=== PATIENT | female | born 1975 | race Caucasian/White ===

== ENCOUNTER → 2016-12-24 | Outpatient (CLI) | payer OTHER ==
--- NOTE | 2016-12-24 08:18 | MM ---
Reason for exam: clinical finding. History: Family history of breast cancer in mother at age 30. Indicated problem(s): pain in both breasts. Physical Findings: Nurse Summary: 0.5cm nodule in the right breast at 8:30 (nurse dallin). MG Diagnostic Mammo w CAD LIBERTAD Bilateral CC and MLO view(s) were taken. There are scattered fibroglandular densities. There is chronic nodularity in the right breast. These results were verbally communicated with the patient and result sheet given to the patient on 12/24/16. ASSESSMENT: Incomplete: need additional imaging evaluation, BI-RAD 0 RECOMMENDATION: Ultrasound of the right breast.
--- NOTE | 2016-12-24 08:20 | USB ---
Reason for exam: additional evaluation requested from abnormal screening. History: Family history of breast cancer in mother at age 30. US Breast Limited RT Right breast ultrasound demonstrates no cystic or solid lesion seen. These results were verbally communicated with the patient and result sheet given to the patient on 12/24/16. ASSESSMENT: Probably benign, BI-RAD 3 RECOMMENDATION: Follow-up diagnostic mammogram of the right breast in 6 months. Manage patient on a clinical basis. Negative mammogram/sonogram should not deter biopsy of clinically palpable lesion.
== END | disposition home or self-care (01) ==
LOC: RADMAMWWP 06:57
PROVIDERS: ATTEND Family Medicine
DX: R92.2 Inconclusive mammogram (principal); R92.8 Other abnormal and inconclusive findings on diagnostic imaging of breast; Z80.3 Family history of malignant neoplasm of breast
CPT/HCPCS: 76642; G0204

== ENCOUNTER → 2017-02-07 | Outpatient (CLI) | payer OTHER ==
--- NOTE | 2017-02-07 09:31 | MR ---
EXAMINATION TYPE: MR brain wo con DATE OF EXAM: 02/07/2017 9:25 AM. COMPARISON: CT scan of the brain dated 02/18/2011. HISTORY: Slurred speech. Technique: Multiplanar, multiecho imaging of the brain was obtained without intravenous contrast. FINDINGS: Structures are unremarkable. There is a normal craniocervical junction. Echoplanar diffusion imaging shows no evidence of restricted diffusion. There are normal vascular flow voids. The orbits are normal. There is no evidence of a CP angle mass lesion. No focal lesion, mass effect or midline shift is seen. I do not see evidence of intracranial blood. IMPRESSION: NORMAL MRI OF THE BRAIN.
== END | disposition home or self-care (01) ==
LOC: RADMRIMAIN 08:28
PROVIDERS: ATTEND Psychiatry & Neurology Neurology
DX: R47.81 Slurred speech (principal)
CPT/HCPCS: 70551

== ENCOUNTER → 2017-07-30 | Outpatient (CLI) | payer OTHER ==
--- NOTE | 2017-07-30 08:23 | MM ---
Reason for exam: follow-up at short interval from prior study. Last mammogram was performed 7 months ago. History: Family history of breast cancer in mother at age 30. Physical Findings: Nurse did not find any significant physical abnormalities on exam. MG Diagnostic Mammo RT w CAD CC and MLO view(s) were taken of the right breast. Prior study comparison: December 24, 2016, bilateral MG diagnostic mammo w CAD LIBERTAD. There are scattered fibroglandular densities. There is no discrete abnormality. No significant new findings when compared with previous films. These results were verbally communicated with the patient and result sheet given to the patient on 07/30/17. ASSESSMENT: Negative, BI-RAD 1 RECOMMENDATION: Routine screening mammogram of both breasts in 6 months. Back on schedule for December 2017.
== END | disposition home or self-care (01) ==
LOC: RADMAMWWP 07:37
PROVIDERS: ATTEND Family Medicine
DX: R92.8 Other abnormal and inconclusive findings on diagnostic imaging of breast (principal)
CPT/HCPCS: 77065

== ENCOUNTER → 2018-04-18 | Outpatient (CLI) | payer OTHER ==
--- NOTE | 2018-04-21 11:00 | MM ---
Reason for exam: screening (asymptomatic). Last mammogram was performed 9 months ago. History: Family history of breast cancer in mother at age 30. Physical Findings: A clinical breast exam by your physician is recommended on an annual basis and results should be correlated with mammographic findings. MG 3D Screening Mammo W/Cad Bilateral CC and MLO view(s) were taken. Prior study comparison: July 30, 2017, right breast MG diagnostic mammo RT w CAD. December 24, 2016, bilateral MG diagnostic mammo w CAD LIBERTAD. There are scattered fibroglandular densities. Right intramammary node noted. No suspicious abnormality. No significant changes when compared with prior studies. ASSESSMENT: Negative, BI-RAD 1 RECOMMENDATION: Routine screening mammogram of both breasts in 1 year.
== END | disposition home or self-care (01) ==
LOC: RADMAMWWP 08:37
PROVIDERS: ATTEND Family Medicine
DX: Z12.31 Encounter for screening mammogram for malignant neoplasm of breast (principal); Z80.3 Family history of malignant neoplasm of breast
CPT/HCPCS: 77063; 77067

== ENCOUNTER 2019-03-27 15:48 | Inpatient (IN) | payer MEDICAID, OTHER ==
--- NOTE | 2019-03-27 16:34 | ED ---
General Adult HPI - General Source: patient Mode of arrival: EMS Limitations: no limitations <Zacarias Mullen - Last Filed: 03/27/19 16:58> <Vance Guo - Last Filed: 03/27/19 20:36> - General Chief complaint: Psychiatric Symptoms Stated complaint: EPS eval Time Seen by Provider: 03/27/19 16:26 - History of Present Illness Initial comments: Dictation was produced using [employer] dictation software. please excuse any grammatical, word or spelling errors. Chief Complaint: 43 year old female brought in by EMS for suicidal ideation. History of Present Illness: It is a 43-year-old female who was brought in by EMS for suicidal ideation. Patient was in an argument with her boyfriend and said something along the lines of I don't want to live anymore. Reports that she said he states that she was upset. Her significant other called enforcement.. Enforcement became involved" patient. Patient reports that she said these things out of this appointment. She was upset with her significant other due to family issues. He has no medical complaints at this time. The ROS documented in this emergency department record has been reviewed and confirmed by me. Those systems with pertinent positive or negative responses have been documented in the HPI. All other systems are other negative and/or noncontributory. PHYSICAL EXAM: General Impression: Alert and oriented x3, not in acute distress HEENT: Normocephalic atraumatic, extra-ocular movements intact, pupils equal and reactive to light bilaterally, mucous membranes moist. Cardiovascular: Heart regular rate and rhythm, S1&S2 audible, no murmurs, rubs or gallops Chest: Lungs clear to auscultation bilaterally, no rhonchi, no wheeze, no rales Abdomen: Bowel sounds present, abdomen soft, non-tender, non-distended, no organomegaly Musculoskeletal: Pulses present and equal in all extremities, no peripheral edema Motor: no focal deficits noted Neurological: CN II-XII grossly intact, no focal motor or sensory deficits noted Skin: Intact with no visualized rashes Psych: Normal affect and mood ED course: 33-year-old female presents with suicidal ideation. She was petition by [facility]. She is cooperative. She denies any medical complaints at this time. Signs upon arrival are within acceptable limits. Physical examination is benign. Patient is medically cleared for EPS evaluation. Patient care sent out to oncoming physician for follow-up of EPS recommendations. (Zacarias Mullen) - Related Data Home Medications Medication Instructions Recorded Confirmed buPROPion XL [Wellbutrin Xl] 300 mg PO HS 03/28/15 03/27/19 oxyCODONE-APAP 10-325MG [Percocet 1 tab PO QID PRN 03/28/15 03/27/19 10-325] Cholecalciferol [Vitamin D3] 5,000 unit PO DAILY 06/04/18 03/27/19 Escitalopram [Lexapro] 20 mg PO DAILY 06/04/18 03/27/19 Levothyroxine Sodium [Synthroid] 75 mcg PO DAILY 06/04/18 03/27/19 OXcarbazepine [Trileptal] 600 mg PO BID 06/04/18 03/27/19 busPIRone HCL [Buspar] 30 mg PO BID 06/04/18 03/27/19 risperiDONE 6 mg PO BID 06/04/18 03/27/19 Allergies Allergy/AdvReac Type Severity Reaction Status Date / Time cortisone [Cortisone] Allergy "FELT LIKE Verified 03/27/19 16:32 THROAT WAS CLOSING UP" latex Allergy Rash/Hives, Verified 03/27/19 16:32 ITCHING STEROIDS Allergy "FELT LIKE Uncoded 03/27/19 16:32 THROAT WAS CLOSING UP" Review of Systems ROS Other: All systems not noted in ROS Statement are negative. <Zacarias Mullen - Last Filed: 03/27/19 16:58> ROS Other: All systems not noted in ROS Statement are negative. <Vance Guo - Last Filed: 03/27/19 20:36> ROS Statement: Those systems with pertinent positive or pertinent negative responses have been documented in the HPI. Past Medical History Past Medical History: Asthma, Thyroid Disorder Additional Past Medical History / Comment(s): BACK PAIN, History of Any Multi-Drug Resistant Organisms: None Reported Past Surgical History: Hernia Repair, Tubal Ligation, Uterine Ablation Additional Past Surgical History / Comment(s): CYST ON FACE REMOVED, OVARY REMOVED, HIATAL HERNIA REPAIR Past Anesthesia/Blood Transfusion Reactions: Motion Sickness Past Psychological History: Anxiety, Bipolar, Panic Disorder Smoking Status: Current every day smoker Past Alcohol Use History: None Reported Past Drug Use History: Cocaine - Past Family History Mother Family Medical History: Cancer Additional Family Medical History / Comment(s): BREAST <Zacarias Mullen - Last Filed: 03/27/19 16:58> General Exam Limitations: no limitations <Zacarias Mullen - Last Filed: 03/27/19 16:58> Course Vital Signs 03/27/19 16:14 Temperature 97.0 F L Pulse Rate 74 Respiratory 18 Rate Blood Pressure 114/77 O2 Sat by Pulse 94 L Oximetry Medical Decision Making <Vance Guo - Last Filed: 03/27/19 20:36> - Medical Decision Making Patient seen by mental health services with plan for admission (Vance Guo) Disposition <Zacarias Mullen - Last Filed: 03/27/19 16:58> Is patient prescribed a controlled substance at d/c from ED?: No Decision Time: 20:36 <Vance Guo - Last Filed: 03/27/19 20:36> Clinical Impression: Depression Disposition: TRANSFER TO PSYCH HOSP/UNIT Referrals: Lawrence David MD [Primary Care Provider] - 1-2 days
[2019-03-27 20:59] LABS: Phencyclidine Screen,Urine Not Detected (NotDetected); Urn Cannabinoid Scrn Not Detected (NotDetected)
[2019-03-27 21:00] LABS: Amphetamine Screen,Urine Detected (NotDetected); Barbiturate Screen,Urine Not Detected (NotDetected); Benzodiazepines Screen,Urine Not Detected (NotDetected); Cocaine Screen,Urine Detected (NotDetected); Methadone Screen, Urine Not Detected (NotDetected); Opiate Screen,Urine Not Detected (NotDetected); Oxycodone Screen, Urine Detected (NotDetected); Tricyclic Antidepressant,Urine Not Detected (NotDetected)
[2019-03-27] MEDS ORDERED: LORazepam 1 MG TAB PO PRN (21:18)
[2019-03-27] MEDS ORDERED: ZIPRASIDONE 20 MG VIAL IM PRN (21:18)
[2019-03-27] MEDS ORDERED: MAGNESIUM HYDROXIDE 2,400 MG/10 ML CUP PO PRN (21:18)
[2019-03-27] MEDS ORDERED: MAG HYDROX/AL HYDROX/SIMETH 30 ML CUP PO PRN (21:18)
[2019-03-27] MEDS: HYDROcodone/APAP 5-325MG 1 EACH TAB PO SCH (21:57)
[2019-03-28] MEDS: LEVOTHYROXINE 75 MCG TAB PO SCH (06:06)
[2019-03-28 07:00] LABS: Anisocytosis Slight; HCT 41.2 % (34.0-46.0); HGB 13.5 gm/dL (11.4-16.0); MCH 27.7 pg (25.0-35.0); MCHC 32.8 g/dL (31.0-37.0); MCV 84.4 fL (80.0-100.0); Mean Platelet Volume 8.3; Platelet Count 391 k/uL (150-450); RBC 4.88 m/uL (3.80-5.40); RDW 17.3 % (11.5-15.5); WBC 9.8 k/uL (3.8-10.6)
[2019-03-28 07:08] LABS: ALT 22 U/L (9-52); AST 22 U/L (14-36); African American GFR (CKD) >90 (>60 ml/min/1.73 sqM); Albumin 3.2 g/dL (3.5-5.0); Alkaline Phosphatase 68 U/L (38-126); Anion Gap 6 mmol/L; Blood Urea Nitrogen 9 mg/dL (7-17); Calcium 8.6 mg/dL (8.4-10.2); Carbon Dioxide 28 mmol/L (22-30); Chloride 105 mmol/L (98-107); Cholesterol 137 mg/dL (<200); Glucose 97 mg/dL (74-99); HDL Cholesterol 40 mg/dL (40-60); LDL Cholesterol,Calculated 79 mg/dL (0-99); Potassium 3.5 mmol/L (3.5-5.1); Sodium 139 mmol/L (137-145); Total Bilirubin 0.2 mg/dL (0.2-1.3); Total Protein 5.4 g/dL (6.3-8.2); Triglycerides 90 mg/dL (<150)
[2019-03-28 07:24] LABS: Lymphocytes # (M) 3.53 k/uL (1.0-4.8); Neutrophils % (M) 60 %; Nucleated Red Blood Cells 0 /100 WBC (0-0); Total Cells Counted 100
[2019-03-28] MEDS ORDERED: risperiDONE 1 MG TAB PO SCH (09:00)
[2019-03-28] MEDS: NICOTINE 21MG/24HR PATCH TRANSDERM SCH (09:47)
[2019-03-28] MEDS: HYDROcodone/APAP 5-325MG 1 EACH TAB PO SCH ×3 (09:48→20:21)
[2019-03-28] MEDS: buPROPion XL 300 MG TAB.ER.24H PO SCH (09:48)
[2019-03-28] MEDS: busPIRone HCl 10 MG TAB PO SCH ×2 (09:48→20:21)
[2019-03-28] MEDS: ESCITALOPRAM 20 MG TAB PO SCH (09:48)
[2019-03-28] MEDS: CHOLECALCIFEROL 1,000 UNIT TAB PO SCH (09:49)
[2019-03-28] MEDS: OXcarbazepine 300 MG TAB PO SCH ×2 (09:49→20:21)
--- NOTE | 2019-03-28 12:38 | P.HP ---
Psychiatric H&P - . History & Physical: Allergies Allergy/AdvReac Type Severity Reaction Status Date / Time cortisone [Cortisone] Allergy "FELT LIKE Verified 03/27/19 16:32 THROAT WAS CLOSING UP" latex Allergy Rash/Hives, Verified 03/27/19 16:32 ITCHING STEROIDS Allergy "FELT LIKE Uncoded 03/27/19 16:32 THROAT WAS CLOSING UP" Vital Signs Temp 98.4 F 03/28/19 06:35 Pulse 58 L 03/28/19 06:35 Resp 16 03/28/19 06:35 BP 114/74 03/28/19 06:35 Pulse Ox 94 L 03/27/19 16:14 Intake & Output 03/27/19 03/28/19 03/28/19 18:59 06:59 18:59 Weight 69.4 kg Laboratory Last Values WBC 9.8 k/uL (3.8-10.6) 03/27/19 22:01 RBC 4.88 m/uL (3.80-5.40) 03/27/19 22:01 Hgb 13.5 gm/dL (11.4-16.0) 03/27/19 22:01 Hct 41.2 % (34.0-46.0) 03/27/19 22:01 MCV 84.4 fL (80.0-100.0) 03/27/19 22:01 MCH 27.7 pg (25.0-35.0) 03/27/19 22:01 MCHC 32.8 g/dL (31.0-37.0) 03/27/19 22:01 RDW 17.3 % (11.5-15.5) H 03/27/19 22:01 Plt Count 391 k/uL (150-450) 03/27/19 22:01 Neutrophils % (Manual) 60 % 03/27/19 22:01 Lymphocytes % (Manual) 36 % 03/27/19 22:01 Monocytes % (Manual) 2 % 03/27/19 22:01 Eosinophils % (Manual) 2 % 03/27/19 22:01 Neutrophils # (Manual) 5.88 k/uL (1.3-7.7) 03/27/19 22:01 Lymphocytes # (Manual) 3.53 k/uL (1.0-4.8) 03/27/19 22:01 Monocytes # (Manual) 0.20 k/uL (0-1.0) 03/27/19 22:01 Eosinophils # (Manual) 0.20 k/uL (0-0.7) 03/27/19 22:01 Nucleated RBCs 0 /100 WBC (0-0) 03/27/19 22:01 Manual Slide Review Performed 03/27/19 22:01 Anisocytosis Slight 03/27/19 22: Sodium 139 mmol/L (137-145) 03/27/19 22: Potassium 3.5 mmol/L (3.5-5.1) 03/27/19 22: Chloride 105 mmol/L (98-107) 03/27/19 22:01 Carbon Dioxide 28 mmol/L (22-30) 03/27/19 22: Anion Gap 6 mmol/L 03/27/19 22: BUN 9 mg/dL (7-17) 03/27/19 22: Creatinine 0.61 mg/dL (0.52-1.04) 03/27/19 22: Est GFR (CKD-EPI)AfAm >90 (>60 ml/min/1.73 sqM) 03/27/19 22:01 Est GFR (CKD-EPI)NonAf >90 (>60 ml/min/1.73 sqM) 03/27/19 22: Glucose 97 mg/dL (74-99) 03/27/19 22: Calcium 8.6 mg/dL (8.4-10.2) 03/27/19 22: Total Bilirubin 0.2 mg/dL (0.2-1.3) 03/27/19 22: AST 22 U/L (14-36) 03/27/19 22:01 ALT 22 U/L (9-52) 03/27/19 22: Alkaline Phosphatase 68 U/L (38-126) 03/27/19 22: Total Protein 5.4 g/dL (6.3-8.2) L 03/27/19 22: Albumin 3.2 g/dL (3.5-5.0) L 03/27/19 22:01 Triglycerides 90 mg/dL (<150) 03/27/19 22: Cholesterol 137 mg/dL (<200) 03/27/19 22:01 LDL Cholesterol, Calc 79 mg/dL (0-99) 03/27/19 22:01 HDL Cholesterol 40 mg/dL (40-60) 03/27/19 22:01 TSH 1.810 mIU/L (0.465-4.680) 03/27/19 22:01 Urine Opiates Screen Not Detected (NotDetected) 03/27/19 18:46 Ur Oxycodone Screen Detected (NotDetected) H 03/27/19 18:46 Urine Methadone Screen Not Detected (NotDetected) 03/27/19 18:46 Ur Propoxyphene Screen Not Detected (NotDetected) 03/27/19 18:46 Ur Barbiturates Screen Not Detected (NotDetected) 03/27/19 18:46 U Tricyclic Antidepress Not Detected (NotDetected) 03/27/19 18:46 Ur Phencyclidine Scrn Not Detected (NotDetected) 03/27/19 18:46 Ur Amphetamines Screen Detected (NotDetected) H 03/27/19 18:46 U Methamphetamines Scrn Not Detected (NotDetected) 03/27/19 18:46 U Benzodiazepines Scrn Not Detected (NotDetected) 03/27/19 18:46 Urine Cocaine Screen Detected (NotDetected) H 03/27/19 18:46 U Marijuana (THC) Screen Not Detected (NotDetected) 03/27/19 18:46 03/28/19 12:27 IDENTIFYING DATA: This patient is a 43-year-old single female was admitted to the mental health unit with suicidal ideation. HPI: Patient presented with a police petition indicating she had threatened suicide via overdose. The patient was at home with family and had gotten into a verbal altercation with her boyfriend. She states she was overwhelmed and threatened to overdose in an effort to kill herself. She states she's been fighting with her boyfriend over the last several weeks and it seems to be escalating. She has been more tearful energies been low appetites decreased and she is feeling depressed. She describes hopeless feelings. She reports no homicidal ideation intent or plan. She endorses no auditory or visual hallucinations or any specific delusions. She endorses no hypomanic or manic episodes. She describes intermittent feelings of anxiety she describes a history of panic attacks. PAST PSYCHIATRIC HISTORY: This is the patient's second inpatient psychiatric hospitalization, she endorses a history of suicide attempt in 2003 when she overdosed with 20 pills. She is currently prescribed Wellbutrin XL 300 mg in the morning Lexapro 20 mg daily Risperdal 3 mg twice daily Trileptal 600 mg twice daily BuSpar 30 mg twice daily. She states she's been on these medicines for several years with the exception of BuSpar which was more recently added. Her previous psychiatrist Dr. Farr had initiated most of the psychotropic medications. She struggles in identifying her own diagnosis states that she has depression and anxiety. She later states she has bipolar 2 disorder but insists she has no history of hypomanic or manic episodes. PMH: Chronic back pain she sees Dr. Arce with pain management and is given Percocet 10 mg every 4 hours. She is treated for hypothyroidism with levothyroxin. ALLERGIES: Steroids MEDICATIONS: Refer to [facility] CHEMICAL DEPENDENCY HISTORY: She reports no use of alcohol or marijuana, urine drug screen was positive for cocaine and amphetamine and oxycodone. She states that she infrequently uses cocaine and refuses to provide a frequency of use, she states she does not want this information shared with her pain physician as he will discontinue her oxycodone. She insists that she has used no amphetamine. No history of inpatient chemical dependency treatment that she reports. FAMILY PSYCHIATRIC HISTORY: Her mother was known to have bipolar disorder, no suicides in the family FAMILY CHEMICAL DEPENDENCY HISTORY: None reported SOCIAL HISTORY: Patient is 43 years old she is single she has 2 children ages 14 and 24 she resides with her daughter and boyfriend. She has been with her boyfriend off and on for 18 years. She went as far as 10th grade in school no history of service. She is on disability for her back pain and depression. Legal history includes a drunken disorderly charge at age 17 and uttering and publishing charge at age 28. No abuse history reported. MENTAL STATUS EXAM: The patient is alert but tired appearing she is not lethargic. She has a disheveled appearance she is dressed in hospital gowns. Eye contact is intermittent. She maintains a bland affect. She is noted to demonstrate a repetitive movement of her lower jaw and she indicates that she chews her tongue. She demonstrates a pill-rolling tremor of her right hand at rest. She reports a depressed mood with hopelessness thinking and suicidal thoughts. She indicates that she is having a panic attack while we were talking but there was no objective evidence of that report area She reports no homicidal ideation intent or plan. She reports no auditory or visual hallucinations or any specific delusions. She was not particularly motivated for this interview she provided no spontaneous information she provided only brief answers and was interested in concluding the interview to go back down to her room. She demonstrated no verbal or physical aggressiveness. She is oriented to person place and date. She is able to name the days of the week backwards. STRENGTHS/WEAKNESSES: Strengths: Income: Housing support from [facility], weaknesses: Use of cocaine, impaired coping skills in the context of altercations with her boyfriend INTELLECTUAL FUNCTIONING: Below average to average IMPRESSIONS: [] 1. Depression and specified rule out major depressive disorder recurrent severe without psychosis, anxiety unspecified, rule out bipolar disorder, cocaine use disorder, rule out opioid use disorder 2. Rule out personality disorder traits PLAN: The patient has been admitted to the mental health unit voluntarily. We reviewed her presenting symptoms and treatment options. At this time she feels that no change needs to occur to her psychotropic medications. We discussed that her Risperdal dose is higher and they could be contributing to the movement disorders noted above i.e. the pill-rolling tremor and the tongue chewing behavior. We also discussed that 6 mg of Risperdal they could contribute to f eelings of fatigue throughout the day. Her current prescription of Percocet could also contribute to fatigue throughout the day. We will continue the Risperdal the lower the dose to 2 mg twice daily, continue Lexapro BuSpar Wellbutrin XL Trileptal as written. Trileptal level has been ordered. She will be seen by internal medicine for routine history and physical exam. It would be helpful to obtain more information from [facility] in terms of her diagnosis. Social work will complete a psychosocial assessment and begin discharge planning. We'll involve family/friends in treatment and discharge planning as she will allow. Vital signs will be reviewed. Although she has not attended so far we will encourage participation in groups.
[2019-03-28 18:20] LABS: Hemoglobin A1C 6.1 % (4.0-6.0)
[2019-03-28] MEDS: risperiDONE 2 MG TAB PO SCH (20:21)
[2019-03-29] MEDS: LEVOTHYROXINE 75 MCG TAB PO SCH (05:51)
[2019-03-29] MEDS: CHOLECALCIFEROL 1,000 UNIT TAB PO SCH (08:27)
[2019-03-29] MEDS: busPIRone HCl 10 MG TAB PO SCH ×2 (08:27→20:35)
[2019-03-29] MEDS: HYDROcodone/APAP 5-325MG 1 EACH TAB PO SCH ×3 (08:28→20:36)
[2019-03-29] MEDS: buPROPion XL 300 MG TAB.ER.24H PO SCH (08:28)
[2019-03-29] MEDS: ESCITALOPRAM 20 MG TAB PO SCH (08:28)
[2019-03-29] MEDS: OXcarbazepine 300 MG TAB PO SCH ×2 (08:28→20:35)
[2019-03-29] MEDS: NICOTINE 21MG/24HR PATCH TRANSDERM SCH (08:28)
[2019-03-29] MEDS: risperiDONE 2 MG TAB PO SCH ×2 (08:28→20:35)
--- NOTE | 2019-03-29 12:08 | P.PN ---
Progress Note - Text Interval history: The patient is found in her room she follows me to an interview room. She indicates her mood is better. She states she feels more awake. She indicates that she had not slept well 2 days prior to this admission and slept most of the day yesterday. Appetite intact she ate breakfast. She asks for Prilosec to be restarted and asked for something for her cough. She did not attend groups this morning but states she will attend this afternoon. She states her's been a complete resolution of suicidal thoughts. She indicates she had a visit from her boyfriend last evening that went well. Mental status exam: The patient is alert more so than yesterday. She seated in the chair calmly. Affect is constricted. Eye contacts appropriate. She initiates a little conversation spontaneously but mainly responds to questions. She reports her mood is fine she is reporting no suicidal ideation intent or plan. She is reporting no auditory or visual hallucinations or any specific delusions. She demonstrates no tangential thinking loose associations or flight of ideas. She does not appear hypomanic or manic active evidence of psychosis. She seated calmly in the chair without any verbal or physical aggressiveness. She continues to demonstrate a tongue shooing motion and pill-rolling tremor of her hand as noted yesterday. She is oriented to person place and date. Plan: The patient indicates that she was overwhelmed by the altercations with her boyfriend and made suicidal statements but she didn't really intend to act on those thoughts. She reports that they had a good visit and she has no suicidal ideation intent or plan. We will continue her medications as written. Consideration could be given to reducing the Risperdal further and possibly investigating whether or not an antipsychotic is needed. Further contact with community mental health would be needed. We will monitor her for safety and encourage participation in the milieu. Vital signs reviewed.
[2019-03-29] MEDS: ACETAMINOPHEN TAB 325 MG TAB PO PRN (12:10)
[2019-03-29] MEDS: guaiFENesin SYRUP 100MG/5ML 200 MG/10 ML CUP PO PRN ×2 (12:37→17:50)
[2019-03-29 16:55] VITALS: BMI 27.2
[2019-03-29] MEDS: PANTOPRAZOLE 40 MG TABLET PO SCH (17:51)
--- NOTE | 2019-03-29 23:55 | CONS ---
CONSULTATION SUBJECTIVE: A 43-year-old white female came into the mental health unit for severe depression fighting with her boyfriend at home. Severely depressed. Medical consult here. She has a history of hypothyroidism, nicotine addiction, GERD, which is causing a cough, nicotine addiction for which she takes Wellbutrin XR at home, as well as history of anxiety and mood disorder. HOME MEDICATIONS: 1. Risperdal 6 mg b.i.d. 2. She goes to [facility] for some Percocet. 3. BuSpar 30 mg b.i.d. 4. Wellbutrin XR 300 mg daily. 5. Trileptal 600 mg b.i.d. 6. Synthroid 75 mcg daily. 7. Lexapro 20 mg daily. 8. Vitamin D 5000 units daily. REVIEW OF SYSTEMS: Fourteen point review of systems negative except for mentioned in HPI. LABORATORY DATA: Labs reviewed. PHYSICAL EXAMINATION: Cardiovascular S1-S2. LUNGS: Clear. GI soft. Hematology negative Homans. Psych fair mood and affect. NEUROLOGIC: Alert and oriented x3. ASSESSMENT: 1. Hypothyroidism. 2. Depression. 3. Gastroesophageal reflux disease. 4. Nicotine addiction. 5. Dyslipidemia. PLAN: 1. Continue home medications. 2. Wait for psych consultation. 3. Nicotine patch. 4. Please see further orders for consult. MMODL / IJN: [id number] /
[2019-03-30] MEDS: LEVOTHYROXINE 75 MCG TAB PO SCH (06:42)
[2019-03-30] MEDS: PANTOPRAZOLE 40 MG TABLET PO SCH ×2 (08:24→17:36)
[2019-03-30] MEDS: ESCITALOPRAM 20 MG TAB PO SCH (08:24)
[2019-03-30] MEDS: OXcarbazepine 300 MG TAB PO SCH ×2 (08:24→20:35)
[2019-03-30] MEDS: NICOTINE 21MG/24HR PATCH TRANSDERM SCH (08:24)
[2019-03-30] MEDS: CHOLECALCIFEROL 1,000 UNIT TAB PO SCH (08:24)
[2019-03-30] MEDS: busPIRone HCl 10 MG TAB PO SCH ×2 (08:24→20:34)
[2019-03-30] MEDS: HYDROcodone/APAP 5-325MG 1 EACH TAB PO SCH ×3 (08:26→20:36)
[2019-03-30] MEDS: risperiDONE 2 MG TAB PO SCH ×2 (08:26→20:36)
[2019-03-30] MEDS: buPROPion XL 300 MG TAB.ER.24H PO SCH (08:34)
--- NOTE | 2019-03-30 11:21 | P.PN ---
Progress Note - Text Interval history: The patient is found in her room she follows me to an interview room. She indicates her mood is improving. She was able to sleep last night she has been eating she selectively attended group. We reviewed her current psychotropic medications her questions were answered. She indicates her boyfriend visited over the weekend. She states that he has been more supportive. We spent some time discussing the need for them to communicate more effectively and use strategies to compromise. Per [facility] the patient has been previously diagnosed with bipolar 2 disorder. Mental status exam: The patient is alert and fact more alert than the previous 2 days. She is dressed in her own clothing hygiene grooming adequate. Eye contact appropriate. She continues to have an ongoing movement of her lower jaw and tongue shooing motion. She demonstrates some pill-rolling tremor of her right hand. She reports her mood is improving she reports hopelessness thinking is improving. She feels safe she is reporting no homicidal ideation intent or plan. She is endorsing no auditory or visual hallucinations or any specific delusions. There is no observed evidence of psychosis. She does not appear hypomanic or manic at this time. Insight and judgment improving. Impression/plan: Depression, cocaine use disorder, the patient will continue on her current psychotropic medications. We discussed lowering the Risperdal further but she prefers to continue her medications as written and she will follow with her outpatient psychiatrist. She is encouraged to more fully participate in the milieu. Social work will attempt to arrange a support meeting. We will monitor her for safety and further and if she demonstrates continued improvement/stability we will consider discharging her tomorrow.
[2019-03-30] MEDS: guaiFENesin SYRUP 100MG/5ML 200 MG/10 ML CUP PO PRN ×2 (11:35→18:58)
[2019-03-30] MEDS: ACETAMINOPHEN TAB 325 MG TAB PO PRN (11:51)
[2019-03-30] MEDS ORDERED: BENZOCAINE/MENTHOL LOZENG 1 EACH LOZENGE MUCOUS MEM PRN (20:07)
[2019-03-31] MEDS: LEVOTHYROXINE 75 MCG TAB PO SCH (06:23)
[2019-03-31 06:52] VITALS: BP 102/56; PULSE 63; RESP 18; TEMP 98.3
[2019-03-31] MEDS: CHOLECALCIFEROL 1,000 UNIT TAB PO SCH (08:25)
[2019-03-31] MEDS: NICOTINE 21MG/24HR PATCH TRANSDERM SCH (08:25)
[2019-03-31] MEDS: HYDROcodone/APAP 5-325MG 1 EACH TAB PO SCH ×2 (08:26→14:58)
[2019-03-31] MEDS: PANTOPRAZOLE 40 MG TABLET PO SCH (08:27)
[2019-03-31] MEDS: busPIRone HCl 10 MG TAB PO SCH (08:27)
[2019-03-31] MEDS: risperiDONE 2 MG TAB PO SCH (08:27)
[2019-03-31] MEDS: OXcarbazepine 300 MG TAB PO SCH (08:27)
[2019-03-31] MEDS: buPROPion XL 300 MG TAB.ER.24H PO SCH (08:27)
[2019-03-31] MEDS: ESCITALOPRAM 20 MG TAB PO SCH (08:27)
--- NOTE | 2019-03-31 09:35 | P.DS ---
Providers Date of admission: 03/27/19 21:10 Expected date of discharge: 03/31/19 Attending physician: Anant Darling Consults: 03/27/19 21:18 Consult Physician Routine Consulting Provider: Lawrence David Consult Reason/Comments: medical management Do you want consulting provider notified?: Yes, Notify in am Primary care physician: Lawrence David - Discharge Diagnosis(es) (1) Bipolar II disorder, most recent episode major depressive Current Visit: Yes Status: Acute Priority: High (2) Cocaine use disorder Current Visit: Yes Status: Acute Priority: High Hospital Course: Brief summary of admission note: This patient is a 43-year-old single female was admitted to the mental health unit with suicidal ideation. The patient presented with a petition completed by police communications operator stating she had threatened suicide via overdose. The patient was at home with family had gotten into a verbal altercation with her boyfriend and felt overwhelmed. He states that they've been fighting over the last several weeks. She describes being more tearful, energy has been low, she's been feeling more depressed and hopeless. She has a history of bipolar 2 disorder she is treated with [facility]. She was also diagnosed with cocaine use disorder. Her drug screen was positive for oxycodone, amphetamines, and cocaine. Summary of hospital course: The patient was admitted to the mental health unit voluntarily. We reviewed her presenting symptoms and treatment options. She was continued on her Risperdal Trileptal Lexapro BuSpar. She was seen by internal medicine for routine history and physical exam. She met with social work to complete a psychosocial assessment and begin discharge planning. In evaluating her it was observed that she was fairly sedated and she was also demonstrating an abnormal mouth movement as well as a pill-rolling tremor. We decided to reduce her Risperdal to 2 mg twice daily. She was encouraged to consider having us reduce it further but she wanted to continue the medicine at its current dose and talk to her outpatient psychiatrist. She had been on the Risperdal for an extended period of time originally started by Dr. Farr. The patient selectively attended groups she did shower she participated in meals. Ultimately she states that she was not truly suicidal but was overwhelmed by the altercations with her boyfriend. He has visited her over the weekend and those interactions seemed to go better. She does have a support meeting scheduled for this afternoon. Mental status exam: The patient is alert she is dressed in her own clothing hygiene grooming adequate. Speech is fluent spontaneous nonpressured. She reports her mood is much improved. She denies having any hopelessness thinking she denies having any suicidal ideation intent or plan no homicidal ideation intent or plan. She is endorsing no auditory or visual hallucinations or any specific delusions. There is no observed evidence of psychosis. She demonstrates no tangential thinking loose associations or flight of ideas. She does not appear hypomanic or manic. Insight and judgment grossly intact. She is oriented to person place and date. She continues to demonstrate the repetitive involuntary mouth movement where she seems to 2 on her tongue. She has a pill-rolling tremor of her upper extremity. She demonstrates no verbal or physical aggressiveness. She demonstrates future oriented thinking. Impressions 1. Bipolar 2 disorder most recent depressed, cocaine use disorder Plan: The patient will be discharged mental health unit today to return home residing with her boyfriend. She will continue on Wellbutrin XL 300 mg daily BuSpar 30 mg twice daily Lexapro 20 mg daily Trileptal 600 mg twice daily Risperdal 2 mg twice daily. Consideration can be given to reducing the Risperdal further and possibly eliminating it if it is not necessary as a mood stabilizer. She wishes to confer with her outpatient psychiatrist further regarding that medication. She does not wish to participate in inpatient chemical dependency treatment. She does not wish to have any medication prescribed regarding her substance use disorder. She does wish to continue on the nicotine patch. At this time there is no imminent safety risk she is appropriate for transition outpatient care. She is instructed to return to the hospital with any safety concerns. She is instructed to abstain from any use of alcohol marijuana or illicit drugs as these can elevate her safety risk. Patient Condition at Discharge: Stable Plan - Discharge Summary Discharge Rx Participant: No New Discharge Prescriptions: New Nicotine 21Mg/24Hr Patch [Habitrol] 1 patch TRANSDERM DAILY #14 patch risperiDONE [RisperDAL] 2 mg PO BID #60 tab Continue oxyCODONE-APAP 10-325MG [Percocet 10-325 mg] 1 tab PO QID PRN PRN Reason: Pain Levothyroxine Sodium [Synthroid] 75 mcg PO DAILY Cholecalciferol [Vitamin D3 (25 Mcg = 1000 Iu)] 5,000 unit PO DAILY busPIRone HCL [Buspar] 30 mg PO BID #60 tab Escitalopram [Lexapro] 20 mg PO DAILY #30 tab OXcarbazepine [Trileptal] 600 mg PO BID #60 tab buPROPion XL [Wellbutrin XL] 300 mg PO HS #30 tab Discontinued risperiDONE 6 mg PO BID Discharge Medication List oxyCODONE-APAP 10-325MG [Percocet 10-325 mg] 1 tab PO QID PRN 03/28/15 [History] Cholecalciferol [Vitamin D3 (25 Mcg = 1000 Iu)] 5,000 unit PO DAILY 06/04/18 [History] Levothyroxine Sodium [Synthroid] 75 mcg PO DAILY 06/04/18 [History] Escitalopram [Lexapro] 20 mg PO DAILY #30 tab 03/31/19 [Rx] Nicotine 21Mg/24Hr Patch [Habitrol] 1 patch TRANSDERM DAILY #14 patch 03/31/19 [Rx] OXcarbazepine [Trileptal] 600 mg PO BID #60 tab 03/31/19 [Rx] buPROPion XL [Wellbutrin XL] 300 mg PO HS #30 tab 03/31/19 [Rx] busPIRone HCL [Buspar] 30 mg PO BID #60 tab 03/31/19 [Rx] risperiDONE [RisperDAL] 2 mg PO BID #60 tab 03/31/19 [Rx] Follow up Appointment(s)/Referral(s): Lawrence David MD [Primary Care Provider] - 1-2 days
== END 2019-03-31 15:34 | disposition home or self-care (01) | DRG 885 ==
LOC: EC 15:48 → 3MHU 21:10
PROVIDERS: ADMIT Psychiatry & Neurology Psychiatry; ATTEND Psychiatry & Neurology Psychiatry
DX: F31.30 Bipolar disorder, current episode depressed, mild or moderate severity, unspecified (principal); R45.851 Suicidal ideations; E03.9 Hypothyroidism, unspecified; E78.5 Hyperlipidemia, unspecified; F14.90 Cocaine use, unspecified, uncomplicated; F17.200 Nicotine dependence, unspecified, uncomplicated; F41.0 Panic disorder [episodic paroxysmal anxiety]; J45.909 Unspecified asthma, uncomplicated; K21.9 Gastro-esophageal reflux disease without esophagitis; G89.29 Other chronic pain; M54.9 Dorsalgia, unspecified; Z79.890 Hormone replacement therapy; Z79.899 Other long term (current) drug therapy; Z91.5 Personal history of self-harm; Z88.8 Allergy status to other drugs, medicaments and biological substances; Z91.040 Latex allergy status; Z90.721 Acquired absence of ovaries, unilateral; Z98.51 Tubal ligation status
CPT/HCPCS: 80053; 80061; 80183; 80306; 82075; 83036; 84443; 85025; 99285

== ENCOUNTER → 2020-03-11 | Outpatient (CLI) | payer OTHER ==
--- NOTE | 2020-03-11 14:03 | US ---
EXAMINATION TYPE: US extremity nonvasc mass LT DATE OF EXAM: 03/11/2020 COMPARISON: NONE CLINICAL HISTORY: L FOOT, R22.9 Mass and lumpL FOOT, R22.9 Mass and lump. At patient's palpable is a fluid collection measuring 0.4 x 1.0 x 0.4cm IMPRESSION: Nonspecific fluid collection at the site of clinical concern which may reflect ganglion c yst. Correlate clinically.
== END | disposition home or self-care (01) ==
LOC: RADUSWWP 13:34
PROVIDERS: ATTEND Family Medicine
DX: R22.9 Localized swelling, mass and lump, unspecified (principal)

== ENCOUNTER → 2020-03-26 | Outpatient (CLI) | payer OTHER ==
--- NOTE | 2020-03-26 14:20 | MR ---
EXAMINATION TYPE: MR knee LT wo con DATE OF EXAM: 03/26/2020 COMPARISON: None HISTORY: Lt knee pain Multiplanar multiecho imaging of the left knee was performed with no contrast. There is moderate size knee joint effusion. There is increased signal on the T2 images in the medial femoral condyle. The collateral ligaments are intact. The anterior and posterior cruciate ligaments a re intact. The medial and lateral menisci appear intact. Joint spaces are fairly normal. There is sub cutaneous edema anterior to the patellar tendon. IMPRESSION: Moderate knee joint effusion. Increased density in the medial femoral condyle consistent with large b one bruise. No fracture line seen. Small bone bruise seen in the medial aspect medial tibial condyle. No evidence of ligament or meniscal tear.
== END | disposition home or self-care (01) ==
LOC: RADMRIMAIN 13:25
PROVIDERS: ATTEND Family Medicine
DX: S80.12XA Contusion of left lower leg, initial encounter (principal); M25.462 Effusion, left knee

== ENCOUNTER → 2021-06-09 | Outpatient (CLI) | payer OTHER ==
--- NOTE | 2021-06-09 10:34 | MR ---
EXAMINATION TYPE: MR shoulder LT wo con DATE OF EXAM: 06/09/2021 COMPARISON: None HISTORY: Acute pain L shoulder, Fall on shoulder TECHNIQUE: Multiplanar, multisequence imaging of the left shoulder is performed without contrast. FINDINGS: Rotator Cuff: Some mild increased signal noted along the rotator cuff, some local edema signal [place], no krystle rotator cuff tear. Acromioclavicular Joint: Acromioclavicular joint arthropathy is present, distal acromion is downturne d. Suspect a distal acromial spur Glenohumeral Joint: Intact Labrum: The labrum appears grossly intact given limitation of non-arthrogram study. Biceps Tendon: The long head of biceps is in normal location within bicipital groove, some fluid pres ent along the long head of biceps tendon. Bone marrow signal: No focal abnormal marrow signal is appreciated. Other: Minimal fluid present in the subacromial subdeltoid bursa IMPRESSION: Correlate for tendinosis, impingement
== END | disposition home or self-care (01) ==
LOC: RADMRIMAIN 06:39
PROVIDERS: ATTEND Family Medicine
DX: M25.512 Pain in left shoulder (principal)

== ENCOUNTER → 2021-08-02 | Outpatient (CLI) | payer OTHER ==
--- NOTE | 2021-08-03 05:01 | MR ---
EXAMINATION TYPE: MR lumbar spine wo con DATE OF EXAM: 08/02/2021 COMPARISON: 05/26/2012 HISTORY: Chronic LBP, BLE radiculopathy. Multiplanar multiecho imaging of the lumbar spine without contrast. Lumbar vertebrae have normal alignment. There is mild narrowing and decreased signal in the disks fro m L2 to S1. There is no spinal stenosis. Lumbar nerve roots appear fairly normal. There is a mild pos terior disc bulge at L4-5 without impingement on the neural elements. This extends slightly to the le ft side. Lumbar neural foramina are fairly well-maintained. There is no evidence of compression fract ure. There is no lumbar paraspinal mass. IMPRESSION: Small posterior disc bulging at L4-5 on the left side appears new compared to old exam. No spinal lenora nosis. No fracture.
== END | disposition home or self-care (01) ==
LOC: RADMRIMAIN 17:31
PROVIDERS: ATTEND Dietitian, Registered
DX: M51.16 Intervertebral disc disorders with radiculopathy, lumbar region (principal)
CPT/HCPCS: 72148

== ENCOUNTER → 2021-08-03 | Outpatient (CLI) | payer OTHER ==
--- NOTE | 2021-08-04 06:24 | MR ---
MRI CERVICAL SPINE: CLINICAL HISTORY: Cervical radiculopathy per order. Pain and weakness into both arms. TECHNIQUE: Multiplanar, multisequence imaging of the cervical spine is performed without IV contrast. COMPARISON: None. FINDINGS: Sagittal images of the cervical spine show the craniocervical junction to appear within nor mal limits. The cervical and upper thoracic spinal cord is normal in caliber and signal. Alignment i s straightened with slight grade 1 anterolisthesis C4 and C5 and C5 on C6. Mild disc space narrowing C5-C6 level otherwise the vertebral body and intravertebral disk heights are normal. The bone marrow signal intensity is within normal limits. Axial images at C2-C3 level shows some left-sided uncovertebral facet degenerative changes causing mi ld left-sided neural foraminal narrowing. Axial images at C3-C4 level show left foraminal disc protrusion minimally effacing anterolateral thec al sac and causing moderate left-sided neural foraminal narrowing. Axial images at C4-C5 level shows similar left foraminal disc protrusion causing asymmetric moderate left-sided neural foraminal narrowing. Axial images at C5-C6 level show lobulated broad-based posterior disc protrusion effacing the anterio r thecal sac and causing moderate left-sided neural foraminal narrowing. Axial images at C6-C7 level show focal broad-based left paracentral/foraminal disc protrusion on imag e 13 effacing lateral thecal sac and causing moderate to severe left-sided neural foraminal narrowing . Axial images at C7-T1 level appear within normal limits. IMPRESSION: Multilevel degenerative changes with largest disc herniations noted at C5-C6 and to a gre ater degree at C6-C7 levels as detailed above.
== END | disposition home or self-care (01) ==
LOC: RADMRIMAIN 16:39
PROVIDERS: ATTEND Dietitian, Registered
DX: M47.22 Other spondylosis with radiculopathy, cervical region (principal); M50.123 Cervical disc disorder at C6-C7 level with radiculopathy
CPT/HCPCS: 72141

== ENCOUNTER → 2021-09-25 | Outpatient (CLI) | payer OTHER ==
--- NOTE | 2021-09-25 08:25 | CT ---
EXAMINATION TYPE: CT cervical spine wo con DATE OF EXAM: 09/25/2021 COMPARISON: 08/03/2021 HISTORY: 46-year-old female M47.12, Pain in neck going down arm TECHNIQUE: Contiguous axial scanning of the cervical spine without IV contrast. Coronal and sagittal reconstructions performed. CT DLP: 676 mGycm Automated exposure control for dose reduction was used. FINDINGS: No craniocervical junction abnormality, predental space widening, or prevertebral soft tissue swellin g. Some degenerative change at the C1 dens articulation. Mild to moderate degenerative disc disease C5-C6 with disc space narrowing and disc osteophyte comple x which contiguous. Mild narrowing of the spinal canal at this level. Mild uncovertebral joint arthropathy mid to lower cervical spine. No acute fracture of the cervical spine. Alignment is maintained. Changes result in variable mild neuroforaminal stenoses throughout, more mild to moderate on the left at C5-C6 and C6/C7. IMPRESSION: 1. MILD TO MODERATE DEGENERATIVE DISC DISEASE C5-C6 WITH DISC OSTEOPHYTE COMPLEX CONTRIBUTING TO A LA LD SPINAL CANAL STENOSIS. 2. UNCOVERTEBRAL JOINT ARTHROPATHY MID TO LOWER CERVICAL SPINE WITH VARIABLE MILD NEUROFORAMINAL NARR OWING, MORE MILD TO MODERATE ON THE LEFT AT C5-C6 AND C6 BASES.
== END | disposition home or self-care (01) ==
LOC: RADCTMAIN 06:47
PROVIDERS: ATTEND Neurological Surgery
DX: M50.322 Other cervical disc degeneration at C5-C6 level (principal); M47.812 Spondylosis without myelopathy or radiculopathy, cervical region; M99.71 Connective tissue and disc stenosis of intervertebral foramina of cervical region; M48.02 Spinal stenosis, cervical region
CPT/HCPCS: 72125

== ENCOUNTER → 2021-10-09 | Outpatient (CLI) | payer OTHER ==
--- NOTE | 2021-10-09 09:24 | US ---
EXAMINATION TYPE: US abdomen comp/pelvis limited DATE OF EXAM: 10/09/2021 COMPARISON: NONE CLINICAL HISTORY: 46-year-old female N28.1 RENAL CYST, R39.198 DIFFICULTY URINATING. Pain TECHNIQUE: Multiple sonographic images of the abdomen and bladder are obtained. FINDINGS: EXAM MEASUREMENTS: Liver Length: 16.1 cm Gallbladder Wall: .2 cm CBD: .4 cm Spleen: 10.1 cm Right Kidney: 9.5 x 4.1 x 3.4 cm Left Kidney: 10.6 x 5.0 x 4.2 cm Pancreas: Obscured by bowel gas. Only a small portion of the pancreatic neck is visualized. Liver: Mild increased echogenicity. No focal lesion seen. Gallbladder: No stones seen. No abnormal distention or wall thickening. A junctional fold is demonst rated. CBD: wnl Spleen: wnl Right Kidney: No hydronephrosis or masses seen Left Kidney: Limited visualization of the lower pole due to bowel gas shadowing. No hydronephrosis o r masses within the visualized portions. Upper IVC: wnl Abd Aorta: wnl Bladder: No gross abnormality. Bilateral Jets Seen no IMPRESSION: 1. Suboptimal visualization of the pancreas and lower pole left kidney. There is mild hepatic steatos is. Otherwise, unremarkable sonographic examination of the abdomen. 2. No gross abnormality of the urine distended bladder. However, neither ureteral jet was seen during the course of the exam. Correlate with patient's BUN/creatinine.
== END | disposition home or self-care (01) ==
LOC: RADUSWWP 07:32
PROVIDERS: ATTEND Family Medicine
DX: K76.0 Fatty (change of) liver, not elsewhere classified (principal)
CPT/HCPCS: 76700; 76857

== ENCOUNTER → 2021-11-07 | Outpatient (CLI) | payer OTHER ==
--- NOTE | 2021-11-08 12:33 | MM ---
Reason for exam: screening (asymptomatic). Last mammogram was performed 1 year and 8 months ago. History: Family history of breast cancer in mother at age 30. Physical Findings: A clinical breast exam by your physician is recommended on an annual basis and results should be correlated with mammographic findings. MG 3D Screening Mammo W/Cad Bilateral CC and MLO view(s) were taken. Prior study comparison: March 10, 2020, bilateral MG 3d screening mammo w/cad. April 18, 2018, bilateral MG 3d screening mammo w/cad. There are scattered fibroglandular densities. No significant changes when compared with prior studies. ASSESSMENT: Benign, BI-RAD 2 RECOMMENDATION: Routine screening mammogram of both breasts in 1 year.
== END | disposition home or self-care (01) ==
LOC: RADMAMWWP 09:28
PROVIDERS: ATTEND Family Medicine
DX: Z12.31 Encounter for screening mammogram for malignant neoplasm of breast (principal); Z80.3 Family history of malignant neoplasm of breast
CPT/HCPCS: 77063; 77067

== ENCOUNTER 2021-12-13 18:32 | Inpatient (IN) | payer MEDICAID, OTHER ==
[2021-12-13 20:36] LABS: Appearance,Urine Clear (Clear); Bilirubin,Urine Negative (Negative); Blood,Urine Negative (Negative); Color,Urine Light Yellow; Glucose,Urine (UA) Negative (Negative); Ketones,Urine Negative (Negative); Leukocyte Esterase,Urine Negative (Negative); Nitrite,Urine Negative (Negative); Protein,Urine Negative (Negative); Specific Gravity,Urine 1.006 (1.001-1.035); Urobilinogen,Urine <2.0 mg/dL (<2.0)
[2021-12-13] MEDS ORDERED: NICOTINE 14MG/24HR PATCH TRANSDERM STA (20:46)
[2021-12-13 20:48] LABS: Amphetamine Screen,Urine Not Detected (NotDetected); Barbiturate Screen,Urine Not Detected (NotDetected); Benzodiazepines Screen,Urine Not Detected (NotDetected); Cocaine Screen,Urine Not Detected (NotDetected); Methadone Screen, Urine Not Detected (NotDetected); Opiate Screen,Urine Detected (NotDetected); Oxycodone Screen, Urine Not Detected (NotDetected); Phencyclidine Screen,Urine Not Detected (NotDetected); Tricyclic Antidepressant,Urine Detected (NotDetected); Urn Cannabinoid Scrn Not Detected (NotDetected)
[2021-12-13 21:06] LABS: Basophils # (A) 0.1 k/uL (0-0.2); Basophils % (A) 1 %; Eosinophils # (A) 0.2 k/uL (0-0.7); Eosinophils % (A) 2 %; HCT 46.5 % (34.0-46.0); HGB 15.7 gm/dL (11.4-16.0); Lymphocytes # (A) 2.1 k/uL (1.0-4.8); Lymphocytes % (A) 21 %; MCH 30.5 pg (25.0-35.0); MCHC 33.7 g/dL (31.0-37.0); MCV 90.3 fL (80.0-100.0); Mean Platelet Volume 8.2; Monocytes # (A) 0.5 k/uL (0-1.0); Monocytes % (A) 5 %; Neutrophils % (A) 71 %; Platelet Count 302 k/uL (150-450); RBC 5.15 m/uL (3.80-5.40); RDW 12.7 % (11.5-15.5); WBC 9.9 k/uL (3.8-10.6)
[2021-12-13 21:16] LABS: ALT 40 U/L (4-34); AST 39 U/L (14-36); Acetaminophen <10.0 ug/mL; African American GFR (CKD) >90 (>60 ml/min/1.73 sqM); Albumin 5.4 g/dL (3.5-5.0); Alcohol <10 mg/dL; Alkaline Phosphatase 109 U/L (38-126); Anion Gap 9 mmol/L; Blood Urea Nitrogen 11 mg/dL (7-17); Calcium 9.9 mg/dL (8.4-10.2); Carbon Dioxide 25 mmol/L (22-30); Chloride 99 mmol/L (98-107); Glucose 135 mg/dL (74-99); Non-African American GFR(CKD) >90 (>60 ml/min/1.73 sqM); Potassium 4.6 mmol/L (3.5-5.1); Salicylate <1.0 mg/dL; Sodium 133 mmol/L (137-145); Total Bilirubin 0.4 mg/dL (0.2-1.3); Total Protein 8.1 g/dL (6.3-8.2)
--- NOTE | 2021-12-13 21:22 | ED ---
Psych HPI - General Chief Complaint: Psychiatric Symptoms Stated Complaint: Mental Health Time Seen by Provider: 12/13/21 19:54 Source: patient, family Mode of arrival: ambulatory - History of Present Illness Initial Comments: Patient is a 46-year-old female who presents for psychiatric evaluation. Patient was brought in by her boyfriend who states patient has been confused for the past 2-3 days. He states patient is having trouble answering questions. Patient is a poor historian. She denies chest pain, shortness of breath, abdominal pain, burning with urination, or other concerns. Patient states she has been suicidal for a long time. No plan. No homicidal ideation. Denies visual and auditory hallucinations. Patient states that she started amitriptyline for nerve pain to 3 days ago. She thinks she is prescribed 50 mg twice a day and states she has been taking 6 a day. Patient possibly taking more Arkoma than prescribed as well as Percocet which she purchases illicitly. Denies alcohol and other drug use. Patient does of history of depression and bipolar disorder. - Related Data Home Medications Medication Instructions Recorded Confirmed Levothyroxine Sodium [Synthroid] 75 mcg PO DAILY 06/04/18 12/13/21 Albuterol Inhaler [Ventolin Hfa 2 puff INHALATION RT-QID PRN 12/13/21 12/13/21 Inhaler] Albuterol Nebulized [Ventolin 2.5 mg INHALATION RT-QID PRN 12/13/21 12/13/21 Nebulized] Amitriptyline HCl [Elavil] 50 mg PO BID 12/13/21 12/13/21 Atorvastatin Calcium [Lipitor] 20 mg PO HS 12/13/21 12/13/21 Benztropine Mesylate [Cogentin] 0.5 mg PO BID 12/13/21 12/13/21 Cholecalciferol [Vitamin D3 (125 125 mcg PO DAILY 12/13/21 12/13/21 Mcg = 5000 Iu)] Clotrimazole [Lotrimin AF] 1 applic TOPICAL BID 12/13/21 12/13/21 Gabapentin 600 mg PO TID 12/13/21 12/13/21 HYDROcodone/APAP 7.5-325MG [[place]oma 1 tab PO TID PRN 12/13/21 12/13/21 7.5-325] Ibuprofen [Motrin] 600 mg PO Q8HR PRN 12/13/21 12/13/21 Mirtazapine 7.5 mg PO HS 12/13/21 12/13/21 Omeprazole 40 mg PO AC-BID 12/13/21 12/13/21 Vortioxetine Hydrobromide 20 mg PO DAILY 12/13/21 12/13/21 [Trintellix] Previous Rx's Medication Instructions Recorded OXcarbazepine [Trileptal] 600 mg PO BID #60 tab 03/31/19 risperiDONE [RisperDAL] 2 mg PO BID #60 tab 03/31/19 Allergies Allergy/AdvReac Type Severity Reaction Status Date / Time cortisone [Cortisone] Allergy "FELT LIKE Verified 12/14/21 04:43 THROAT WAS CLOSING UP" latex Allergy Rash/Hives, Verified 12/14/21 04:43 ITCHING acetaminophen [From [facility]] AdvReac Mild hives Verified 12/14/21 06:57 hydrocodone [From [facility]] AdvReac Mild hives Verified 12/14/21 06:57 STEROIDS Allergy "FELT LIKE Uncoded 12/14/21 04:43 THROAT WAS CLOSING UP" Review of Systems ROS Statement: Those systems with pertinent positive or pertinent negative responses have been documented in the HPI. ROS Other: All systems not noted in ROS Statement are negative. Past Medical History Past Medical History: Asthma, Thyroid Disorder Additional Past Medical History / Comment(s): BACK PAIN, History of Any Multi-Drug Resistant Organisms: None Reported Past Surgical History: Hernia Repair, Tubal Ligation, Uterine Ablation Additional Past Surgical History / Comment(s): CYST ON FACE REMOVED, OVARY REMOVED, HIATAL HERNIA REPAIR Past Anesthesia/Blood Transfusion Reactions: Motion Sickness Past Psychological History: Anxiety, Bipolar, Panic Disorder Past Alcohol Use History: None Reported Past Drug Use History: Cocaine - Past Family History Mother Family Medical History: Cancer Additional Family Medical History / Comment(s): BREAST General Exam Limitations: altered mental status General appearance: alert, in no apparent distress Head exam: Present: atraumatic, normocephalic, normal inspection Neck exam: Present: normal inspection, full ROM Respiratory exam: Present: normal lung sounds bilaterally. Absent: respiratory distress, wheezes, rales, rhonchi, stridor Cardiovascular Exam: Present: regular rate, normal rhythm, normal heart sounds. Absent: systolic murmur, diastolic murmur, rubs, gallop, clicks GI/Abdominal exam: Present: soft, normal bowel sounds. Absent: distended, tenderness, guarding, rebound, rigid Neurological exam: Present: alert, oriented X3, CN II-XII intact Psychiatric exam: Present: suicidal ideation (confused ), other Skin exam: Present: warm, dry, intact, normal color. Absent: rash, diaphoretic Course Vital Signs 12/13/21 12/13/21 12/14/21 19:39 21:00 01:00 Temperature 98 F Pulse Rate 85 81 83 Respiratory 18 16 16 Rate Blood Pressure 129/95 126/76 136/81 O2 Sat by Pulse 99 97 97 Oximetry 12/14/21 04:11 Temperature 97.9 F Pulse Rate 73 Respiratory 18 Rate Blood Pressure 138/86 O2 Sat by Pulse 93 L Oximetry Medical Decision Making - Medical Decision Making This is a 46-year-old female who presents for psychiatric evaluation. Thorough history and examination were performed. Patient is well-appearing and in no apparent distress. She answers some of my questions appropriately. Patient appears confused. She attempts to leave the emergency room several times during my evaluation. Altered mental status workup initiated I also called poison control who are agreeable with my plan. Laboratory studies are relatively unremarkable. Toxicology screen positive for opiates and tricyclic antidepressants. Patient is cleared medically and can be evaluated by emergency psychiatric services. Patient was admitted for inpatient psychiatric services on 12/13/21. Dr. Espinoza is my attending. - Lab Data Result diagrams: 12/13/21 20:56 12/13/21 20:56 Lab Results 12/13/21 12/13/21 12/13/21 Range/Units 20:08 20:08 20:56 WBC 9.9 (3.8-10.6) k/uL RBC 5.15 (3.80-5.40) m/uL Hgb 15.7 (11.4-16.0) gm/dL Hct 46.5 H (34.0-46.0) % MCV 90.3 (80.0-100.0) fL MCH 30.5 (25.0-35.0) pg MCHC 33.7 (31.0-37.0) g/dL RDW 12.7 (11.5-15.5) % Plt Count 302 (150-450) k/uL MPV 8.2 Neutrophils % 71 % Lymphocytes % 21 % Monocytes % 5 % Eosinophils % 2 % Basophils % 1 % Neutrophils # 7.0 (1.3-7.7) k/uL Lymphocytes # 2.1 (1.0-4.8) k/uL Monocytes # 0.5 (0-1.0) k/uL Eosinophils # 0.2 (0-0.7) k/uL Basophils # 0.1 (0-0.2) k/uL Sodium (137-145) mmol/L Potassium (3.5-5.1) mmol/L Chloride (98-107) mmol/L Carbon Dioxide (22-30) mmol/L Anion Gap mmol/L BUN (7-17) mg/dL Creatinine (0.52-1.04) mg/dL Est GFR (CKD-EPI)AfAm (>60 ml/min/1.73 sqM) Est GFR (CKD-EPI)NonAf (>60 ml/min/1.73 sqM) Glucose (74-99) mg/dL Calcium (8.4-10.2) mg/dL Magnesium (1.6-2.3) mg/dL Total Bilirubin (0.2-1.3) mg/dL AST (14-36) U/L ALT (4-34) U/L Alkaline Phosphatase (38-126) U/L Ammonia (<30) umol/L Troponin I (0.000-0.034) ng/mL Total Protein (6.3-8.2) g/dL Albumin (3.5-5.0) g/dL TSH (0.465-4.680) mIU/L Urine Color Light Yellow Urine Appearance Clear (Clear) Urine pH 7.0 (5.0-8.0) Ur Specific [place] 1.006 (1.001-1.035) Urine Protein Negative (Negative) Urine Glucose (UA) Negative (Negative) Urine Ketones Negative (Negative) Urine Blood Negative (Negative) Urine Nitrite Negative (Negative) Urine Bilirubin Negative (Negative) Urine Urobilinogen <2.0 (<2.0) mg/dL Ur Leukocyte Esterase Negative (Negative) Salicylates mg/dL Urine Opiates Screen Detected H (NotDetected) Ur Oxycodone Screen Not Detected (NotDetected) Urine Methadone Screen Not Detected (NotDetected) Ur Propoxyphene Screen Not Detected (NotDetected) Acetaminophen ug/mL Ur Barbiturates Screen Not Detected (NotDetected) U Tricyclic Antidepress Detected H (NotDetected) Ur Phencyclidine Scrn Not Detected (NotDetected) Ur Amphetamines Screen Not Detected (NotDetected) U Methamphetamines Scrn Not Detected (NotDetected) U Benzodiazepines Scrn Not Detected (NotDetected) Urine Cocaine Screen Not Detected (NotDetected) U Marijuana (THC) Screen Not Detected (NotDetected) Serum Alcohol mg/dL Coronavirus (PCR) (Not Detectd) 12/13/21 12/13/21 12/13/21 Range/Units 20:56 20:56 20:56 WBC (3.8-10.6) k/uL RBC (3.80-5.40) m/uL Hgb (11.4-16.0) gm/dL Hct (34.0-46.0) % MCV (80.0-100.0) fL MCH (25.0-35.0) pg MCHC (31.0-37.0) g/dL RDW (11.5-15.5) % Plt Count (150-450) k/uL MPV Neutrophils % % Lymphocytes % % Monocytes % % Eosinophils % % Basophils % % Neutrophils # (1.3-7.7) k/uL Lymphocytes # (1.0-4.8) k/uL Monocytes # (0-1.0) k/uL Eosinophils # (0-0.7) k/uL Basophils # (0-0.2) k/uL Sodium 133 L (137-145) mmol/L Potassium 4.6 (3.5-5.1) mmol/L Chloride 99 (98-107) mmol/L Carbon Dioxide 25 (22-30) mmol/L Anion Gap 9 mmol/L BUN 11 (7-17) mg/dL Creatinine 0.61 (0.52-1.04) mg/dL Est GFR (CKD-EPI)AfAm >90 (>60 ml/min/1.73 sqM) Est GFR (CKD-EPI)NonAf >90 (>60 ml/min/1.73 sqM) Glucose 135 H (74-99) mg/dL Calcium 9.9 (8.4-10.2) mg/dL Magnesium 2.0 (1.6-2.3) mg/dL Total Bilirubin 0.4 (0.2-1.3) mg/dL AST 39 H (14-36) U/L ALT 40 H (4-34) U/L Alkaline Phosphatase 109 (38-126) U/L Ammonia 14 (<30) umol/L Troponin I <0.012 (0.000-0.034) ng/mL Total Protein 8.1 (6.3-8.2) g/dL Albumin 5.4 H (3.5-5.0) g/dL TSH 0.762 (0.465-4.680) mIU/L Urine Color Urine Appearance (Clear) Urine pH (5.0-8.0) Ur Specific [place] (1.001-1.035) Urine Protein (Negative) Urine Glucose (UA) (Negative) Urine Ketones (Negative) Urine Blood (Negative) Urine Nitrite (Negative) Urine Bilirubin (Negative) Urine Urobilinogen (<2.0) mg/dL Ur Leukocyte Esterase (Negative) Salicylates <1.0 mg/dL Urine Opiates Screen (NotDetected) Ur Oxycodone Screen (NotDetected) Urine Methadone Screen (NotDetected) Ur Propoxyphene Screen (NotDetected) Acetaminophen <10.0 ug/mL Ur Barbiturates Screen (NotDetected) U Tricyclic Antidepress (NotDetected) Ur Phencyclidine Scrn (NotDetected) Ur Amphetamines Screen (NotDetected) U Methamphetamines Scrn (NotDetected) U Benzodiazepines Scrn (NotDetected) Urine Cocaine Screen (NotDetected) U Marijuana (THC) Screen (NotDetected) Serum Alcohol <10 mg/dL Coronavirus (PCR) (Not Detectd) 12/14/21 Range/Units 01:08 WBC (3.8-10.6) k/uL RBC (3.80-5.40) m/uL Hgb (11.4-16.0) gm/dL Hct (34.0-46.0) % MCV (80.0-100.0) fL MCH (25.0-35.0) pg MCHC (31.0-37.0) g/dL RDW (11.5-15.5) % Plt Count (150-450) k/uL MPV Neutrophils % % Lymphocytes % % Monocytes % % Eosinophils % % Basophils % % Neutrophils # (1.3-7.7) k/uL Lymphocytes # (1.0-4.8) k/uL Monocytes # (0-1.0) k/uL Eosinophils # (0-0.7) k/uL Basophils # (0-0.2) k/uL Sodium (137-145) mmol/L Potassium (3.5-5.1) mmol/L Chloride (98-107) mmol/L Carbon Dioxide (22-30) mmol/L Anion Gap mmol/L BUN (7-17) mg/dL Creatinine (0.52-1.04) mg/dL Est GFR (CKD-EPI)AfAm (>60 ml/min/1.73 sqM) Est GFR (CKD-EPI)NonAf (>60 ml/min/1.73 sqM) Glucose (74-99) mg/dL Calcium (8.4-10.2) mg/dL Magnesium (1.6-2.3) mg/dL Total Bilirubin (0.2-1.3) mg/dL AST (14-36) U/L ALT (4-34) U/L Alkaline Phosphatase (38-126) U/L Ammonia (<30) umol/L Troponin I (0.000-0.034) ng/mL Total Protein (6.3-8.2) g/dL Albumin (3.5-5.0) g/dL TSH (0.465-4.680) mIU/L Urine Color Urine Appearance (Clear) Urine pH (5.0-8.0) Ur Specific [place] (1.001-1.035) Urine Protein (Negative) Urine Glucose (UA) (Negative) Urine Ketones (Negative) Urine Blood (Negative) Urine Nitrite (Negative) Urine Bilirubin (Negative) Urine Urobilinogen (<2.0) mg/dL Ur Leukocyte Esterase (Negative) Salicylates mg/dL Urine Opiates Screen (NotDetected) Ur Oxycodone Screen (NotDetected) Urine Methadone Screen (NotDetected) Ur Propoxyphene Screen (NotDetected) Acetaminophen ug/mL Ur Barbiturates Screen (NotDetected) U Tricyclic Antidepress (NotDetected) Ur Phencyclidine Scrn (NotDetected) Ur Amphetamines Screen (NotDetected) U Methamphetamines Scrn (NotDetected) U Benzodiazepines Scrn (NotDetected) Urine Cocaine Screen (NotDetected) U Marijuana (THC) Screen (NotDetected) Serum Alcohol mg/dL Coronavirus (PCR) Not Detected (Not Detectd) - EKG Data EKG Comments: EKG taken at 20:33. Sinus rhythm Ventricular 87 MT interval 149 QRS duration 81 QTC 440 Disposition Clinical Impression: Suicidal ideation, Bipolar disorder, Depression, Narcotic abuse, Confusion, At risk for elopement from emergency department Disposition: ADMITTED IP TO THIS HOSP Condition: Good
[2021-12-14] MEDS ORDERED: ALBUTEROL INHALER 60 PUFF/8 GM INHALER (MHU) INHALATION PRN (03:42)
[2021-12-14] MEDS ORDERED: MAGNESIUM HYDROXIDE 2,400 MG/10 ML CUP PO PRN (03:45)
[2021-12-14] MEDS ORDERED: MAG HYDROX/AL HYDROX/SIMETH 30 ML CUP PO PRN (03:45)
[2021-12-14] MEDS ORDERED: HALOPERIDOL LACTATE 5 MG/ML 1 ML VIAL IM PRN (03:45)
[2021-12-14] MEDS ORDERED: haloperidoL 5 MG TAB PO PRN (03:48)
[2021-12-14] MEDS ORDERED: HYDROcodone/APAP 5-325MG 1 EACH TAB PO PRN (03:50)
[2021-12-14] MEDS: LEVOTHYROXINE 75 MCG TAB PO SCH (07:33)
[2021-12-14] MEDS: PANTOPRAZOLE 40 MG TABLET PO SCH ×2 (07:58→17:31)
[2021-12-14] MEDS: CHOLECALCIFEROL 125 MCG (5000 IU) TABLET PO SCH (07:58)
[2021-12-14] MEDS: CLOTRIMAZOLE 1% CREAM 30 GM TUBE TOPICAL SCH ×3 (07:58→21:00)
[2021-12-14] MEDS: risperiDONE 2 MG TAB PO SCH ×2 (07:59→20:57)
[2021-12-14] MEDS: NICOTINE 14MG/24HR PATCH TRANSDERM SCH ×2 (08:01→13:44)
[2021-12-14] MEDS ORDERED: OXcarbazepine 300 MG TAB PO SCH (09:00)
[2021-12-14] MEDS ORDERED: GABAPENTIN 300 MG CAP PO SCH (09:00)
[2021-12-14] MEDS ORDERED: NICOTINE GUM (POLACRILEX) 2 MG GUM BUCCAL PRN (10:06)
--- NOTE | 2021-12-14 12:03 | P.HP ---
Psychiatric H&P - . H&P Date: 12/14/21 History & Physical: Allergies Allergy/AdvReac Type Severity Reaction Status Date / Time cortisone [Cortisone] Allergy "FELT LIKE Verified 12/14/21 04:43 THROAT WAS CLOSING UP" latex Allergy Rash/Hives, Verified 12/14/21 04:43 ITCHING acetaminophen [From [facility]] AdvReac Mild hives Verified 12/14/21 06:57 hydrocodone [From [facility]] AdvReac Mild hives Verified 12/14/21 06:57 STEROIDS Allergy "FELT LIKE Uncoded 12/14/21 04:43 THROAT WAS CLOSING UP" Vital Signs Temp 97.3 F L 12/14/21 04:32 Pulse 89 12/14/21 04:32 Resp 22 12/14/21 04:32 BP 108/69 12/14/21 04:32 Pulse Ox 97 12/14/21 04:32 FiO2 Intake & Output 12/13/21 12/14/21 12/14/21 18:59 06:59 18:59 Weight 83.461 kg Laboratory Last Values WBC 9.9 k/uL (3.8-10.6) 12/13/21 20:56 RBC 5.15 m/uL (3.80-5.40) 12/13/21 20:56 Hgb 15.7 gm/dL (11.4-16.0) 12/13/21 20:56 Hct 46.5 % (34.0-46.0) H 12/13/21 20:56 MCV 90.3 fL (80.0-100.0) 12/13/21 20:56 MCH 30.5 pg (25.0-35.0) 12/13/21 20:56 MCHC 33.7 g/dL (31.0-37.0) 12/13/21 20:56 RDW 12.7 % (11.5-15.5) 12/13/21 20:56 Plt Count 302 k/uL (150-450) 12/13/21 20:56 MPV 8.2 12/13/21 20:56 Neutrophils % 71 % 12/13/21 20:56 Lymphocytes % 21 % 12/13/21 20:56 Monocytes % 5 % 12/13/21 20:56 Eosinophils % 2 % 12/13/21 20:56 Basophils % 1 % 12/13/21 20:56 Neutrophils # 7.0 k/uL (1.3-7.7) 12/13/21 20:56 Lymphocytes # 2.1 k/uL (1.0-4.8) 12/13/21 20:56 Monocytes # 0.5 k/uL (0-1.0) 12/13/21 20:56 Eosinophils # 0.2 k/uL (0-0.7) 12/13/21 20:56 Basophils # 0.1 k/uL (0-0.2) 12/13/21 20:56 Sodium 133 mmol/L (137-145) L 12/13/21 20:56 Potassium 4.6 mmol/L (3.5-5.1) 12/13/21 20:56 Chloride 99 mmol/L (98-107) 12/13/21 20:56 Carbon Dioxide 25 mmol/L (22-30) 12/13/21 20:56 Anion Gap 9 mmol/L 12/13/21 20:56 BUN 11 mg/dL (7-17) 12/13/21 20:56 Creatinine 0.61 mg/dL (0.52-1.04) 12/13/21 20:56 Est GFR (CKD-EPI)AfAm >90 (>60 ml/min/1.73 sqM) 12/13/21 20:56 Est GFR (CKD-EPI)NonAf >90 (>60 ml/min/1.73 sqM) 12/13/21 20:56 Glucose 135 mg/dL (74-99) H 12/13/21 20:56 Calcium 9.9 mg/dL (8.4-10.2) 12/13/21 20:56 Magnesium 2.0 mg/dL (1.6-2.3) 12/13/21 20:56 Total Bilirubin 0.4 mg/dL (0.2-1.3) 12/13/21 20:56 AST 39 U/L (14-36) H 12/13/21 20:56 ALT 40 U/L (4-34) H 12/13/21 20:56 Alkaline Phosphatase 109 U/L (38-126) 12/13/21 20:56 Ammonia 14 umol/L (<30) 12/13/21 20:56 Troponin I <0.012 ng/mL (0.000-0.034) 12/13/21 20:56 Total Protein 8.1 g/dL (6.3-8.2) 12/13/21 20:56 Albumin 5.4 g/dL (3.5-5.0) H 12/13/21 20:56 TSH 0.762 mIU/L (0.465-4.680) 12/13/21 20:56 Urine Color Light Yellow 12/13/21 20:08 Urine Appearance Clear (Clear) 12/13/21 20:08 Urine pH 7.0 (5.0-8.0) 12/13/21 20:08 Ur Specific [place] 1.006 (1.001-1.035) 12/13/21 20:08 Urine Protein Negative (Negative) 12/13/21 20:08 Urine Glucose (UA) Negative (Negative) 12/13/21 20:08 Urine Ketones Negative (Negative) 12/13/21 20:08 Urine Blood Negative (Negative) 12/13/21 20:08 Urine Nitrite Negative (Negative) 12/13/21 20:08 Urine Bilirubin Negative (Negative) 12/13/21 20:08 Urine Urobilinogen <2.0 mg/dL (<2.0) 12/13/21 20:08 Ur Leukocyte Esterase Negative (Negative) 12/13/21 20:08 Salicylates <1.0 mg/dL 12/13/21 20:56 Urine Opiates Screen Detected (NotDetected) H 12/13/21 20:08 Ur Oxycodone Screen Not Detected (NotDetected) 12/13/21 20:08 Urine Methadone Screen Not Detected (NotDetected) 12/13/21 20:08 Ur Propoxyphene Screen Not Detected (NotDetected) 12/13/21 20:08 Acetaminophen <10.0 ug/mL 12/13/21 20:56 Ur Barbiturates Screen Not Detected (NotDetected) 12/13/21 20:08 U Tricyclic Antidepress Detected (NotDetected) H 12/13/21 20:08 Ur Phencyclidine Scrn Not Detected (NotDetected) 12/13/21 20:08 Ur Amphetamines Screen Not Detected (NotDetected) 12/13/21 20:08 U Methamphetamines Scrn Not Detected (NotDetected) 12/13/21 20:08 U Benzodiazepines Scrn Not Detected (NotDetected) 12/13/21 20:08 Urine Cocaine Screen Not Detected (NotDetected) 12/13/21 20:08 U Marijuana (THC) Screen Not Detected (NotDetected) 12/13/21 20:08 Serum Alcohol <10 mg/dL 12/13/21 20:56 Coronavirus (PCR) Not Detected (Not Detectd) 12/14/21 01:08 12/14/21 12:02 IDENTIFYING DATA: Patient is a single, unemployed, on disability, 46-year-old female with significant history of bipolar disorder presented to the hospital for increased confusion. HPI: Patient presented to the hospital on 12/14/2021, brought into the hospital by her for increased confusion over the past few days. Reportedly, the patient has been inconsistent in taking her medications and has had significant episodes of confusion including attempting to purchase sound which is from [employer] without any money and attempting to elope from the ED on multiple occasions. She was subsequently petitioned and certified and psychiatric unit. Upon evaluation on the psychiatric unit, the patient is currently alert and oriented in all spheres. She does report that she was overtaking her amitrip tyline which she was recently restarted on because she felt significant pain in her arm. She vehemently denies that there was any intentions to take her life. She reports that she was taking the medication or to address her pain. Furthermore, there is concern that the patient may have also overtook her narcotic medications as well. The patient is currently vehemently denying any significant symptoms of depression at this time. She reports no anhedonia, hopelessness, helplessness, change in appetite, change in sleep, or suicidal or homicidal ideation, intention, and/or plan. She does report prior suicide attempts but states last episode was >5 years ago. She does report ongoing stressors including her daughter being in rehab and financial stressors. Prior to this admission, recently started on amitriptyline by her outpatient psychiatrist. PAST PSYCHIATRIC HISTORY: Patient states that she has been previously diagnosed with bipolar disorder. Patient reports previous trials with various medications but is unable to recall. She is currently on a regimen of amitriptyline, risperdal, and trileptal. Patient was last hospitalized in 2019. She is open with [facility]. Patient reports multiple attempts at suicide in the past. PMH: Past Medical History: Asthma, Thyroid Disorder Additional Past Medical History / Comment(s): BACK PAIN, History of Any Multi-Drug Resistant Organisms: None Reported Past Surgical History: Hernia Repair, Tubal Ligation, Uterine Ablation Additional Past Surgical History / Comment(s): CYST ON FACE REMOVED, OVARY REMOVED, HIATAL HERNIA REPAIR Past Anesthesia/Blood Transfusion Reactions: Motion Sickness Past Psychological History: Anxiety, Bipolar, Panic Disorder Past Alcohol Use History: None Reported Past Drug Use History: Cocaine ALLERGIES: cortisone, latex, acetaminophen, hydrocodone, Steroids CHEMICAL DEPENDENCY HISTORY: 1.5 PPD tobacco. Patient denies any ETOH, Marijuana, or illicit drugs. The patient has previously abused crack cocaine however states that she has been sober since 2019. FAMILY PSYCHIATRIC/SUBSTANCE USE HISTORY: Mom and daughter - bipolar disorder SOCIAL HISTORY: Patient was born and raised in [place], [place]. She has 2 daughters. The patient receives disability. She reports no anglican affiliation. She currently denies any legal issues. MENTAL STATUS EXAM: General Appearance: Patient appears to be stated age is alert, directable, and attempts to cooperate. Patient appears to have slightly disheveled hygiene and grooming. Behavior: Patient is seated without any agitated behavior. Normal psychomotor activity. Appropriate eye contact. Speech: Patient's speech is fluent and nonpressured. Mood/Affect: Patient reports their mood is "a little stressed," affect is euthymic with appropriate range. Suicidality/Homicidality: Patient denies any suicidal or homicidal ideation, intention, and/or plan. Perceptions: Patient denies any visual hallucinations and denies any auditory hallucinations Though content/process: There is no evidence of any delusional thought content and thought process is linear and goal-directed. Memory and concentration: AOX3, grossly intact for the purposes of this session. Can spell "WORLD" backwards Judgment and insight: Improved STRENGTHS/WEAKNESSES: Strength is that the patient has a supportive partner. Weakness is that the patient has numerous medical issues as well as life stressors. She also has multiple prior attempts at suicide. INTELLECT: average IMPRESSIONS: Bipolar 1 disorder Cocaine use disorder, in remission Tobacco use disorder Hyponatremia PLAN: -Patient is admitted under involuntary however converted to voluntary status to MHU for stabilization of psychiatric symptoms and safety. Patient signed adult voluntary form and medication consent and is placed in patient's chart. -Medications : We will decrease the patient's Trileptal to 300 mg by mouth twice a day due to hyponatremia Continue Risperdal 2 mg by mouth twice a day for Increase gabapentin to 800 mg by mouth 3 times a day for off label use for anxiety as well as to address neuropathic pain -Ativan and Haldol PRN for agitation/aggression -Patient was counselled on substance abuse and desired to cut back on use -Patient was informed of the risks, benefits and side effects of the medication and patient verbally consented to taking the medications. Patient signed med consent form and was placed in chart. -Internal Medicine consult to perform medical evaluation and physical. -NRT - nicotine patch and Nicorette gum -SW on board for discharge planning. Encourage patient to participate in groups to work on coping skills. 12/14/21 12:03
[2021-12-14] MEDS: HYDROcodone/APAP 5-325MG 1 EACH TAB PO PRN ×2 (13:11→20:59)
[2021-12-14] MEDS: GABAPENTIN 400 MG CAP PO SCH ×2 (16:13→20:57)
[2021-12-14] MEDS: ACETAMINOPHEN TAB 325 MG TAB PO PRN (17:31)
--- NOTE | 2021-12-14 17:49 | P.CONS ---
History of Present Illness - History of Present Illness This is a pleasant 46 years old female with past medical history of chronic neck pain on gabapentin, Vicodin function under the breast on clotrimazole, hypothyroidism, depression and bipolar disorder and other psychiatric illnesses, she is on Trileptal patient denies history of seizure. She status post uterine ablation and removal of the ovary Patient seen and examined by bedside nurse in the room. Patient denies chest pain or dyspnea. No headache weakness or dizziness. No numbness. She compared from constipation, no vomiting, no urinary complaints. No fever. Labs including CBC, BMP and liver enzymes are unremarkable except for mild hyponatremia at 133, mildly elevated AST 39 and ALT 40. TSH is normal 0.7. Urinalysis is not suspicious of infection. Urine drug screen is positive for tricyclic antidepressant and opiates. Salicylate less than 1 and acetaminophen is less than 10 and alcohol level less than 10. Coronary breast not detected. EKG showing normal sinus rhythm at [address]-T changes and QTC 440. Review of Systems CONSTITUTIONAL: No fever, no malaise, no fatigue. HEENT: No recent visual problems or hearing problems. Denied any sore throat. CARDIOVASCULAR: No orthopnea, PND, no palpitations, no syncope. PULMONARY: No shortness of breath, no cough, no hemoptysis. GASTROINTESTINAL: No diarrhea, no nausea, no vomiting, no abdominal pain. Normoactive bowel sounds. NEUROLOGICAL: No headaches, no weakness, no numbness. HEMATOLOGICAL: Denies any bleeding or petechiae. GENITOURINARY: Denies any burning micturition, frequency, or urgency. MUSCULOSKELETAL/RHEUMATOLOGICAL: Denies any joint pain, swelling, or any muscle pain. ENDOCRINE: Denies any polyuria or polydipsia. Past Medical History Past Medical History: Asthma, Thyroid Disorder Additional Past Medical History / Comment(s): BACK PAIN, History of Any Multi-Drug Resistant Organisms: None Reported Past Surgical History: Hernia Repair, Tubal Ligation, Uterine Ablation Additional Past Surgical History / Comment(s): CYST ON FACE REMOVED, OVARY REMOVED, HIATAL HERNIA REPAIR Past Anesthesia/Blood Transfusion Reactions: No Reported Reaction, Motion Sickness Past Psychological History: Anxiety, Bipolar, Panic Disorder Smoking Status: Current every day smoker Past Alcohol Use History: None Reported Additional Past Alcohol Use History / Comment(s): QUIT SMOKING 2014 Past Drug Use History: Cocaine - Past Family History Mother Family Medical History: Cancer Additional Family Medical History / Comment(s): BREAST Medications and Allergies Home Medications Medication Instructions Recorded Confirmed Type Levothyroxine Sodium [Synthroid] 75 mcg PO DAILY 06/04/18 12/13/21 History OXcarbazepine [Trileptal] 600 mg PO BID #60 tab 03/31/19 12/13/21 Rx risperiDONE [RisperDAL] 2 mg PO BID #60 tab 03/31/19 12/13/21 Rx Albuterol Inhaler [Ventolin Hfa 2 puff INHALATION RT-QID PRN 12/13/21 12/13/21 History Inhaler] Albuterol Nebulized [Ventolin 2.5 mg INHALATION RT-QID PRN 12/13/21 12/13/21 History Nebulized] Amitriptyline HCl [Elavil] 50 mg PO BID 12/13/21 12/13/21 History Atorvastatin Calcium [Lipitor] 20 mg PO HS 12/13/21 12/13/21 History Benztropine Mesylate [Cogentin] 0.5 mg PO BID 12/13/21 12/13/21 History Cholecalciferol [Vitamin D3 (125 125 mcg PO DAILY 12/13/21 12/13/21 History Mcg = 5000 Iu)] Clotrimazole [Lotrimin AF] 1 applic TOPICAL BID 12/13/21 12/13/21 History Gabapentin 600 mg PO TID 12/13/21 12/13/21 History HYDROcodone/APAP 7.5-325MG [[place] 1 tab PO TID PRN 12/13/21 12/13/21 History 7.5-325] Ibuprofen [Motrin] 600 mg PO Q8HR PRN 12/13/21 12/13/21 History Mirtazapine 7.5 mg PO HS 12/13/21 12/13/21 History Omeprazole 40 mg PO AC-BID 12/13/21 12/13/21 History Vortioxetine Hydrobromide 20 mg PO DAILY 12/13/21 12/13/21 History [Trintellix] Allergies Allergy/AdvReac Type Severity Reaction Status Date / Time cortisone [Cortisone] Allergy "FELT LIKE Verified 12/14/21 04:43 THROAT WAS CLOSING UP" latex Allergy Rash/Hives, Verified 12/14/21 04:43 ITCHING acetaminophen [From [place]] AdvReac Mild hives Verified 12/14/21 06:57 hydrocodone [From [place]] AdvReac Mild hives Verified 12/14/21 06:57 STEROIDS Allergy "FELT LIKE Uncoded 12/14/21 04:43 THROAT WAS CLOSING UP" Physical Exam Vitals: Vital Signs Temp Pulse Pulse Resp BP BP Pulse Ox 12/14/21 04:32 97.3 F L 89 22 108/69 97 12/14/21 04:11 97.9 F 73 18 138/86 93 L 12/14/21 01:00 83 16 136/81 97 12/13/21 21:00 81 16 126/76 97 12/13/21 19:39 98 F 85 18 129/95 99 GENERAL: The patient is alert and oriented x3, not in any acute distress. Well developed, well nourished. HEENT: Pupils are round and equally reacting to light. EOMI. No scleral icterus. No conjunctival pallor. Normocephalic, atraumatic. No pharyngeal erythema. No thyromegaly. CARDIOVASCULAR: S1 and S2 present. No murmurs, rubs, or gallops. PULMONARY: Chest is clear to auscultation, no wheezing or crackles. ABDOMEN: Soft, nontender, nondistended, normoactive bowel sounds. No palpable organomegaly. MUSCULOSKELETAL: No joint swelling or deformity. EXTREMITIES: No cyanosis, clubbing, or pedal edema. NEUROLOGICAL: Gross neurological examination did not reveal any focal deficits. SKIN: No rashes. No petechiae Results CBC & Chem 7: 12/13/21 20:56 12/13/21 20:56 Labs: Abnormal Lab Results - Last 24 Hours (Table) 12/13/21 12/13/21 12/13/21 Range/Units 20:08 20:56 20:56 Hct 46.5 H (34.0-46.0) % Sodium 133 L (137-145) mmol/L Glucose 135 H (74-99) mg/dL AST 39 H (14-36) U/L ALT 40 H (4-34) U/L Albumin 5.4 H (3.5-5.0) g/dL Urine Opiates Screen Detected H (NotDetected) U Tricyclic Antidepress Detected H (NotDetected) Assessment and Plan Assessment: -Depression, bipolar and other cephalic illnesses, management as per psych primary team psych -Chronic neck pain and back pain, continue with gabapentin -Recent History of fungal infection under the breast, on clotrimazole -Hypothyroidism: On levothyroxine -Constipation: Start Colace -Nicotine dependence, recommend patient to quit smoking -History of substance abuse including cocaine, patient is counseled -Obesity with BMI of 31.6 Patient is low risk for DVT she is mobile We Recommend patient to follow-up with PCP in one week after discharge, Patient was instructed with the same Thank you for consulting us
[2021-12-14] MEDS: OXcarbazepine 300 MG TAB PO SCH (20:57)
[2021-12-14] MEDS ORDERED: ATORVASTATIN 20 MG TAB PO SCH (21:00)
[2021-12-15] MEDS: ACETAMINOPHEN TAB 325 MG TAB PO PRN (03:44)
[2021-12-15] MEDS: LEVOTHYROXINE 75 MCG TAB PO SCH (06:59)
[2021-12-15 07:00] VITALS: BP 130/75; PULSE 84; RESP 16; TEMP 97.9
[2021-12-15] MEDS: CHOLECALCIFEROL 125 MCG (5000 IU) TABLET PO SCH (08:10)
[2021-12-15] MEDS: GABAPENTIN 400 MG CAP PO SCH (08:10)
[2021-12-15] MEDS: NICOTINE 14MG/24HR PATCH TRANSDERM SCH (08:10)
[2021-12-15] MEDS: PANTOPRAZOLE 40 MG TABLET PO SCH (08:10)
[2021-12-15] MEDS: OXcarbazepine 300 MG TAB PO SCH (08:11)
[2021-12-15] MEDS: risperiDONE 2 MG TAB PO SCH (08:11)
[2021-12-15] MEDS: HYDROcodone/APAP 5-325MG 1 EACH TAB PO PRN (08:12)
[2021-12-15] MEDS: CLOTRIMAZOLE 1% CREAM 30 GM TUBE TOPICAL SCH (08:14)
[2021-12-15 09:30] LABS: Chol/HDL Ratio 3.78 Ratio
--- NOTE | 2021-12-15 11:30 | P.DS ---
Providers Date of admission: 12/14/21 03:41 Expected date of discharge: 12/15/21 Attending physician: Salvador Mattson MD Consults: 12/14/21 07:55 Consult Physician Routine Consulting Provider: Helene Doran Consult Reason/Comments: H and P Do you want consulting provider notified?: Yes Primary care physician: Linda Titus - Discharge Diagnosis(es) (1) Bipolar II disorder Status: Acute Priority: High (2) Cocaine use disorder, severe, in sustained remission Status: Chronic Priority: Medium (3) Tobacco use disorder Status: Chronic Priority: Medium (4) Hyponatremia Status: Chronic Priority: Medium Hospital Course: Admission HPI: Patient is a single, unemployed, on disability, 46-year-old female with significant history of bipolar disorder presented to the hospital for increased confusion. Patient presented to the hospital on 12/14/2021, brought into the hospital by her for increased confusion over the past few days. Reportedly, the patient has been inconsistent in taking her medications and has had significant episodes of confusion including attempting to purchase sound which is from [employer] without any money and attempting to elope from the ED on multiple occasions. She was subsequently petitioned and certified and psychiatric unit. Upon evaluation on the psychiatric unit, the patient is currently alert and oriented in all spheres. She does report that she was overtaking her amitriptyline which she was recently restarted on because she felt significant pain in her arm. She vehemently denies that there was any intentions to take her life. She reports that she was taking the medication or to address her pain. Furthermore, there is concern that the patient may have also overtook her narcotic medications as well. The patient is currently vehemently denying any significant symptoms of depression at this time. She reports no anhedonia, hopelessness, helplessness, change in appetite, change in sleep, or suicidal or homicidal ideation, intention, and/or plan. She does report prior suicide attempts but states last episode was >5 years ago. She does report ongoing stressors including her daughter being in rehab and financial stressors. Prior to this admission, recently started on amitriptyline by her outpatient psychiatrist. Patient states that she has been previously diagnosed with bipolar disorder. Patient reports previous trials with various medications but is unable to recall. She is currently on a regimen of amitriptyline, risperdal, and trileptal. Patient was last hospitalized in 2019. She is open with [facility]. Patient reports multiple attempts at suicide in the past. Hospital course: Upon admission to the unit patient was initially acting as calm, cooperative, and alert and oriented in all spheres. The only psychiatric pathology that the patient was endorsing was increased anxiety in regards to her pain control. She was agreeable to having her medications adjusted. The patient's gabapentin was increased to address her neuropathic pain and for off label use for anxiety. Furthermore, the patient's Trileptal was decreased due to concerns of hyponatremia which may have contributed to her presentation of disorientation. The patient tolerated these medication changes well. She was also continued on her Risperdal. On the day of discharge, the patient is not reporting any suicidal or homicidal ideation, intention, or plan. She currently reports no auditory or visual hallucinations. She denies any paranoia or other delusions. She expresses a strong side to live for herself and for her family. He denies any side effects of her medications and has been adherent. Patient was counseled at length on importance medication hearings and appropriate outpatient follow-up. She was vehemently counseled on the importance of not overtaking her medications. She was reminded and acknowledged of the risks of not following her prescription. Aside from bodily harm, the patient also risks having the privilege of controlled substances taken away from her. As the patient along her back criteria for continued inpatient psychiatric hospitalization, she was subsequently discharge. Mental status exam: General Appearance: Patient appears to be stated age is alert, pleasant, and oncology coordinator perative. Patient is in no acute distress and has fair hygiene and grooming Behavior: Patient is calmly seated without any agitated behavior. Speech: Patient's speech is fluent and nonpressured. Mood/Affect: Patient reports their mood is "feeling good", affect is congruent and euthymic. Suicidality/Homicidality: Patient denies having any suicidal or homicidal ideation intent or plan. Perceptions: Patient denies any auditory or visual hallucinations. Though content/process: There is no evidence of any delusional thought content and thought process is linear and goal-directed. Future oriented. Memory and concentration: AOX3, grossly intact for the purposes of this session. Can spell "WORLD" backwards correctly. Judgment and insight: Improved with guarded prognosis Vital Signs Temp 97.9 F 12/15/21 06:45 Pulse 84 12/15/21 06:45 Resp 16 12/15/21 06:45 BP 130/75 12/15/21 06:45 Pulse Ox 97 12/14/21 04:32 FiO2 Laboratory Results WBC 9.9 k/uL (3.8-10.6) 12/13/21 20:56 RBC 5.15 m/uL (3.80-5.40) 12/13/21 20:56 Hgb 15.7 gm/dL (11.4-16.0) 12/13/21 20:56 Hct 46.5 % (34.0-46.0) H 12/13/21 20:56 MCV 90.3 fL (80.0-100.0) 12/13/21 20:56 MCH 30.5 pg (25.0-35.0) 12/13/21 20:56 MCHC 33.7 g/dL (31.0-37.0) 12/13/21 20:56 RDW 12.7 % (11.5-15.5) 12/13/21 20:56 Plt Count 302 k/uL (150-450) 12/13/21 20:56 MPV 8.2 12/13/21 20:56 Neutrophils % 71 % 12/13/21 20:56 Lymphocytes % 21 % 12/13/21 20:56 Monocytes % 5 % 12/13/21 20:56 Eosinophils % 2 % 12/13/21 20:56 Basophils % 1 % 12/13/21 20:56 Neutrophils # 7.0 k/uL (1.3-7.7) 12/13/21 20:56 Lymphocytes # 2.1 k/uL (1.0-4.8) 12/13/21 20:56 Monocytes # 0.5 k/uL (0-1.0) 12/13/21 20:56 Eosinophils # 0.2 k/uL (0-0.7) 12/13/21 20:56 Basophils # 0.1 k/uL (0-0.2) 12/13/21 20:56 Sodium 133 mmol/L (137-145) L 12/13/21 20:56 Potassium 4.6 mmol/L (3.5-5.1) 12/13/21 20:56 Chloride 99 mmol/L (98-107) 12/13/21 20:56 Carbon Dioxide 25 mmol/L (22-30) 12/13/21 20:56 Anion Gap 9 mmol/L 12/13/21 20:56 BUN 11 mg/dL (7-17) 12/13/21 20:56 Creatinine 0.61 mg/dL (0.52-1.04) 12/13/21 20:56 Est GFR (CKD-EPI)AfAm >90 (>60 ml/min/1.73 sqM) 12/13/21 20:56 Est GFR (CKD-EPI)NonAf >90 (>60 ml/min/1.73 sqM) 12/13/21 20:56 Glucose 135 mg/dL (74-99) H 12/13/21 20:[address] Glu mg/dL 118 12/14/21 09:05 Hemoglobin A1c 5.7 % (0.0-6.0) 12/14/21 09:05 Calcium 9.9 mg/dL (8.4-10.2) 12/13/21 20:56 Magnesium 2.0 mg/dL (1.6-2.3) 12/13/21 20:56 Total Bilirubin 0.4 mg/dL (0.2-1.3) 12/13/21 20:56 AST 39 U/L (14-36) H 12/13/21 20:56 ALT 40 U/L (4-34) H 12/13/21 20:56 Alkaline Phosphatase 109 U/L (38-126) 12/13/21 20:56 Ammonia 14 umol/L (<30) 12/13/21 20:56 Troponin I <0.012 ng/mL (0.000-0.034) 12/13/21 20:56 Total Protein 8.1 g/dL (6.3-8.2) 12/13/21 20:56 Albumin 5.4 g/dL (3.5-5.0) H 12/13/21 20:56 Triglycerides 110.00 mg/dL (0.00-149.00) 12/13/21 20:56 Cholesterol 189.00 mg/dL (0.00-200.00) 12/13/21 20:56 LDL Cholesterol, Calc 117.0 mg/dL (0.0-131.0) 12/13/21 20:56 VLDL Cholesterol, Calc 22.00 mg/dL (5.00-40.00) 12/13/21 20:56 HDL Cholesterol 50.00 mg/dL (40.00-60.00) 12/13/21 20:56 Cholesterol/HDL Ratio 3.78 Ratio 12/13/21 20:56 TSH 0.762 mIU/L (0.465-4.680) 12/13/21 20:56 Urine Color Light Yellow 12/13/21 20:08 Urine Appearance Clear (Clear) 12/13/21 20:08 Urine pH 7.0 (5.0-8.0) 12/13/21 20:08 Ur Specific [place] 1.006 (1.001-1.035) 12/13/21 20:08 Urine Protein Negative (Negative) 12/13/21 20:08 Urine Glucose (UA) Negative (Negative) 12/13/21 20:08 Urine Ketones Negative (Negative) 12/13/21 20:08 Urine Blood Negative (Negative) 12/13/21 20:08 Urine Nitrite Negative (Negative) 12/13/21 20:08 Urine Bilirubin Negative (Negative) 12/13/21 20:08 Urine Urobilinogen <2.0 mg/dL (<2.0) 12/13/21 20:08 Ur Leukocyte Esterase Negative (Negative) 12/13/21 20:08 Salicylates <1.0 mg/dL 12/13/21 20:56 Urine Opiates Screen Detected (NotDetected) H 12/13/21 20:08 Ur Oxycodone Screen Not Detected (NotDetected) 12/13/21 20:08 Urine Methadone Screen Not Detected (NotDetected) 12/13/21 20:08 Ur Propoxyphene Screen Not Detected (NotDetected) 12/13/21 20:08 Acetaminophen <10.0 ug/mL 12/13/21 20:56 Ur Barbiturates Screen Not Detected (NotDetected) 12/13/21 20:08 U Tricyclic Antidepress Detected (NotDetected) H 12/13/21 20:08 Ur Phencyclidine Scrn Not Detected (NotDetected) 12/13/21 20:08 Ur Amphetamines Screen Not Detected (NotDetected) 12/13/21 20:08 U Methamphetamines Scrn Not Detected (NotDetected) 12/13/21 20:08 U Benzodiazepines Scrn Not Detected (NotDetected) 12/13/21 20:08 Urine Cocaine Screen Not Detected (NotDetected) 12/13/21 20:08 U Marijuana (THC) Screen Not Detected (NotDetected) 12/13/21 20:08 Serum Alcohol <10 mg/dL 12/13/21 20:56 Coronavirus (PCR) Not Detected (Not Detectd) 12/14/21 01:08 Impression: Bipolar 2 disorder Cocaine use disorder, in remission Tobacco use disorder Hyponatremia Plan: -Continue with discharge today as patient has improved and stabilized psychiatrically and is not currently an imminent threat to herself and/or others. Patient will remain at chronically elevated risk for harm to self and/or others due to her impulsivity and mismanagement of medications. However, the patient states that her family will monitor her medication administration. -Continue medications: Trileptal 300 mg by mouth twice a day for mood stabilization Gabapentin 800 mg by mouth 3 times a day for neuropathic pain and off label for anxiety Risperdal 2 mg by mouth twice a day for mood stabilization -Patient was counseled on the need for medication compliance and appropriate follow-up at mental health and also primary care for medical issues. Patient verbalized understanding and agreed. -Social work to arrange for and conduct family meeting to ensure safety upon discharge and answer any questions/concerns. Social work also to arrange for patients follow up appointments with [facility] for psychiatric care along with follow up with primary care provider. -Patient counseled on abstaining from recreational drugs and marijuana and alcohol. Was informed/educated on the adverse effects on their physical and mental health. Patient verbally agreed and understood. -Patient was instructed to return to the hospital or seek immediate medical care if their psychiatric or medical symptoms do worsen or reoccur. -Psychoeducation and supportive therapy provided to patient. Risks and benefits of pharmacological treatment versus the risks and benefits of nontreatment isaura ght and discussed. Informed consent discussion held. Common side effects of psychotropics discussed such as, but not limited to headache, GI disturbance, sexual dysfunction, movement disorders, sedation, and orthostatic hypotension. Life threatening and blackbox warnings of prescribed medications also discussed. Potential risks of operating a vehicle or heavy machinery discussed with patient at length. Advised on importance of compliance and a reliable and responsible manner. Patient advised to review FDA consumer labeling of all medications prior to taking. Patient verbalized understanding of potential risks, and agrees with current treatment plan. Patient advised to medically contact physician/emergency personnel if any acute changes in condition occur. Allergies Allergy/AdvReac Type Severity Reaction Status Date / Time cortisone [Cortisone] Allergy "FELT LIKE Verified 12/14/21 04:43 THROAT WAS CLOSING UP" latex Allergy Rash/Hives, Verified 12/14/21 04:43 ITCHING acetaminophen [From [place]] AdvReac Mild hives Verified 12/14/21 06:57 hydrocodone [From [place]] AdvReac Mild hives Verified 12/14/21 06:57 STEROIDS Allergy "FELT LIKE Uncoded 12/14/21 04:43 THROAT WAS CLOSING UP" Patient Condition at Discharge: Stable Plan - Discharge Summary New Discharge Prescriptions: New HYDROcodone/APAP 5-325MG [[place] 5-325] 1 each PO TID PRN tab PRN Reason: Pain OXcarbazepine [Trileptal] 300 mg PO BID 30 Days tab Gabapentin [Neurontin] 800 mg PO TID #45 cap risperiDONE [RisperDAL] 2 mg PO BID 14 Days tab Continue Levothyroxine Sodium [Synthroid] 75 mcg PO DAILY Albuterol Inhaler [Ventolin Hfa Inhaler] 2 puff INHALATION RT-QID PRN PRN Reason: Shortness Of Breath Omeprazole 40 mg PO AC-BID Clotrimazole [Lotrimin AF] 1 applic TOPICAL BID Albuterol Nebulized [Ventolin Nebulized] 2.5 mg INHALATION RT-QID PRN PRN Reason: Shortness Of Breath Atorvastatin Calcium [Lipitor] 20 mg PO HS Cholecalciferol [Vitamin D3 (125 Mcg = 5000 Iu)] 125 mcg PO DAILY Discontinued risperiDONE [RisperDAL] 2 mg PO BID #60 tab OXcarbazepine [Trileptal] 600 mg PO BID #60 tab Amitriptyline HCl [Elavil] 50 mg PO BID Benztropine Mesylate [Cogentin] 0.5 mg PO BID Mirtazapine 7.5 mg PO HS Ibuprofen [Motrin] 600 mg PO Q8HR PRN PRN Reason: Pain HYDROcodone/APAP 7.5-325MG [[place] 7.5-325] 1 tab PO TID PRN PRN Reason: Pain Vortioxetine Hydrobromide [Trintellix] 20 mg PO DAILY Gabapentin 600 mg PO TID Discharge Medication List Levothyroxine Sodium [Synthroid] 75 mcg PO DAILY 06/04/18 [History] Albuterol Inhaler [Ventolin Hfa Inhaler] 2 puff INHALATION RT-QID PRN 12/13/21 [History] Albuterol Nebulized [Ventolin Nebulized] 2.5 mg INHALATION RT-QID PRN 12/13/21 [History] Atorvastatin Calcium [Lipitor] 20 mg PO HS 12/13/21 [History] Cholecalciferol [Vitamin D3 (125 Mcg = 5000 Iu)] 125 mcg PO DAILY 12/13/21 [History] Clotrimazole [Lotrimin AF] 1 applic TOPICAL BID 12/13/21 [History] Omeprazole 40 mg PO AC-BID 12/13/21 [History] Gabapentin [Neurontin] 800 mg PO TID #45 cap 12/15/21 [Rx] HYDROcodone/APAP 5-325MG [[place] 5-325] 1 each PO TID PRN tab 12/15/21 [Rx] OXcarbazepine [Trileptal] 300 mg PO BID 30 Days tab 12/15/21 [Rx] risperiDONE [RisperDAL] 2 mg PO BID 14 Days tab 12/15/21 [Rx] Follow up Appointment(s)/Referral(s): [facility] [Outside] - 12/18/21 10:00 am (12-18-21 @ 10:00 with Hattie Lloyd 12-21-21 @ 12:00 with ARA Kenny Both at [facility] office) Linda Titus MD [Primary Care Provider] - 1-2 days Patient Instructions/Handouts: Bipolar Disorder (DC) Activity/Diet/Wound Care/Special Instructions: Pt discharged with boyfriend at 1034 with understanding of discharge instructions. Prescriptions and discharge papers given with verb understanding. Activity and diet as tolerated. Avoid the use of street drugs and alcohol. Take all medications as prescribed. When you are in need of refills on your medications please contact your medical provider and/or outpatient psychiatrist to have this done. Please go to scheduled outpatient appointment for aftercare treatment. If symptoms return or become worse, call the crisis line at and/or go to the nearest emergency room for evaluation Discharge Disposition: HOME SELF-CARE
== END 2021-12-15 10:34 | disposition home or self-care (01) | DRG 885 ==
LOC: EC 18:32 → 3MHU 12-14 03:41
PROVIDERS: ADMIT Psychiatry & Neurology Psychiatry; ATTEND Psychiatry & Neurology Psychiatry
DX: F31.81 Bipolar II disorder (principal); E87.1 Hypo-osmolality and hyponatremia; F14.21 Cocaine dependence, in remission; F17.210 Nicotine dependence, cigarettes, uncomplicated; F41.0 Panic disorder [episodic paroxysmal anxiety]; G89.29 Other chronic pain; J45.909 Unspecified asthma, uncomplicated; E66.9 Obesity, unspecified; E03.9 Hypothyroidism, unspecified; K59.00 Constipation, unspecified; Z68.31 Body mass index [BMI] 31.0-31.9, adult; Z79.890 Hormone replacement therapy; Z79.899 Other long term (current) drug therapy; Z91.51 Personal history of suicidal behavior; Z20.822 Contact with and (suspected) exposure to COVID-19
CPT/HCPCS: 36415; 80053; 80061; 80143; 80179; 80183; 80306; 80320; 81003; 82075; 82140; 83036; 83735; 84443; 84484; 85025; 87635; 93005; 99285

== ENCOUNTER 2021-12-17 21:25 | Inpatient (IN) | payer OTHER ==
--- NOTE | 2021-12-17 21:56 | ED ---
Psych HPI - General Chief Complaint: Psychiatric Symptoms Stated Complaint: Petition Time Seen by Provider: 12/17/21 21:39 Source: patient, family, police, RN notes reviewed, old records reviewed Mode of arrival: ambulatory Limitations: no limitations - History of Present Illness Initial Comments: This is a 46-year-old female presents today for evaluation. Patient does have psychiatric illness with recent psychiatric admission. Patient took overdose today. Overdose on [place] overdose on gabapentin. MD Complaint: suicidal ideation, feels depressed -: hour(s) Associated Psychiatric Symptoms: depression, suicidal ideation Quality: constant, getting worse Improves With: none Worsens With: none Context: significant life stressor Associated Symptoms: denies other symptoms Treatments Prior to Arrival: placed on mental health hold If Self Harm: admits thoughts of self harm, intentional overdose - Related Data Home Medications Medication Instructions Recorded Confirmed Levothyroxine Sodium [Synthroid] 75 mcg PO DAILY 06/04/18 12/13/21 Albuterol Inhaler [Ventolin Hfa 2 puff INHALATION RT-QID PRN 12/13/21 12/13/21 Inhaler] Albuterol Nebulized [Ventolin 2.5 mg INHALATION RT-QID PRN 12/13/21 12/13/21 Nebulized] Atorvastatin Calcium [Lipitor] 20 mg PO HS 12/13/21 12/13/21 Cholecalciferol [Vitamin D3 (125 125 mcg PO DAILY 12/13/21 12/13/21 Mcg = 5000 Iu)] Clotrimazole [Lotrimin AF] 1 applic TOPICAL BID 12/13/21 12/13/21 Omeprazole 40 mg PO AC-BID 12/13/21 12/13/21 Previous Rx's Medication Instructions Recorded Gabapentin [Neurontin] 800 mg PO TID #45 cap 12/15/21 HYDROcodone/APAP 5-325MG [[place] 1 each PO TID PRN tab 12/15/21 5-325] OXcarbazepine [Trileptal] 300 mg PO BID 30 Days tab 12/15/21 risperiDONE [RisperDAL] 2 mg PO BID 14 Days tab 12/15/21 Allergies Allergy/AdvReac Type Severity Reaction Status Date / Time cortisone [Cortisone] Allergy "FELT LIKE Verified 12/17/21 21:46 THROAT WAS CLOSING UP" latex Allergy Rash/Hives, Verified 12/17/21 21:46 ITCHING acetaminophen [From [place]] AdvReac Mild hives Verified 12/17/21 21:46 hydrocodone [From [place]] AdvReac Mild hives Verified 12/17/21 21:46 STEROIDS Allergy "FELT LIKE Uncoded 12/17/21 21:46 THROAT WAS CLOSING UP" Review of Systems ROS Statement: Those systems with pertinent positive or pertinent negative responses have been documented in the HPI. ROS Other: All systems not noted in ROS Statement are negative. Past Medical History Past Medical History: Asthma, Thyroid Disorder Additional Past Medical History / Comment(s): BACK PAIN, History of Any Multi-Drug Resistant Organisms: None Reported Past Surgical History: Hernia Repair, Tubal Ligation, Uterine Ablation Additional Past Surgical History / Comment(s): CYST ON FACE REMOVED, OVARY REMOVED, HIATAL HERNIA REPAIR Past Anesthesia/Blood Transfusion Reactions: Motion Sickness Past Psychological History: Anxiety, Bipolar, Panic Disorder Past Alcohol Use History: None Reported Past Drug Use History: Cocaine - Past Family History Mother Family Medical History: Cancer Additional Family Medical History / Comment(s): BREAST General Exam General appearance: alert, in no apparent distress Head exam: Present: atraumatic, normocephalic, normal inspection Eye exam: Present: normal appearance, PERRL, EOMI. Absent: scleral icterus, conjunctival injection, periorbital swelling ENT exam: Present: normal exam, mucous membranes moist Neck exam: Present: normal inspection. Absent: tenderness, meningismus, lymphadenopathy Respiratory exam: Present: normal lung sounds bilaterally. Absent: respiratory distress, wheezes, rales, rhonchi, stridor Cardiovascular Exam: Present: regular rate, normal rhythm, normal heart sounds. Absent: systolic murmur, diastolic murmur, rubs, gallop, clicks GI/Abdominal exam: Present: soft, normal bowel sounds. Absent: distended, tenderness, guarding, rebound, rigid Extremities exam: Present: normal inspection, full ROM, normal capillary refill. Absent: tenderness, pedal edema, joint swelling, calf tenderness Back exam: Present: normal inspection Neurological exam: Present: alert, oriented X3, CN II-XII intact Psychiatric exam: Present: normal affect, normal mood Skin exam: Present: warm, dry, intact, normal color. Absent: rash Course Vital Signs 12/17/21 12/18/21 21:48 00:59 Temperature 98.1 F 98.4 F Pulse Rate 88 81 Respiratory 18 18 Rate Blood Pressure 120/80 104/72 O2 Sat by Pulse 94 L 98 Oximetry - Reevaluation(s) Reevaluation #1: 12/17/21 22:40 Medical records reviewed 12/18/21 02:05 Medical clear for psychiatric evaluation Medical Decision Making - Medical Decision Making 46 female is seen and evaluated by psychiatry here in the ER will be admitted for psychiatric evaluation and treatment - Lab Data Result diagrams: 12/17/21 22:02 12/17/21 22:02 Lab Results 12/17/21 12/17/21 12/17/21 Range/Units 22:02 22:02 23:50 WBC 10.6 (3.8-10.6) k/uL RBC 4.85 (3.80-5.40) m/uL Hgb 14.5 (11.4-16.0) gm/dL Hct 45.2 (34.0-46.0) % MCV 93.2 (80.0-100.0) fL MCH 29.8 (25.0-35.0) pg MCHC 32.0 (31.0-37.0) g/dL RDW 12.4 (11.5-15.5) % Plt Count 302 (150-450) k/uL MPV 7.6 Neutrophils % 58 % Lymphocytes % 33 % Monocytes % 5 % Eosinophils % 2 % Basophils % 1 % Neutrophils # 6.2 (1.3-7.7) k/uL Lymphocytes # 3.5 (1.0-4.8) k/uL Monocytes # 0.6 (0-1.0) k/uL Eosinophils # 0.2 (0-0.7) k/uL Basophils # 0.1 (0-0.2) k/uL Sodium 138 (137-145) mmol/L Potassium 4.5 (3.5-5.1) mmol/L Chloride 104 (98-107) mmol/L Carbon Dioxide 27 (22-30) mmol/L Anion Gap 7 mmol/L BUN 11 (7-17) mg/dL Creatinine 0.63 (0.52-1.04) mg/dL Est GFR (CKD-EPI)AfAm >90 (>60 ml/min/1.73 sqM) Est GFR (CKD-EPI)NonAf >90 (>60 ml/min/1.73 sqM) Glucose 101 H (74-99) mg/dL Calcium 9.1 (8.4-10.2) mg/dL Total Bilirubin 0.3 (0.2-1.3) mg/dL AST 24 (14-36) U/L ALT 23 (4-34) U/L Alkaline Phosphatase 91 (38-126) U/L Total Protein 7.2 (6.3-8.2) g/dL Albumin 4.7 (3.5-5.0) g/dL Urine Color Light Yellow Urine Appearance Clear (Clear) Urine pH 6.0 (5.0-8.0) Ur Specific [place] 1.020 (1.001-1.035) Urine Protein Negative (Negative) Urine Glucose (UA) Negative (Negative) Urine Ketones Negative (Negative) Urine Blood Negative (Negative) Urine Nitrite Negative (Negative) Urine Bilirubin Negative (Negative) Urine Urobilinogen <2.0 (<2.0) mg/dL Ur Leukocyte Esterase Negative (Negative) Salicylates <1.0 mg/dL Urine Opiates Screen Detected H (NotDetected) Ur Oxycodone Screen Detected H (NotDetected) Urine Methadone Screen Not Detected (NotDetected) Ur Propoxyphene Screen Not Detected (NotDetected) Acetaminophen 31.0 ug/mL Ur Barbiturates Screen Not Detected (NotDetected) U Tricyclic Antidepress Detected H (NotDetected) Ur Phencyclidine Scrn Not Detected (NotDetected) Ur Amphetamines Screen Not Detected (NotDetected) U Methamphetamines Scrn Not Detected (NotDetected) U Benzodiazepines Scrn Not Detected (NotDetected) Urine Cocaine Screen Not Detected (NotDetected) U Marijuana (THC) Screen Not Detected (NotDetected) Serum Alcohol <10 mg/dL Coronavirus (PCR) (Not Detectd) 12/18/21 12/18/21 Range/Units 00:26 01:20 WBC (3.8-10.6) k/uL RBC (3.80-5.40) m/uL Hgb (11.4-16.0) gm/dL Hct (34.0-46.0) % MCV (80.0-100.0) fL MCH (25.0-35.0) pg MCHC (31.0-37.0) g/dL RDW (11.5-15.5) % Plt Count (150-450) k/uL MPV Neutrophils % % Lymphocytes % % Monocytes % % Eosinophils % % Basophils % % Neutrophils # (1.3-7.7) k/uL Lymphocytes # (1.0-4.8) k/uL Monocytes # (0-1.0) k/uL Eosinophils # (0-0.7) k/uL Basophils # (0-0.2) k/uL Sodium (137-145) mmol/L Potassium (3.5-5.1) mmol/L Chloride (98-107) mmol/L Carbon Dioxide (22-30) mmol/L Anion Gap mmol/L BUN (7-17) mg/dL Creatinine (0.52-1.04) mg/dL Est GFR (CKD-EPI)AfAm (>60 ml/min/1.73 sqM) Est GFR (CKD-EPI)NonAf (>60 ml/min/1.73 sqM) Glucose (74-99) mg/dL Calcium (8.4-10.2) mg/dL Total Bilirubin (0.2-1.3) mg/dL AST (14-36) U/L ALT (4-34) U/L Alkaline Phosphatase (38-126) U/L Total Protein (6.3-8.2) g/dL Albumin (3.5-5.0) g/dL Urine Color Urine Appearance (Clear) Urine pH (5.0-8.0) Ur Specific [place] (1.001-1.035) Urine Protein (Negative) Urine Glucose (UA) (Negative) Urine Ketones (Negative) Urine Blood (Negative) Urine Nitrite (Negative) Urine Bilirubin (Negative) Urine Urobilinogen (<2.0) mg/dL Ur Leukocyte Esterase (Negative) Salicylates mg/dL Urine Opiates Screen (NotDetected) Ur Oxycodone Screen (NotDetected) Urine Methadone Screen (NotDetected) Ur Propoxyphene Screen (NotDetected) Acetaminophen <10.0 ug/mL Ur Barbiturates Screen (NotDetected) U Tricyclic Antidepress (NotDetected) Ur Phencyclidine Scrn (NotDetected) Ur Amphetamines Screen (NotDetected) U Methamphetamines Scrn (NotDetected) U Benzodiazepines Scrn (NotDetected) Urine Cocaine Screen (NotDetected) U Marijuana (THC) Screen (NotDetected) Serum Alcohol mg/dL Coronavirus (PCR) Not Detected (Not Detectd) - EKG Data -: EKG Interpreted by Me (EKG sinus rhythm 60 MT 150 QRS 77 QTc 450) Disposition Clinical Impression: Depression, Suicidal ideation, Attempted suicide Disposition: TRANSFER TO PSYCH HOSP/UNIT Condition: Fair Is patient prescribed a controlled substance at d/c from ED?: No Referrals: Linda Titus MD [Primary Care Provider] - 1-2 days
[2021-12-17 22:08] LABS: Basophils # (A) 0.1 k/uL (0-0.2); Basophils % (A) 1 %; Eosinophils # (A) 0.2 k/uL (0-0.7); Eosinophils % (A) 2 %; HCT 45.2 % (34.0-46.0); HGB 14.5 gm/dL (11.4-16.0); Lymphocytes # (A) 3.5 k/uL (1.0-4.8); Lymphocytes % (A) 33 %; MCH 29.8 pg (25.0-35.0); MCV 93.2 fL (80.0-100.0); Mean Platelet Volume 7.6; Monocytes # (A) 0.6 k/uL (0-1.0); Monocytes % (A) 5 %; Neutrophils # (A) 6.2 k/uL (1.3-7.7); Neutrophils % (A) 58 %; Platelet Count 302 k/uL (150-450); RBC 4.85 m/uL (3.80-5.40); RDW 12.4 % (11.5-15.5); WBC 10.6 k/uL (3.8-10.6)
[2021-12-17 22:21] LABS: ALT 23 U/L (4-34); AST 24 U/L (14-36); African American GFR (CKD) >90 (>60 ml/min/1.73 sqM); Albumin 4.7 g/dL (3.5-5.0); Alcohol <10 mg/dL; Alkaline Phosphatase 91 U/L (38-126); Anion Gap 7 mmol/L; Blood Urea Nitrogen 11 mg/dL (7-17); Calcium 9.1 mg/dL (8.4-10.2); Carbon Dioxide 27 mmol/L (22-30); Chloride 104 mmol/L (98-107); Glucose 101 mg/dL (74-99); Non-African American GFR(CKD) >90 (>60 ml/min/1.73 sqM); Potassium 4.5 mmol/L (3.5-5.1); Salicylate <1.0 mg/dL; Sodium 138 mmol/L (137-145); Total Bilirubin 0.3 mg/dL (0.2-1.3); Total Protein 7.2 g/dL (6.3-8.2)
[2021-12-18 00:09] LABS: Appearance,Urine Clear (Clear); Bilirubin,Urine Negative (Negative); Blood,Urine Negative (Negative); Color,Urine Light Yellow; Glucose,Urine (UA) Negative (Negative); Ketones,Urine Negative (Negative); Leukocyte Esterase,Urine Negative (Negative); Nitrite,Urine Negative (Negative); Protein,Urine Negative (Negative); Urobilinogen,Urine <2.0 mg/dL (<2.0)
[2021-12-18 00:15] LABS: Amphetamine Screen,Urine Not Detected (NotDetected); Barbiturate Screen,Urine Not Detected (NotDetected); Benzodiazepines Screen,Urine Not Detected (NotDetected); Cocaine Screen,Urine Not Detected (NotDetected); Methadone Screen, Urine Not Detected (NotDetected); Opiate Screen,Urine Detected (NotDetected); Oxycodone Screen, Urine Detected (NotDetected); Phencyclidine Screen,Urine Not Detected (NotDetected); Tricyclic Antidepressant,Urine Detected (NotDetected); Urn Cannabinoid Scrn Not Detected (NotDetected)
[2021-12-18] MEDS ORDERED: NICOTINE 7MG/24HR PATCH TRANSDERM STA (00:27)
[2021-12-18] MEDS ORDERED: LORazepam 2 MG/ML INJ IM PRN (02:33)
[2021-12-18] MEDS ORDERED: HALOPERIDOL LACTATE 5 MG/ML 1 ML VIAL IM PRN (02:33)
[2021-12-18] MEDS ORDERED: MAGNESIUM HYDROXIDE 2,400 MG/10 ML CUP PO PRN (02:33)
[2021-12-18] MEDS ORDERED: haloperidoL 5 MG TAB PO PRN (02:33)
[2021-12-18] MEDS ORDERED: MAG HYDROX/AL HYDROX/SIMETH 30 ML CUP PO PRN (02:33)
[2021-12-18] MEDS ORDERED: ALBUTEROL INHALER 60 PUFF/8 GM INHALER (MHU) INHALATION PRN (02:37)
[2021-12-18] MEDS: LEVOTHYROXINE 75 MCG TAB PO SCH (06:49)
[2021-12-18] MEDS: NICOTINE 14MG/24HR PATCH TRANSDERM SCH (11:26)
[2021-12-18] MEDS: CHOLECALCIFEROL 125 MCG (5000 IU) TABLET PO SCH (11:27)
[2021-12-18] MEDS: CLOTRIMAZOLE 1% CREAM 30 GM TUBE TOPICAL SCH ×2 (11:27→21:38)
[2021-12-18] MEDS: OXcarbazepine 300 MG TAB PO SCH ×2 (11:28→20:47)
[2021-12-18] MEDS: PANTOPRAZOLE 40 MG TABLET PO SCH ×2 (11:28→17:46)
[2021-12-18] MEDS: risperiDONE 2 MG TAB PO SCH ×2 (11:28→20:47)
[2021-12-18] MEDS: GABAPENTIN 300 MG CAP PO SCH ×3 (11:29→21:32)
[2021-12-18] MEDS: HYDROcodone/APAP 5-325MG 1 EACH TAB PO PRN ×2 (11:29→20:46)
--- NOTE | 2021-12-18 11:53 | P.HP ---
Psychiatric H&P - . H&P Date: 12/18/21 History & Physical: IDENTIFYING DATA: Patient is a 46 year old single, unemployed, on disability, female with history of bipolar disorder who presents to the hospital on a petition after overdosing on [place] and Gabapentin. HPI: Patient presented to the hospital following overdose on four each of [place] 7.5-325 mg and Gabapentin 600 mg. Per petition completed by her boyfriend, patient took a handful of pills in front of her mother and said she hopes to . Patient reports she took these pills because she is in a lot of pain, not because she was trying to kill herself. She admits to being "dramatic" when she took the pills but denies she was suicidal. She reports her family brought her to the hospital so they wouldn't have to "babysit" her. Her insight and judgment are poor. She appears to be an unreliable historian. Patient denies any suicidal or homicidal ideations intent or plan. At this time patient denies any auditory or visual hallucinations. Patient denies any flight of ideas, racing thoughts, and increased in goal directed behavior. She reports she follows at a pain clinic at [address] [place] [address], where she gets her [place]. Patient has poor insight into her actions, appears to utilize defense mechanisms of denial and minimization. She repeats there is nothing wrong with her and demands to go home. She also repeatedly rocks back and forth in her chair, repeatedly states she is in severe pain, and demands her [place] and Gabapentin. Objectively, she appears to sit/stand, enter/leave the room multiple times without any indication she is in pain of the intensity that she claims. Patient appears to escalate unt il she was told her [place] and Gabapentin will be ordered, then she calms down and leaves the room. Labs reviewed and CBC, CMP, UA are unremarkable. UDS is positive for opiates, oxycodone and tricyclics. PAST PSYCHIATRIC HISTORY: Patient states that she has been previously diagnosed with bipolar disorder. Patient reports previous trials: Trintellix, Cogentin, Depakote, [place], Trileptal, Risperdal, Amitriptyline. Patient was just discharged from [facility] 12/15/2021. She was also hospitalized at [facility] in 2019. She is open with [facility]. Patient reports multiple attempts at suicide in the past. PMH: Past Medical History: Asthma, Thyroid Disorder Additional Past Medical History / Comment(s): BACK PAIN, History of Any Multi-Drug Resistant Organisms: None Reported Past Surgical History: Hernia Repair, Tubal Ligation, Uterine Ablation Additional Past Surgical History / Comment(s): CYST ON FACE REMOVED, OVARY REMOVED, HIATAL HERNIA REPAIR Past Anesthesia/Blood Transfusion Reactions: Motion Sickness Past Psychological History: Anxiety, Bipolar, Panic Disorder Past Alcohol Use History: None Reported Past Drug Use History: Cocaine ALLERGIES: as per EMR CHEMICAL DEPENDENCY HISTORY: Currently smokes 1.5 PPD tobacco; no interested in quitting, precontemplative. Patient denies any alcohol, marijuana, or illicit drugs. The patient has previously abused crack cocaine however states that she has been sober since 2019. FAMILY PSYCHIATRIC/SUBSTANCE USE HISTORY: Mom and daughter - bipolar disorder SOCIAL HISTORY: Patient was born and raised in [place], [place]. She has 2 daughters. The patient receives disability. She reports no alevism affiliation. She currently denies any legal issues. Lives with her boyfriend, her mother and her daughter (17 yo). MENTAL STATUS EXAM: General Appearance: Patient appears to be stated age; hygiene and grooming is fair. Behavior: Patient is seated without any agitated behavior, but is impulsive, demanding and rocks back/forth in her chair. Speech: Patient's speech is fluent and non-pressured, but she speaks with irritable and loud tone. Mood/Affect: Patient reports mood is "always depressed", affect is congruent and constricted. Suicidality/Homicidality: Patient denies having any homicidal ideation intent or plan. Denies any suicidal ideations, intent or plan. Perceptions: Patient denies any visual hallucinations and denies any auditory hallucinations. Though content/process: There is no evidence of any delusional thought content and thought process is linear and goal-directed. Memory and concentration: AOX3, grossly intact for the purposes of this session. Can spell "WORLD" backwards Judgment and insight: Poor STRENGTHS/WEAKNESSES: strength is that patient is "no I can't". Weakness is that patient is "pills, when I'm in pain". INTELLECT: Average IMPRESSIONS: Bipolar disorder, unspecified Opioid use disorder Cocaine use disorder, in remission Tobacco use disorder PLAN: -Patient is admitted under involuntary status to [facility] for stabilization of psychiatric symptoms and safety. Patient has not signed adult voluntary form and medication consent. A second certification was completed and along with petition will be filed for court. -Medications: Will restart patient on [place] 5-325 mg Q8H PRN for pain/prevent withdrawal with plan to taper down and discontinue due to overuse. Will restart patient on Gabapentin 600 mg TID for pain/prevent withdrawal with plan to taper down and discontinue due to overuse. Continue home medications: Trileptal 300 mg BID for mood and Risperdal 2 mg BID for mood. -Ativan and Haldol PRN for agitation/aggression. -Patient was counselled on substance abuse and did not desire to cut back on use. -Patient was informed of the risks, benefits and side effects of the medication and patient verbally consented to taking the medications. -Internal Medicine consult to perform medical evaluation and physical. -NRT - nicotine patch -SW on board for discharge planning. Encourage patient to participate in groups to work on coping skills. Allergies Allergy/AdvReac Type Severity Reaction Status Date / Time cortisone [Cortisone] Allergy "FELT LIKE Verified 12/17/21 21:46 THROAT WAS CLOSING UP" latex Allergy Rash/Hives, Verified 12/17/21 21:46 ITCHING STEROIDS Allergy "FELT LIKE Uncoded 12/17/21 21:46 THROAT WAS CLOSING UP" Vital Signs Temp 97.3 F L 12/18/21 03:16 Pulse 83 12/18/21 03:16 Resp 20 12/18/21 03:16 BP 141/84 12/18/21 03:16 Pulse Ox 92 L 12/18/21 03:16 FiO2 Intake & Output 12/17/21 12/18/21 12/18/21 18:59 06:59 18:59 Weight 81.647 kg Laboratory Last Values WBC 10.6 k/uL (3.8-10.6) 12/17/21 22:02 RBC 4.85 m/uL (3.80-5.40) 12/17/21 22:02 Hgb 14.5 gm/dL (11.4-16.0) 12/17/21 22:02 Hct 45.2 % (34.0-46.0) 12/17/21 22:02 MCV 93.2 fL (80.0-100.0) 12/17/21 22:02 MCH 29.8 pg (25.0-35.0) 12/17/21 22:02 MCHC 32.0 g/dL (31.0-37.0) 12/17/21 22:02 RDW 12.4 % (11.5-15.5) 12/17/21 22:02 Plt Count 302 k/uL (150-450) 12/17/21 22:02 MPV 7.6 12/17/21 22:02 Neutrophils % 58 % 12/17/21 22:02 Lymphocytes % 33 % 12/17/21 22:02 Monocytes % 5 % 12/17/21 22:02 Eosinophils % 2 % 12/17/21 22: Basophils % 1 % 12/17/21 22:02 Neutrophils # 6.2 k/uL (1.3-7.7) 12/17/21 22: Lymphocytes # 3.5 k/uL (1.0-4.8) 12/17/21 22: Monocytes # 0.6 k/uL (0-1.0) 12/17/21 22: Eosinophils # 0.2 k/uL (0-0.7) 12/17/21 22:02 Basophils # 0.1 k/uL (0-0.2) 12/17/21 22:02 Sodium 138 mmol/L (137-145) 12/17/21 22:02 Potassium 4.5 mmol/L (3.5-5.1) 12/17/21 22: Chloride 104 mmol/L (98-107) 12/17/21 22:02 Carbon Dioxide 27 mmol/L (22-30) 12/17/21 22:02 Anion Gap 7 mmol/L 12/17/21 22:02 BUN 11 mg/dL (7-17) 12/17/21 22:02 Creatinine 0.63 mg/dL (0.52-1.04) 12/17/21 22:02 Est GFR (CKD-EPI)AfAm >90 (>60 ml/min/1.73 sqM) 12/17/21 22:02 Est GFR (CKD-EPI)NonAf >90 (>60 ml/min/1.73 sqM) 12/17/21 22:02 Glucose 101 mg/dL (74-99) H 12/17/21 22:02 Calcium 9.1 mg/dL (8.4-10.2) 12/17/21 22:02 Total Bilirubin 0.3 mg/dL (0.2-1.3) 12/17/21 22:02 AST 24 U/L (14-36) 12/17/21 22:02 ALT 23 U/L (4-34) 12/17/21 22:02 Alkaline Phosphatase 91 U/L (38-126) 12/17/21 22:02 Total Protein 7.2 g/dL (6.3-8.2) 12/17/21 22:02 Albumin 4.7 g/dL (3.5-5.0) 12/17/21 22:02 Urine Color Light Yellow 12/17/21 23:50 Urine Appearance Clear (Clear) 12/17/21 23:50 Urine pH 6.0 (5.0-8.0) 12/17/21 23:50 Ur Specific [place] 1.020 (1.001-1.035) 12/17/21 23:50 Urine Protein Negative (Negative) 12/17/21 23:50 Urine Glucose (UA) Negative (Negative) 12/17/21 23:50 Urine Ketones Negative (Negative) 12/17/21 23:50 Urine Blood Negative (Negative) 12/17/21 23:50 Urine Nitrite Negative (Negative) 12/17/21 23:50 Urine Bilirubin Negative (Negative) 12/17/21 23:50 Urine Urobilinogen <2.0 mg/dL (<2.0) 12/17/21 23:50 Ur Leukocyte Esterase Negative (Negative) 12/17/21 23:50 Salicylates <1.0 mg/dL 12/17/21 22:02 Urine Opiates Screen Detected (NotDetected) H 12/17/21 23:50 Ur Oxycodone Screen Detected (NotDetected) H 12/17/21 23:50 Urine Methadone Screen Not Detected (NotDetected) 12/17/21 23:50 Ur Propoxyphene Screen Not Detected (NotDetected) 12/17/21 23:50 Acetaminophen <10.0 ug/mL 12/18/21 01:20 Ur Barbiturates Screen Not Detected (NotDetected) 12/17/21 23:50 U Tricyclic Antidepress Detected (NotDetected) H 12/17/21 23:50 Ur Phencyclidine Scrn Not Detected (NotDetected) 12/17/21 23:50 Ur Amphetamines Screen Not Detected (NotDetected) 12/17/21 23:50 U Methamphetamines Scrn Not Detected (NotDetected) 12/17/21 23:50 U Benzodiazepines Scrn Not Detected (NotDetected) 12/17/21 23:50 Urine Cocaine Screen Not Detected (NotDetected) 12/17/21 23:50 U Marijuana (THC) Screen Not Detected (NotDetected) 12/17/21 23:50 Serum Alcohol <10 mg/dL 12/17/21 22:02 Coronavirus (PCR) Not Detected (Not Detectd) 12/18/21 00:26 12/18/21 11:07
--- NOTE | 2021-12-18 14:14 | P.CONS ---
History of Present Illness - Reason for Consult Consult date: 12/18/21 Management of Chronic Conditions Requesting physician: Areli Pillai - History of Present Illness This is a 46 year old female with history of asthma, COPD, thyroid disorder, chronic back pain with pinched cervical nerve, peripheral neuropathy, anxiety, bipolar, who presented to the emergency room after overdose on norco and gabapentin. Per patient her mother and boyfriend were concerned about her. Patient states she took 4 of each with the intent of pain management. She currently follows with pain management outpatient, as well as [facility]. She denies suicidal ideations currently and also at time of admission states she has not been. She would like to be discharge. She was recently discharged for psychiatric evaluation on 12/15/2021 where she received inpatient treatment. During that hospitalization patients gabapentin was increased to 800 mg TID, and also Trileptal was decreased. She is prescribed norco TID. States she was unable to follow the 800 mg gabapentin script as she has gabapentin 600 mgs already at home. Patient also daily smoker, currently smoking 2 packs per day as of the last month, with history of cocaine, prescription opioid abuse. States she hasn't used in 3 years. Currently lives with her boyfriend, states the relationship is speedy. Vitals on admission showing sinus rhythm heart rate 68, no ST or T wave changes and QT interval of 450. Chemistry and electrolyte panel are unremarkable, urinalysis negative. Urine drug screen showing opiates, oxycodone, TCAs. Serum alcohol <10. Acetaminophen level on admission 31, it is now <10.0. Home medications have been resumed, and is receiving nicotine patch. REVIEW OF SYSTEMS: CONSTITUTIONAL: No fever, no malaise, no fatigue. HEENT: No recent visual problems or hearing problems. Denied any sore throat. CARDIOVASCULAR: No chest pain, orthopnea, PND, no palpitations, no syncope. PULMONARY: No shortness of breath, no cough, no hemoptysis. GASTROINTESTINAL: No diarrhea, no nausea, no vomiting, no abdominal pain. NEUROLOGICAL: No headaches, no weakness, no numbness. HEMATOLOGICAL: Denies any bleeding or petechiae. GENITOURINARY: Denies any burning micturition, frequency, or urgency. MUSCULOSKELETAL/RHEUMATOLOGICAL: Denies any joint pain, swelling, or any muscle pain. ENDOCRINE: Denies any polyuria or polydipsia. The rest of the 14-point review of systems is negative. PHYSICAL EXAMINATION: GENERAL: The patient is alert and oriented x3, not in any acute distress. Well developed, well nourished. HEENT: Pupils are round and equally reacting to light. EOMI. No scleral icterus. No conjunctival pallor. Normocephalic, atraumatic. No pharyngeal erythema. No thyromegaly. CARDIOVASCULAR: S1 and S2 present. No murmurs, rubs, or gallops. PULMONARY: Chest is clear to auscultation, no wheezing or crackles. ABDOMEN: Soft, nontender, nondistended, normoactive bowel sounds. No palpable organomegaly. MUSCULOSKELETAL: No joint swelling or deformity. EXTREMITIES: No cyanosis, clubbing, or pedal edema. NEUROLOGICAL: Gross neurological examination did not reveal any focal deficits. SKIN: No rashes. Assessment and Plan Assessment Overdose on gabapentin and norco History of chronic back pain with peripheral neuropathy follows with pain management History of asthma, COPD no in acute exacerbation History of hypothyroidism Anxiety / Panic disorder Bipolar Chronic daily nicotine use counseling provided on cessation GI Prophylaxis Full Code Plan Resume appropriate home medications Nicotine patch Continue all other supportive care Thank you kindly for this consultation The impression and plan of care has been dictated by Jacinta Patel, Nurse Practitioner as directed. Dr. Efren MD I have performed a history and physical examination and medical decision making of this patient, discussed the same with the dictator, and agree with the dictators assessment and plan as written, documented as a scribe. Based on total visit time, I have performed more than 50% of this visit. Past Medical History Past Medical History: Asthma, COPD, Musculoskeletal Disorder, Thyroid Disorder Additional Past Medical History / Comment(s): BACK PAIN, History of Any Multi-Drug Resistant Organisms: None Reported Past Surgical History: Hernia Repair, Tubal Ligation, Uterine Ablation Additional Past Surgical History / Comment(s): CYST ON FACE REMOVED, OVARY REMOVED, HIATAL HERNIA REPAIR Past Anesthesia/Blood Transfusion Reactions: No Reported Reaction, Motion Sickness Smoking Status: Current every day smoker - Past Family History Mother Family Medical History: Cancer Additional Family Medical History / Comment(s): BREAST Medications and Allergies Home Medications Medication Instructions Recorded Confirmed Type Levothyroxine Sodium [Synthroid] 75 mcg PO DAILY 06/04/18 12/13/21 History Albuterol Inhaler [Ventolin Hfa 2 puff INHALATION RT-QID PRN 12/13/21 12/13/21 History Inhaler] Albuterol Nebulized [Ventolin 2.5 mg INHALATION RT-QID PRN 12/13/21 12/13/21 History Nebulized] Atorvastatin Calcium [Lipitor] 20 mg PO HS 12/13/21 12/13/21 History Cholecalciferol [Vitamin D3 (125 125 mcg PO DAILY 12/13/21 12/13/21 History Mcg = 5000 Iu)] Clotrimazole [Lotrimin AF] 1 applic TOPICAL PRN 12/13/21 12/13/21 History Omeprazole 40 mg PO AC-BID 12/13/21 12/13/21 History Gabapentin [Neurontin] 800 mg PO TID #45 cap 12/15/21 Rx HYDROcodone/APAP 5-325MG [[place] 1 each PO TID PRN tab 12/15/21 Rx 5-325] OXcarbazepine [Trileptal] 300 mg PO BID 30 Days tab 12/15/21 Rx risperiDONE [RisperDAL] 2 mg PO BID 14 Days tab 12/15/21 12/18/21 Rx Allergies Allergy/AdvReac Type Severity Reaction Status Date / Time cortisone [Cortisone] Allergy "FELT LIKE Verified 12/17/21 21:46 THROAT WAS CLOSING UP" latex Allergy Rash/Hives, Verified 12/17/21 21:46 ITCHING STEROIDS Allergy "FELT LIKE Uncoded 12/17/21 21:46 THROAT WAS CLOSING UP" Physical Exam Vitals: Vital Signs Temp Pulse Pulse Resp BP BP Pulse Ox 12/18/21 03:16 97.3 F L 83 20 141/84 92 L 12/18/21 02:46 97.5 F L 78 18 103/66 93 L 12/18/21 00:59 98.4 F 81 18 104/72 98 12/17/21 21:48 98.1 F 88 18 120/80 94 L Intake and Output 12/17/21 12/18/21 12/18/21 22:59 06:59 14:59 Other: Weight 81.647 kg 81.647 kg Results CBC & Chem 7: 12/17/21 22:02 12/17/21 22:02 Labs: Abnormal Lab Results - Last 24 Hours (Table) 12/17/21 12/17/21 Range/Units 22:02 23:50 Glucose 101 H (74-99) mg/dL Urine Opiates Screen Detected H (NotDetected) Ur Oxycodone Screen Detected H (NotDetected) U Tricyclic Antidepress Detected H (NotDetected) Assessment and Plan Time with Patient: Less than 30
[2021-12-18] MEDS: ATORVASTATIN 20 MG TAB PO SCH (20:47)
[2021-12-18] MEDS: LORazepam 1 MG TAB PO PRN (21:32)
[2021-12-19] MEDS: HYDROcodone/APAP 5-325MG 1 EACH TAB PO PRN ×3 (05:52→20:43)
[2021-12-19] MEDS: LEVOTHYROXINE 75 MCG TAB PO SCH (05:52)
[2021-12-19] MEDS: LORazepam 1 MG TAB PO PRN ×3 (06:41→20:07)
[2021-12-19] MEDS: NICOTINE 14MG/24HR PATCH TRANSDERM SCH (08:29)
[2021-12-19] MEDS: PANTOPRAZOLE 40 MG TABLET PO SCH ×2 (08:31→15:33)
[2021-12-19] MEDS: CHOLECALCIFEROL 125 MCG (5000 IU) TABLET PO SCH (08:31)
[2021-12-19] MEDS: GABAPENTIN 300 MG CAP PO SCH (08:31)
[2021-12-19] MEDS: risperiDONE 2 MG TAB PO SCH ×2 (08:31→20:07)
[2021-12-19] MEDS: OXcarbazepine 300 MG TAB PO SCH ×2 (08:31→20:07)
[2021-12-19] MEDS: CLOTRIMAZOLE 1% CREAM 30 GM TUBE TOPICAL SCH ×2 (08:32→20:08)
[2021-12-19] MEDS ORDERED: NICOTINE GUM (POLACRILEX) 2 MG GUM BUCCAL PRN (11:28)
--- NOTE | 2021-12-19 14:17 | P.PN ---
Progress Note - Text Progress Note Date: 12/19/21 Interval History: Patient was seen wandering the hallways and was directable and agreeable to speak with typewriter ribbon winder in the office. The patient is vehemently focused on discharge. She states that her daughter is going to graduate tomorrow from high school in the ceremony is at 7 PM. She wishes to be present to watch her walk. The patient vehemently denies any suicidal intention. She reports that she overdosed on the narcotic medication in order to help with her pain. However, the patient does later relented that she overtook some medication because of her interactions with her boyfriend. She is currently denying any suicidal or homicidal ideation, intention, and/or plan. She is currently not reporting any auditory or visual she denies any paranoia or other delusions. The patient is fixated on discharge as well as to have her pain medications increased.. Mental Status Exam: General Appearance: Patient appears to be stated age is alert, directable, and cooperative. Behavior: Patient is calmly seated without any agitated behavior. Demanding. Speech: Patient's speech is fluent and nonpressured. Mood/Affect: Mood is "I swear I'm fine," affect is demanding. Suicidality/Homicidality: Patient vehemently denies any suicidal or homicidal ideation, intention, and/or plan. Perceptions: Patient denies any visual hallucinations and denies any auditory hallucinations Though content/process: There is no evidence of any delusional thought content and thought process is linear and goal-directed. Memory and concentration: AOX3, grossly intact for the purposes of this session Judgment and insight: Poor Vital Signs Temp 98.8 F 12/19/21 05:54 Pulse 100 12/19/21 05:54 Resp 20 12/18/21 21:28 BP 109/74 12/19/21 05:54 Pulse Ox 94 L 12/19/21 05:54 FiO2 Laboratory Results WBC 10.6 k/uL (3.8-10.6) 12/17/21 22:02 RBC 4.85 m/uL (3.80-5.40) 12/17/21 22:02 Hgb 14.5 gm/dL (11.4-16.0) 12/17/21 22:02 Hct 45.2 % (34.0-46.0) 12/17/21 22:02 MCV 93.2 fL (80.0-100.0) 12/17/21 22: MCH 29.8 pg (25.0-35.0) 12/17/21 22: MCHC 32.0 g/dL (31.0-37.0) 12/17/21 22:02 RDW 12.4 % (11.5-15.5) 12/17/21 22:02 Plt Count 302 k/uL (150-450) 12/17/21 22:02 MPV 7.6 12/17/21 22:02 Neutrophils % 58 % 12/17/21 22: Lymphocytes % 33 % 12/17/21 22:02 Monocytes % 5 % 12/17/21 22: Eosinophils % 2 % 12/17/21 22: Basophils % 1 % 12/17/21 22:02 Neutrophils # 6.2 k/uL (1.3-7.7) 12/17/21 22:02 Lymphocytes # 3.5 k/uL (1.0-4.8) 12/17/21 22: Monocytes # 0.6 k/uL (0-1.0) 12/17/21 22: Eosinophils # 0.2 k/uL (0-0.7) 12/17/21 22: Basophils # 0.1 k/uL (0-0.2) 12/17/21 22:02 Sodium 138 mmol/L (137-145) 12/17/21 22:02 Potassium 4.5 mmol/L (3.5-5.1) 12/17/21 22:02 Chloride 104 mmol/L (98-107) 12/17/21 22:02 Carbon Dioxide 27 mmol/L (22-30) 12/17/21 22:02 Anion Gap 7 mmol/L 12/17/21 22:02 BUN 11 mg/dL (7-17) 12/17/21 22:02 Creatinine 0.63 mg/dL (0.52-1.04) 12/17/21 22:02 Est GFR (CKD-EPI)AfAm >90 (>60 ml/min/1.73 sqM) 12/17/21 22:02 Est GFR (CKD-EPI)NonAf >90 (>60 ml/min/1.73 sqM) 12/17/21 22:02 Glucose 101 mg/dL (74-99) H 12/17/21 22:02 Calcium 9.1 mg/dL (8.4-10.2) 12/17/21 22:02 Total Bilirubin 0.3 mg/dL (0.2-1.3) 12/17/21 22:02 AST 24 U/L (14-36) 12/17/21 22:02 ALT 23 U/L (4-34) 12/17/21 22:02 Alkaline Phosphatase 91 U/L (38-126) 12/17/21 22:02 Total Protein 7.2 g/dL (6.3-8.2) 12/17/21 22:02 Albumin 4.7 g/dL (3.5-5.0) 12/17/21 22:02 Urine Color Light Yellow 12/17/21 23:50 Urine Appearance Clear (Clear) 12/17/21 23:50 Urine pH 6.0 (5.0-8.0) 12/17/21 23:50 Ur Specific [place] 1.020 (1.001-1.035) 12/17/21 23:50 Urine Protein Negative (Negative) 12/17/21 23:50 Urine Glucose (UA) Negative (Negative) 12/17/21 23:50 Urine Ketones Negative (Negative) 12/17/21 23:50 Urine Blood Negative (Negative) 12/17/21 23:50 Urine Nitrite Negative (Negative) 12/17/21 23:50 Urine Bilirubin Negative (Negative) 12/17/21 23:50 Urine Urobilinogen <2.0 mg/dL (<2.0) 12/17/21 23:50 Ur Leukocyte Esterase Negative (Negative) 12/17/21 23:50 Salicylates <1.0 mg/dL 12/17/21 22:02 Urine Opiates Screen Detected (NotDetected) H 12/17/21 23:50 Ur Oxycodone Screen Detected (NotDetected) H 12/17/21 23:50 Urine Methadone Screen Not Detected (NotDetected) 12/17/21 23:50 Ur Propoxyphene Screen Not Detected (NotDetected) 12/17/21 23:50 Acetaminophen <10.0 ug/mL 12/18/21 01:20 Ur Barbiturates Screen Not Detected (NotDetected) 12/17/21 23:50 U Tricyclic Antidepress Detected (NotDetected) H 12/17/21 23:50 Ur Phencyclidine Scrn Not Detected (NotDetected) 12/17/21 23:50 Ur Amphetamines Screen Not Detected (NotDetected) 12/17/21 23:50 U Methamphetamines Scrn Not Detected (NotDetected) 12/17/21 23:50 U Benzodiazepines Scrn Not Detected (NotDetected) 12/17/21 23:50 Urine Cocaine Screen Not Detected (NotDetected) 12/17/21 23:50 U Marijuana (THC) Screen Not Detected (NotDetected) 12/17/21 23:50 Serum Alcohol <10 mg/dL 12/17/21 22:02 Coronavirus (PCR) Not Detected (Not Detectd) 12/18/21 00:26 Assessment Bipolar disorder, unspecified Opioid use disorder Cocaine use disorder, in remission Tobacco use disorder Plan: -Patient continues to meet criteria for inpatient psychiatric admission for symptom stabilization and safety. The patient has been petitioned and certified. She plans to defer mental health court. -Medications: Continue gabapentin 800 mg by mouth 3 times a day for off label use for anxiety and for neuropathic pain Continue Trileptal 300 mg by mouth twice a day for mood stabilization Continue Risperdal 2 mg by mouth twice a day for mood stabilization -When necessary Ativan and Haldol for agitation/aggression. -NRT - nicotine patch and Nicorette gum -SW on board for discharge planning. Encouraged the patient to participate in milieu.
[2021-12-19] MEDS: GABAPENTIN 400 MG CAP PO SCH ×2 (15:33→20:08)
[2021-12-19] MEDS: ATORVASTATIN 20 MG TAB PO SCH (20:07)
[2021-12-19] MEDS: BENZOCAINE 20 % GEL 11.9 GM TUBE MM PRN (21:21)
[2021-12-20] MEDS: LORazepam 1 MG TAB PO PRN ×2 (04:01→10:14)
[2021-12-20] MEDS: LEVOTHYROXINE 75 MCG TAB PO SCH (04:42)
[2021-12-20] MEDS: HYDROcodone/APAP 5-325MG 1 EACH TAB PO PRN ×2 (04:42→12:43)
[2021-12-20] MEDS: GABAPENTIN 400 MG CAP PO SCH ×2 (06:06→13:59)
[2021-12-20 06:28] VITALS: BP 123/68; PULSE 91; RESP 18; TEMP 98
[2021-12-20] MEDS: BENZOCAINE 20 % GEL 11.9 GM TUBE MM PRN (07:59)
[2021-12-20] MEDS: risperiDONE 2 MG TAB PO SCH (08:00)
[2021-12-20] MEDS: OXcarbazepine 300 MG TAB PO SCH (08:00)
[2021-12-20] MEDS: PANTOPRAZOLE 40 MG TABLET PO SCH (08:00)
[2021-12-20] MEDS: NICOTINE 14MG/24HR PATCH TRANSDERM SCH (08:01)
[2021-12-20] MEDS: CHOLECALCIFEROL 125 MCG (5000 IU) TABLET PO SCH (09:13)
[2021-12-20] MEDS: CLOTRIMAZOLE 1% CREAM 30 GM TUBE TOPICAL SCH (10:13)
--- NOTE | 2021-12-20 14:07 | P.DS ---
Providers Date of admission: 12/18/21 02:28 Expected date of discharge: 12/20/21 Attending physician: Salvador Mattson MD Consults: 12/18/21 02:33 Consult Physician Routine Consulting Provider: Helene Doran Consult Reason/Comments: H & P Do you want consulting provider notified?: Yes, Notify in am Primary care physician: Linda Titus - Discharge Diagnosis(es) (1) Bipolar II disorder, most recent episode major depressive Current Visit: Yes Status: Acute Priority: High (2) Opiate misuse Current Visit: Yes Status: Acute (3) Cocaine use disorder, severe, in sustained remission Current Visit: No Status: Chronic Priority: Medium (4) Tobacco use disorder Current Visit: Yes Status: Chronic Priority: Medium Hospital Course: Admission HPI: Initial psychiatric evaluation was completed by Dr. Larsen on 12/18/2021 who wrote: "Patient is a 46 year old single, unemployed, on disability, female with history of bipolar disorder who presents to the hospital on a petition after overdosing on [place] and Gabapentin. Patient presented to the hospital following overdose on four each of [place] 7.5- 325 mg and Gabapentin 600 mg. Per petition completed by her boyfriend, patient took a handful of pills in front of her mother and said she hopes to . Patient reports she took these pills because she is in a lot of pain, not because she was trying to kill herself. She admits to being "dramatic" when she took the pills but denies she was suicidal. She reports her family brought her to the hospital so they wouldn't have to "babysit" her. Her insight and judgment are poor. She appears to be an unreliable historian. Patient denies any suicidal or homicidal ideations intent or plan. At this time patient denies any auditory or visual hallucinations. Patient denies any flight of ideas, racing thoughts, and increased in goal directed behavior. She reports she follows at a pain clinic at [address] [place] [address], where she gets her Sugar Run. Patient has poor insight into her actions, appears to utilize defense mechanisms of denial and minimization. She repeats there is nothing wrong with her and demands to go home. She also repeatedly rocks back and forth in her chair, repeatedly states she is in severe pain, and demands her Sugar [place] and Gabapentin. Objectively, she appears to sit/stand, enter/leave the room multiple times without any indication she is in pain of the intensity that she claims. Patient appears to escalate until she was told her [place] and Gabapentin will be ordered, then she calms down and leaves the room. Labs reviewed and CBC, CMP, UA are unremarkable. UDS is positive for opiates, oxycodone and tricyclics. Patient states that she has been previously diagnosed with bipolar disorder. Patient reports previous trials: Trintellix, Cogentin, Depakote, [place], Trileptal, Risperdal, Amitriptyline. Patient was just discharged from [facility] 12/15/2021. She was also hospitalized at [facility] in 2019. She is open with [facility]. Patient reports multiple attempts at suicide in the past. " Hospital course: Upon admission to the unit patient was initially demanding, impulsive, irritable, and confrontational. A second clinical certificate was filled out due to concerns for her ability to stay safe and be compliant with treatment. The patient was recently discharged from the psychiatric unit a few days prior to her readmission. The patient expresses a strong desire for discharge when evaluated by this provider. She reports that her daughter is graduating and walking on the night of 12/20/2021. The patient expresses future and goal orientation and vehemently denies any suicidal or homicidal ideation, intention, and/or plan. The patient states that she only overtook her narcotic medication in order to address her pain and that there was no intention to ever try to kill herself. The patient was educated that overuse of her narcotic medications or her other medications this is at serious risk of irritability and even . She appears to be precontemplative in regards to her abuse of substances. The patient did however defer mental health court and agreed to be on a mental health court order. Significant safety planning occurred with the patient as well as with her significant other Krunal. On the day of discharge, the patient is not reporting any suicidal or homicidal ideation, intention, and/or plan. She is denying any auditory or visual hallucinations. She denies any paranoia or other delusions. The patient has been adherent with her medication is not endorsing any significant side effects. The patient does present with numerous cluster B personality traits and this was discussed at length with the patient. She states that she will follow-up with her outpatient appointments with [facility]. The patient was also counseled on length on importance of medication adherence and to properly take her medications and not to overdose. This provider contacted her outpatient physician Dr Lam's office to inform them of her misuse of her narcotic medication. The patient denies any firearms or weapons. The patient remains at elevated risk of the general population due to her history of substance abuse, nonadherence with controlled substances, and cluster B personality traits. However, the patient has been compliant with medications on the unit and has been directable and future and goal oriented. She has protective factors of the duty to her children and would desire to go to her daughter's graduation on the night of 12/20/2021. Mental status exam: General Appearance: Patient appears to be stated age is alert, pleasant, and cooperative. Patient is in no acute distress and has fair hygiene and grooming Behavior: Patient is calmly seated without any agitated behavior. Speech: Patient's speech is fluent and nonpressured. Mood/Affect: Patient reports their mood is "much better", affect is congruent and euthymic. Suicidality/Homicidality: Patient denies having any suicidal or homicidal ideation intent or plan. Perceptions: Patient denies any auditory or visual hallucinations. Though content/process: There is no evidence of any delusional thought content and thought process is linear and goal-directed. Patient is future oriented. Memory and concentration: AOX3, grossly intact for the purposes of this session. Can spell "WORLD" backwards correctly. Judgment and insight: Improved with guarded prognosis Vital Signs Temp 98.0 F 12/20/21 06:00 Pulse 91 12/20/21 06:00 Resp 18 12/20/21 06:00 BP 123/68 12/20/21 06:00 Pulse Ox 94 L 12/19/21 05:54 FiO2 Laboratory Results WBC 10.6 k/uL (3.8-10.6) 12/17/21 22:02 RBC 4.85 m/uL (3.80-5.40) 12/17/21 22:02 Hgb 14.5 gm/dL (11.4-16.0) 12/17/21 22:02 Hct 45.2 % (34.0-46.0) 12/17/21 22:02 MCV 93.2 fL (80.0-100.0) 12/17/21 22: MCH 29.8 pg (25.0-35.0) 12/17/21 22:02 MCHC 32.0 g/dL (31.0-37.0) 12/17/21 22: RDW 12.4 % (11.5-15.5) 12/17/21 22:02 Plt Count 302 k/uL (150-450) 12/17/21 22: MPV 7.6 12/17/21 22: Neutrophils % 58 % 12/17/21 22:02 Lymphocytes % 33 % 12/17/21 22:02 Monocytes % 5 % 12/17/21 22: Eosinophils % 2 % 12/17/21 22: Basophils % 1 % 12/17/21 22: Neutrophils # 6.2 k/uL (1.3-7.7) 12/17/21 22: Lymphocytes # 3.5 k/uL (1.0-4.8) 12/17/21 22: Monocytes # 0.6 k/uL (0-1.0) 12/17/21 22: Eosinophils # 0.2 k/uL (0-0.7) 12/17/21 22: Basophils # 0.1 k/uL (0-0.2) 12/17/21 22:02 Sodium 138 mmol/L (137-145) 12/17/21 22: Potassium 4.5 mmol/L (3.5-5.1) 12/17/21 22: Chloride 104 mmol/L (98-107) 12/17/21 22: Carbon Dioxide 27 mmol/L (22-30) 12/17/21 22: Anion Gap 7 mmol/L 12/17/21 22:02 BUN 11 mg/dL (7-17) 12/17/21 22: Creatinine 0.63 mg/dL (0.52-1.04) 12/17/21 22: Est GFR (CKD-EPI)AfAm >90 (>60 ml/min/1.73 sqM) 12/17/21 22: Est GFR (CKD-EPI)NonAf >90 (>60 ml/min/1.73 sqM) 12/17/21 22: Glucose 101 mg/dL (74-99) H 12/17/21 22:02 Calcium 9.1 mg/dL (8.4-10.2) 12/17/21 22:02 Total Bilirubin 0.3 mg/dL (0.2-1.3) 12/17/21 22:02 AST 24 U/L (14-36) 12/17/21 22:02 ALT 23 U/L (4-34) 12/17/21 22:02 Alkaline Phosphatase 91 U/L (38-126) 12/17/21 22:02 Total Protein 7.2 g/dL (6.3-8.2) 12/17/21 22:02 Albumin 4.7 g/dL (3.5-5.0) 12/17/21 22:02 Urine Color Light Yellow 12/17/21 23:50 Urine Appearance Clear (Clear) 12/17/21 23:50 Urine pH 6.0 (5.0-8.0) 12/17/21 23:50 Ur Specific [place] 1.020 (1.001-1.035) 12/17/21 23:50 Urine Protein Negative (Negative) 12/17/21 23:50 Urine Glucose (UA) Negative (Negative) 12/17/21 23:50 Urine Ketones Negative (Negative) 12/17/21 23:50 Urine Blood Negative (Negative) 12/17/21 23:50 Urine Nitrite Negative (Negative) 12/17/21 23:50 Urine Bilirubin Negative (Negative) 12/17/21 23:50 Urine Urobilinogen <2.0 mg/dL (<2.0) 12/17/21 23:50 Ur Leukocyte Esterase Negative (Negative) 12/17/21 23:50 Salicylates <1.0 mg/dL 12/17/21 22:02 Urine Opiates Screen Detected (NotDetected) H 12/17/21 23:50 Ur Oxycodone Screen Detected (NotDetected) H 12/17/21 23:50 Urine Methadone Screen Not Detected (NotDetected) 12/17/21 23:50 Ur Propoxyphene Screen Not Detected (NotDetected) 12/17/21 23:50 Acetaminophen <10.0 ug/mL 12/18/21 01:20 Ur Barbiturates Screen Not Detected (NotDetected) 12/17/21 23:50 U Tricyclic Antidepress Detected (NotDetected) H 12/17/21 23:50 Ur Phencyclidine Scrn Not Detected (NotDetected) 12/17/21 23:50 Ur Amphetamines Screen Not Detected (NotDetected) 12/17/21 23:50 U Methamphetamines Scrn Not Detected (NotDetected) 12/17/21 23:50 U Benzodiazepines Scrn Not Detected (NotDetected) 12/17/21 23:50 Urine Cocaine Screen Not Detected (NotDetected) 12/17/21 23:50 U Marijuana (THC) Screen Not Detected (NotDetected) 12/17/21 23:50 Serum Alcohol <10 mg/dL 12/17/21 22:02 Coronavirus (PCR) Not Detected (Not Detectd) 12/18/21 00:26 Allergies Allergy/AdvReac Type Severity Reaction Status Date / Time cortisone [Cortisone] Allergy "FELT LIKE Verified 12/17/21 21:46 THROAT WAS CLOSING UP" latex Allergy Rash/Hives, Verified 12/17/21 21:46 ITCHING STEROIDS Allergy "FELT LIKE Uncoded 12/17/21 21:46 THROAT WAS CLOSING UP" Impression: Bipolar 2 disorder, depressive episode Opiate misuse Cocaine use disorder, in remission Tobacco use disorder Plan: -Continue with discharge today as patient has improved and stabilized psychiatrically and is not currently an imminent threat to self and/or others. Patient will remain at chronically elevated risk for harm to self and/or others due to her impulsivity and substance abuse. -Continue medications: Continue Risperdal 2 mg by mouth twice a day for mood stabilization Trileptal 300 mg by mouth twice a day for mood stabilization Neurontin 800 mg by mouth 3 times a day for 15 days with one refill for neuropathic pain and off label use for anxiety -Patient was counseled on the need for medication compliance and appropriate follow-up at mental health and also primary care for medical issues. Patient verbalized understanding and agreed. -Social work to arrange for and conduct family meeting to ensure safety upon discharge and answer any questions/concerns. Social work also to arrange for patients follow up appointments with [facility] for psychiatric care along with follow up with primary care provider. -Patient counseled on abstaining from recreational drugs and marijuana and alcohol. Was informed/educated on the adverse effects on their physical and mental health. Patient verbally agreed and understood. Patient was offered substance abuse treatment however declined at this time. -Patient was instructed to return to the hospital or seek immediate medical care if their psychiatric or medical symptoms do worsen or reoccur. -Patient's outpatient provider for pain management was made aware of the risky medication practice of the patient. -Psychoeducation and supportive therapy provided to patient. Risks and benefits of pharmacological treatment versus the risks and benefits of nontreatment weight and discussed. Informed consent discussion held. Common side effects of psychotropics discussed such as, but not limited to headache, GI disturbance, sexual dysfunction, movement disorders, sedation, and orthostatic hypotension. Life threatening and blackbox warnings of prescribed medications also discussed. Potential risks of operating a vehicle or heavy machinery discussed with patient at length. Advised on importance of compliance and a reliable and responsible manner. Patient advised to review FDA consumer labeling of all medications prior to taking. Patient verbalized understanding of potential risks, and agrees with current treatment plan. Patient advised to medically contact physician/emergency personnel if any acute changes in condition occur. Patient Condition at Discharge: Stable Plan - Discharge Summary Discharge Rx Participant: No New Discharge Prescriptions: New Gabapentin [Neurontin] 800 mg PO TID 15 Days #45 cap Continue Levothyroxine Sodium [Synthroid] 75 mcg PO DAILY Albuterol Inhaler [Ventolin Hfa Inhaler] 2 puff INHALATION RT-QID PRN PRN Reason: Shortness Of Breath Omeprazole 40 mg PO AC-BID Clotrimazole [Lotrimin AF] 1 applic TOPICAL PRN PRN Reason: rash under breast HYDROcodone/APAP 5-325MG [[place] 5-325] 1 each PO TID PRN tab PRN Reason: Pain OXcarbazepine [Trileptal] 300 mg PO BID 30 Days tab Albuterol Nebulized [Ventolin Nebulized] 2.5 mg INHALATION RT-QID PRN PRN Reason: Shortness Of Breath Atorvastatin Calcium [Lipitor] 20 mg PO HS Cholecalciferol [Vitamin D3 (125 Mcg = 5000 Iu)] 125 mcg PO DAILY risperiDONE [RisperDAL] 2 mg PO BID 14 Days tab Discontinued Gabapentin [Neurontin] 800 mg PO TID #45 cap Discharge Medication List Levothyroxine Sodium [Synthroid] 75 mcg PO DAILY 06/04/18 [History] Albuterol Inhaler [Ventolin Hfa Inhaler] 2 puff INHALATION RT-QID PRN 12/13/21 [History] Albuterol Nebulized [Ventolin Nebulized] 2.5 mg INHALATION RT-QID PRN 12/13/21 [History] Atorvastatin Calcium [Lipitor] 20 mg PO HS 12/13/21 [History] Cholecalciferol [Vitamin D3 (125 Mcg = 5000 Iu)] 125 mcg PO DAILY 12/13/21 [History] Clotrimazole [Lotrimin AF] 1 applic TOPICAL PRN 12/13/21 [History] Omeprazole 40 mg PO AC-BID 12/13/21 [History] HYDROcodone/APAP 5-325MG [[place] 5-325] 1 each PO TID PRN tab 12/15/21 [Rx] OXcarbazepine [Trileptal] 300 mg PO BID 30 Days tab 12/15/21 [Rx] risperiDONE [RisperDAL] 2 mg PO BID 14 Days tab 12/15/21 [Rx] Gabapentin [Neurontin] 800 mg PO TID 15 Days #45 cap 12/20/21 [Rx] Follow up Appointment(s)/Referral(s): Linda Titus MD [Primary Care Provider] - 1-2 days Patient Instructions/Handouts: How to Stop Smoking (DC), Bipolar Disorder (DC) Activity/Diet/Wound Care/Special Instructions: Activity and diet as tolerated. Avoid the use of street drugs and alcohol. Take all medications as prescribed. When you are in need of refills on your medications please contact your medical provider and/or outpatient psychiatrist to have this done. Please go to scheduled outpatient appointment for aftercare treatment. If symptoms return or become worse, call the crisis line at [phone] and/or go to the nearest emergency room for evaluation Discharge Disposition: HOME SELF-CARE
== END 2021-12-20 16:01 | disposition home or self-care (01) | DRG 885 ==
LOC: EC 21:25 → 3MHU 12-18 02:28
PROVIDERS: ADMIT Psychiatry & Neurology Psychiatry; ATTEND Psychiatry & Neurology Psychiatry
DX: F31.81 Bipolar II disorder (principal); E03.9 Hypothyroidism, unspecified; T40.2X2A Poisoning by other opioids, intentional self-harm, initial encounter; T42.6X2A Poisoning by other antiepileptic and sedative-hypnotic drugs, intentional self-harm, initial encounter; F11.10 Opioid abuse, uncomplicated; F14.21 Cocaine dependence, in remission; J44.9 Chronic obstructive pulmonary disease, unspecified; Z20.822 Contact with and (suspected) exposure to COVID-19; F41.0 Panic disorder [episodic paroxysmal anxiety]; G62.9 Polyneuropathy, unspecified; G89.29 Other chronic pain; M54.9 Dorsalgia, unspecified; F17.210 Nicotine dependence, cigarettes, uncomplicated; Z71.6 Tobacco abuse counseling; Z79.890 Hormone replacement therapy; Z79.899 Other long term (current) drug therapy; Z87.19 Personal history of other diseases of the digestive system; Z87.42 Personal history of other diseases of the female genital tract; Z87.2 Personal history of diseases of the skin and subcutaneous tissue; Z98.51 Tubal ligation status; Z56.0 Unemployment, unspecified; Z98.890 Other specified postprocedural states; Z88.5 Allergy status to narcotic agent; Z88.8 Allergy status to other drugs, medicaments and biological substances; Z91.040 Latex allergy status; Z80.3 Family history of malignant neoplasm of breast
CPT/HCPCS: 36415; 80053; 80143; 80179; 80306; 80320; 81003; 82075; 85025; 87635; 93005; 99285

== ENCOUNTER → 2022-01-09 | Outpatient (CLI) | payer OTHER ==
--- NOTE | 2022-01-10 09:13 | US ---
EXAMINATION TYPE: US kidneys/renal and bladder DATE OF EXAM: 01/09/2022 COMPARISON: US & MRI 2021 CLINICAL HISTORY: N28.1 Renal cyst. Patient states there was a renal cyst seen on her previous MRI EXAM MEASUREMENTS: Right Kidney: 11.5 x 4.6 x 4.4 cm Left Kidney: 12.0 x 5.2 x 4.5 cm Right Kidney: No hydronephrosis or masses seen Left Kidney: No hydronephrosis or masses seen, inferior pole limited by overlying bowel gas Bladder: wnl Bilateral Jets seen: No IMPRESSION: 1. Normal renal ultrasound. 2. There is some limitation in the inferior pole left kidney
== END | disposition home or self-care (01) ==
LOC: RADUSWWP 15:29
PROVIDERS: ATTEND Urology
DX: N28.1 Cyst of kidney, acquired (principal)
CPT/HCPCS: 76770

== ENCOUNTER → 2022-11-27 | Outpatient (CLI) | payer OTHER ==
--- NOTE | 2022-11-28 07:29 | US ---
EXAMINATION TYPE: US pelvic complete DATE OF EXAM: 11/27/2022 COMPARISON: CT 10/15/2012 CLINICAL INDICATION: Female, 47 years old with history of R10.2 PELVIC PAIN; rt sided pelvic pain x 1 .5 months TECHNIQUE: Transabdominal (TA). Transabdominal sonographic images of the pelvis were acquired. Pat ient denied TV exam Date of LMP: post- elisha EXAM MEASUREMENTS: Uterus: 7.7 x 4.0 x 3.7 cm Endometrial Stripe: 0.5 cm Right Ovary: 3.0 x 1.8 x 2.0 cm Left Ovary: Surgically absent 1. Uterus: Anteverted superior uterus appears heterogenous 2. Endometrium: wnl 3. Right Ovary: wnl 4. Left Ovary: Surgically absent 5. Bilateral Adnexa: Obscured by overlying bowel gas 6. Posterior cul-de-sac: wnl Bladder not fully distended and patient unable to tolerate transducer pressure to better image pelvic structures. Patient denied transvaginal exam IMPRESSION: 1. Limited transabdominal only evaluation, no evidence for acute process. 2. Poor visualization of the endometrium.
== END | disposition home or self-care (01) ==
LOC: RADUSWWP 16:21
PROVIDERS: ATTEND Obstetrics & Gynecology
DX: R10.2 Pelvic and perineal pain (principal)
CPT/HCPCS: 76856

== ENCOUNTER → 2023-01-01 | Outpatient (CLI) | payer OTHER ==
--- NOTE | 2023-01-02 16:30 | MM ---
Reason for Exam: Screening (asymptomatic). Last mammogram was performed 1 year(s) and 2 month(s) ago. Patient History: Menarche at age 13. First Full-Term at age 18. Left ovary removed at age 21. Mother had breast cancer, age 30. Last menstrual period: 01/24/2017 Risk Values: [place] 5 year model risk: 1.6%. NCI Lifetime model risk: 16.9%. Prior Study Comparison: 04/18/2018 Bilateral Screening Mammogram, [facility]. 03/10/2020 Bilateral Screening Mammogram, [facility]. 11/07/2021 Bilateral Screening Mammogram, [facility]. Tissue Density: There are scattered fibroglandular densities. Findings: Analyzed By CAD. Pattern appears symmetrical and stable. No significant interval change is evident. No suspicious groups of microcalcifications, spiculated or lobular masses, architectural distortion or other secondary signs of malignancy are mammographically apparent. Overall Assessment: Benign, BI-RAD 2 Management: Screening Mammogram of both breasts in 1 year. A negative mammogram report should not preclude additional follow up of suspicious palpable abnormalities. Patient should continue monthly self breast exam. A clinical breast exam by your physician is recommended on an annual basis and results should be correlated with mammographic findings. Electronically signed and approved by: Justino Diehl D.O. Radiologis
== END | disposition home or self-care (01) ==
LOC: RADMAMWWP 13:22
PROVIDERS: ATTEND Obstetrics & Gynecology
DX: Z12.31 Encounter for screening mammogram for malignant neoplasm of breast (principal); Z80.3 Family history of malignant neoplasm of breast
CPT/HCPCS: 77063; 77067

== ENCOUNTER → 2023-03-28 | Outpatient (CLI) | payer OTHER ==
--- NOTE | 2023-03-28 11:00 | P.SLEEP ---
History of Present Illness DATE: 03/28/2023 CONSULTATION/NEW PATIENT EVALUATION HISTORY OF PRESENT ILLNESS/SLEEP-WAKE EVALUATION: 47-year-old lady had been ev aluated in the sleep center for possible obstructive sleep apnea hypopnea syndrome. SLEEP SCHEDULE: Usually sleep schedule from 810 PM until 7 AM. FALLING ASLEEP: Sometimes patient has problems with falling asleep. DURING SLEEP: Patient snores, has witnessed episodes of stop breathing during the sleep, grinding teeth, has multiple awakenings with dry mouth, panic attacks, sweatings. Positive history of sleep walking. No history of hypnogogical hallucinations, sleep paralysis, or cataplexy. DURING THE DAY/WAKE STATE: In the morning patient wake up tired, has difficulties to pay attention, falling asleep during the day. Patient has problems with memory, concentration, irritability, claustrophobia. [place] sleepiness scale is 7. Patient may take 2 naps during the day. PAST MEDICAL HISTORY: Depression, anxiety, fibromyalgia, hypothyroidism, asthma, headaches. PAST SURGICAL HISTORY: Uterus ablation. MEDICATIONS: Synthroid, Prilosec, albuterol, Trileptal, Nubieber, risperidone. SOCIAL HISTORY: Positive history of smoking for about 25 years, presently decreased 2-3 cigarettes a day, alcohol none at the present time. FAMILY HISTORY: Heart problems, fibromyalgia, cancer, thyroid problems, mood disorders. REVIEW OF SYSTEMS: Snoring, multiple awakenings from sleep, episodes of sleep walking. No fevers. No double vision. No recent chest pain. No shortness of breath. No abdominal pain. No bleeding episodes. No blood in urine. No seizure episodes. PHYSICAL EXAMINATION: GENERAL: A pleasant patient without any distress. VITAL SIGNS: BP 98/66, HR 83, RR 16, weight 192.0 pounds, height 5 foot 3.5 inches, body mass index 33.4, temperature 97.3, oxygen saturation at room air 96%. HEENT: PERRLA, EOMI. Evaluation of oropharynx showed tongue protrudes midline, low position of soft palate Mallampati 4. NECK: Supple. No JVD. Thyroid is not palpable. 15.5 inches in circumference. LUNGS: Clear to percussion and to auscultation. Good air exchange. No wheezing or rhonchi. HEART: S1, S2 regular. No murmurs, gallops or rubs. ABDOMEN: Soft and nontender. Bowel sounds are present. No organomegaly appreciated. EXTREMITIES: No clubbing or cyanosis. [employer]ED [employer]SEM[employer]ER: Awake, alert, and oriented x3. Cranial nerves 2 to 7 intact. There is no fasciculation or atrophy noted. No focal deficits observed. ASSESSMENT: 1. Snoring, witnessed episodes of stop breathing during the sleep, multiple awakenings from sleep, extremely low position of soft palate Mallampati 4. Obstructive sleep apnea hypopnea syndrome. 2. Mild obesity BMI 33.4. 3. Depression. 4. anxiety. 5 fibromyalgia. 6 . Asthma. 7. Headaches. 8. Hypothyroidism. 9 . History of episodes of sleepwalking. PLAN: 1. Polysomnography for evaluation of patient's breathing during sleep. 2. CPAP/BiPAP titration if sleep study confirms obstructive sleep apnea- hypopnea syndrome. 3. Preferable position during sleep on the side. 4. No driving if patient feels any sleepiness. Patient is aware of civil and criminal liability for unsafe driving. 5. Sleep hygiene with regular sleep time for at least 7.5-8 hours. 6. Precautions related to possible parasomnia. No excess to the fire, sharp objects, guns during sleep time. Thank you very much for referring this patient for consultation. Sincerely, Kush Alvarez MD, PhD, FAASM. Diplomat of [place] [employer], Sleep Medicine Board by [place] [employer] [place] [employer] Hay Buckler of [facility] [place] Past Medical History Past Medical History: Asthma, COPD, Musculoskeletal Disorder, Thyroid Disorder Additional Past Medical History / Comment(s): BACK PAIN, History of Any Multi-Drug Resistant Organisms: None Reported Past Surgical History: Hernia Repair, Tubal Ligation, Uterine Ablation Additional Past Surgical History / Comment(s): CYST ON FACE REMOVED, OVARY REMOVED, HIATAL HERNIA REPAIR Past Anesthesia/Blood Transfusion Reactions: No Reported Reaction, Motion Sickness Past Psychological History: Anxiety, Bipolar, Panic Disorder Smoking Status: Current every day smoker - Past Family History Mother Family Medical History: Cancer Additional Family Medical History / Comment(s): BREAST Medications and Allergies Home Medications Medication Instructions Recorded Confirmed Type Levothyroxine Sodium [Synthroid] 75 mcg PO DAILY 06/04/18 12/13/21 History Albuterol Inhaler [Ventolin Hfa 2 puff INHALATION RT-QID PRN 12/13/21 12/13/21 History Inhaler] Albuterol Nebulized [Ventolin 2.5 mg INHALATION RT-QID PRN 12/13/21 12/13/21 History Nebulized] Atorvastatin Calcium [Lipitor] 20 mg PO HS 12/13/21 12/13/21 History Cholecalciferol [Vitamin D3 (125 125 mcg PO DAILY 12/13/21 12/13/21 History Mcg = 5000 Iu)] Clotrimazole [Lotrimin AF] 1 applic TOPICAL PRN 12/13/21 12/13/21 History Omeprazole 40 mg PO AC-BID 12/13/21 12/13/21 History HYDROcodone/APAP 5-325MG [[place] 1 each PO TID PRN tab 12/15/21 Rx 5-325] OXcarbazepine [Trileptal] 300 mg PO BID 30 Days tab 12/15/21 Rx risperiDONE [RisperDAL] 2 mg PO BID 14 Days tab 12/15/21 12/18/21 Rx Gabapentin [Neurontin] 800 mg PO TID 15 Days #45 cap 12/20/21 Rx Allergies Allergy/AdvReac Type Severity Reaction Status Date / Time cortisone [Cortisone] Allergy "FELT LIKE Verified 08/21/22 13:50 THROAT WAS CLOSING UP" latex Allergy Rash/Hives, Verified 08/21/22 13:50 ITCHING STEROIDS Allergy "FELT LIKE Uncoded 08/21/22 13:50 THROAT WAS CLOSING UP" Sleep Note - Sleep Note Sleep Note: Temperature: Pulse Rate: Respiratory Rate: Blood Pressure: SpO2: Height: Weight: BMI: Neck Circumference:
== END ==
LOC: 3 N SLEEP 10:14
PROVIDERS: ATTEND Internal Medicine
DX: G47.33 Obstructive sleep apnea (adult) (pediatric) (principal); E66.9 Obesity, unspecified; F32.A Depression, unspecified; F41.9 Anxiety disorder, unspecified; J45.909 Unspecified asthma, uncomplicated; R51.9 Headache, unspecified; E03.9 Hypothyroidism, unspecified; M79.7 Fibromyalgia; F17.200 Nicotine dependence, unspecified, uncomplicated; Z68.33 Body mass index [BMI] 33.0-33.9, adult; Z79.890 Hormone replacement therapy; Z88.8 Allergy status to other drugs, medicaments and biological substances; Z91.040 Latex allergy status; Z79.51 Long term (current) use of inhaled steroids
CPT/HCPCS: 99211

== ENCOUNTER 2023-05-07 19:50 | Outpatient (CLI) | payer OTHER ==
--- NOTE | 2023-05-08 18:09 | P.PCN ---
Description of Procedure: POLYSOMNOGRAPHY REPORT PROCEDURE(S)/DATE(S): Polysomnography 05/07/2023 CLINICAL: Patient has been seen in the sleep center for evaluation of obstructive sleep apnea-hypopnea syndrome. Please see my consultation. Sleep study has been done for evaluation of patient breathing during the sleep. PROCEDURE: The standard montage for clinical polysomnography included the electroencephalogram, the electrooculogram, the mentalis surface electromyography and Lead II cardiography. The respiratory battery consisted of measurements of nasal/buccal air flow, pressure transducer measurements from nose, thoracic and/or abdominal effort and intercostal surface electromyography. Video monitoring has been done to check for any parasomnia events. Nocturnal oxyhemoglobin saturations were obtained by finger oximetry. Step-ladd titration with positive airway pressure was utilized to control the respiratory events, if necessary. RESULTS: During the diagnostic sleep study sleep efficiency was high 95.6 %. Latency to sleep onset was platelet short 9.0 min. Sleep architecture showed st age NI was short 1.9 %, Delta sleep was was normal 20.1 %, REM sleep was normal 23.6 %. Respiratory channel showed 0 obstructive apneas, 0 mixed apneas, 0 central apneas, 1 hypopneas with lowest oxygen level 90 %. Total apnea hypopnea index was 0.1. Heart rate was in the range between 66 and 74, average 70. EMG showed 0 periodic limb movements per hour with 0 micro-arousals per hour. IMPRESSIONS: 1. No significant respiratory abnormalities have been documented during the sleep study, normal oxygenation during sleep. 2. No significant periodic limb movements have been documented. Please see other impressions from consultation PLAN: 1.Sleep hygiene with regular time in bed for at least 7-1/2 hours . 2. Losing weight program. 3. No driving if feeling sleepiness. 4. I will see patient for follow up visit to explain results of the test and recommendations. Thank you very much for allowing me to participate in the management of your patient. Sincerely, Kush Alvarez MD, PhD, FAASM. Diplomat of [place] [employer], Sleep Medicine Board by [place] [employer] [facility] [place]
== END 2023-05-08 05:10 | disposition home or self-care (01) ==
LOC: 3 N SLEEP 19:50
PROVIDERS: ATTEND Internal Medicine
DX: G47.33 Obstructive sleep apnea (adult) (pediatric) (principal); F17.200 Nicotine dependence, unspecified, uncomplicated; Z88.8 Allergy status to other drugs, medicaments and biological substances; Z91.040 Latex allergy status
CPT/HCPCS: 95810

== ENCOUNTER → 2023-07-04 | Outpatient (CLI) | payer OTHER ==
--- NOTE | 2023-07-04 12:15 | P.PN ---
Subjective DATE: 07/04/2023 FOLLOW UP VISIT. Patient returned to sleep center for follow-up visit to discuss results of polysomnogram and following plan. I discuss results of polysomnogram with patient and family in details. No significant respiratory abnormalities during sleep. Normal oxygenation during sleep. Patient continued to feel significant sleepiness during the day, takes several naps, falling asleep. [place] Sleepiness Scale today is in very high range of 20. Medications: Prilosec, Synthroid, albuterol, Trileptal, risperidone, D Lo During physical exam: GENERAL: A pleasant patient without any distress. VITAL SIGNS: BP 122/86, HR 92, RR 12 , weight 189.2, temperature 98.1, oxygen saturation at room air 96% . HEENT: PERRLA, EOMI. NECK: Supple. No JVD. LUNGS: Clear to percussion and to auscultation. Good air exchange. No wheezing or rhonchi. HEART: S1, S2 regular. ABDOMEN: Soft and nontender. EXTREMITIES: No clubbing or cyanosis. STATISTICAL SECRETARY: Awake, alert, and oriented x3. No focal deficit. Impressions: 1. no significant respiratory abnormalities have been documented during the sleep study 2. no significant periodic limb movements. 3. significant excessive daytime sleepiness with [place] Sleepiness Scale 20 dictated necessity for differential diagnosis of hypersomnia and narcolepsy . 4. .hypothyroidism 5. Depression. 6. anxiety. 7. mild obesity, BMI 32.4. 8. asthma. 9. history of sleep walking episodes. 10 history of headaches Plan: 1. Multiple sleep latency test for objective for ablation symptoms of significant excessive daytime sleepiness 2. Sleep hygiene with regular time in bed for at least 8 hours. 3. following plan after reading sleep study 4. Precautions related to driving. No driving if feel any sleepiness. Patient is aware about civil and criminal liability for unsafe driving, promised to follow recommendations. Thank you very much for allowing me to participate in the management of your patient. Kush Alvarez MD, PhD, FAASM. Diplomat of [place] [employer], Sleep Medicine Board by [place] [employer] Drinking Water Technician of [facility] [place]
== END ==
LOC: 3 N SLEEP 11:33
PROVIDERS: ATTEND Internal Medicine
DX: G47.61 Periodic limb movement disorder (principal); E03.9 Hypothyroidism, unspecified; F32.A Depression, unspecified; F41.9 Anxiety disorder, unspecified; E66.9 Obesity, unspecified; G47.8 Other sleep disorders; F17.200 Nicotine dependence, unspecified, uncomplicated; J45.909 Unspecified asthma, uncomplicated; Z68.32 Body mass index [BMI] 32.0-32.9, adult; Z86.69 Personal history of other diseases of the nervous system and sense organs; Z91.040 Latex allergy status; Z88.8 Allergy status to other drugs, medicaments and biological substances
CPT/HCPCS: 99212

== ENCOUNTER 2024-07-18 03:56 | Emergency (ER) | payer OTHER ==
[2024-07-18 04:06] VITALS: BP 136/86; PULSE 92; RESP 16; TEMP 97.6
--- NOTE | 2024-07-18 04:46 | ED ---
General Adult HPI - General Chief complaint: Back Pain/Injury Stated complaint: difficulty breathing Time Seen by Provider: 07/18/24 04:13 Source: patient Mode of arrival: ambulatory Limitations: no limitations - History of Present Illness Initial comments: Patient is a 49-year-old female past medical history of chronic back pain presenting today for right back and rib pain about 10 days after a fall. 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 Patient states has been taking her home [place] and has had to take extra doses of it due to pain so she ran out of her [place] prescription early. Last dose of [place] was yesterday. She is set to diamond picker a refill of her norco later today. Pain worsens with deep breathing but otherwise denies shortness of breath, chest pain, hemoptysis, cough productive of sputum, vomiting, hematemesis, hematochezia, melena, hematuria, fevers, urinary incontinence, stool incontinence or saddle anesthesia. - Related Data Home Medications Medication Instructions Recorded Confirmed Levothyroxine Sodium [Synthroid] 75 mcg PO DAILY 06/04/18 12/13/21 Albuterol Inhaler [Ventolin Hfa 2 puff INHALATION RT-QID PRN 12/13/21 12/13/21 Inhaler] Albuterol Nebulized [Ventolin 2.5 mg INHALATION RT-QID PRN 12/13/21 12/13/21 Nebulized] Atorvastatin Calcium [Lipitor] 20 mg PO HS 12/13/21 12/13/21 Cholecalciferol [Vitamin D3 (125 125 mcg PO DAILY 12/13/21 12/13/21 Mcg = 5000 Iu)] Clotrimazole [Lotrimin AF] 1 applic TOPICAL PRN 12/13/21 12/13/21 Omeprazole 40 mg PO AC-BID 12/13/21 12/13/21 Previous Rx's Medication Instructions Recorded HYDROcodone/APAP 5-325MG [[place] 1 each PO TID PRN tab 12/15/21 5-325] OXcarbazepine [Trileptal] 300 mg PO BID 30 Days tab 12/15/21 risperiDONE [RisperDAL] 2 mg PO BID 14 Days tab 12/15/21 Gabapentin [Neurontin] 800 mg PO TID 15 Days #45 cap 12/20/21 Ibuprofen 600 mg PO Q8H PRN #30 tab 07/18/24 Allergies Allergy/AdvReac Type Severity Reaction Status Date / Time cortisone [Cortisone] Allergy "FELT LIKE Verified 07/18/24 04:04 THROAT WAS CLOSING UP" latex Allergy Rash/Hives, Verified 07/18/24 04:04 ITCHING STEROIDS Allergy "FELT LIKE Uncoded 07/18/24 04:04 THROAT WAS CLOSING UP" Review of Systems ROS Statement: Those systems with pertinent positive or pertinent negative responses have been documented in the HPI. ROS Other: All systems not noted in ROS Statement are negative. Past Medical History Past Medical History: Asthma, COPD, Musculoskeletal Disorder, Thyroid Disorder Additional Past Medical History / Comment(s): BACK PAIN, History of Any Multi-Drug Resistant Organisms: None Reported Past Surgical History: Hernia Repair, Tubal Ligation, Uterine Ablation Additional Past Surgical History / Comment(s): CYST ON FACE REMOVED, OVARY REMOVED, HIATAL HERNIA REPAIR Past Anesthesia/Blood Transfusion Reactions: No Reported Reaction, Motion Sickness Past Psychological History: Anxiety, Bipolar, Panic Disorder Smoking Status: Current every day smoker Past Alcohol Use History: None Reported Past Drug Use History: None Reported - Past Family History Mother Family Medical History: Cancer Additional Family Medical History / Comment(s): BREAST General Exam - General Exam Comments Initial Comments: PE: CONSTITUTIONAL: No apparent distress, well appearing, though uncomfortable SKIN: Warm, dry, no jaundice, hives or petechiae. No bruising, hematomas or lacerations overlyng area of pain EYES: Pupils are equally round, extraocular movements intact without nystagmus, clear conjunctiva, non-icteric sclera HENT: Normocephalic, atraumatic, moist mucus membranes, oropharynx clear without exudates NECK: , Full range of motion, normal appearance, no midline spinal TTP PULMONARY: Clear to auscultation without wheezes, rhonchi, or rales, normal excursion, no accessory muscle use and no stridor CARDIOVASCULAR: Regular rate, rhythm, normal S1 and S2. No appreciated murmurs, rubs or gallops. Strong radial pulses with intact distal perfusion. No lower extremity edema. GASTROINTESTINAL: Soft, active bowel sounds throughout, non-tender, non- distended, no palpable masses, no rebound or guarding. No hepatosplenomegaly GENITOURINARY: MUSCULOSKELETAL: Extremities have no gross deformity, no edema, redness, or swelling. A chest wall exam was performed w/ both pt's and REJI Neumann, as film booker, chest appears atraumatic, TTP along lateral right breast, lateral right rib cage, extending back to TTP along ribs just lateral to the lower thoracic spine, no midline spinal TTP NEUROLOGIC:_a/o x 3, GCS 15, normal mentation and speech. Moves all extremities x 4 without motor or sensory deficit, pt does endorse pain towards right side back w/ hip flexion PSYCHIATRIC:_normal mood and affect, thought process is clear and linear Limitations: no limitations Course Vital Signs 07/18/24 04:04 Temperature 97.6 F Pulse Rate 92 Respiratory 16 Rate Blood Pressure 136/86 O2 Sat by Pulse 100 Oximetry Medical Decision Making - Medical Decision Making Was pt. sent in by a medical professional or institution (, PA, FARM SUPERVISOR, urgent care, hospital, or [facility]...) When possible be specific @ -No Did you speak to anyone other than the patient for history (EMS, parent, family, police, friend...)? What history was obtained from this source @ -No Did you review nursing and triage notes (agree or disagree)? Why? @ -I reviewed nursing and triage notes Were old charts reviewed (outside hosp., previous admission, EMS record, old EKG, old radiological studies, urgent care reports/EKG's, [facility] records)? Report findings @ -Medical records reviewed Differential Diagnosis (chest pain, altered mental status, abdominal pain women, abdominal pain men, vaginal bleeding, weakness, fever, dyspnea, syncope, headache, dizziness, GI bleed, back pain, seizure, CVA, palpatations, mental health, musculoskeletal)? @ -Differential Musculoskeletal Muscular strain, contusion, ligament sprain, fracture, arthritis, septic arthritis, bursitis, cellulitis, muscle spasm, nerve compression, .. This is not meant to be in all inclusive list EKG interpreted by me (3pts min.). @ -As above X-rays interpreted by me (1pt min.). @ -I do not see evidence of pneumothorax, pleural effusions, consolidations or fracture CT interpreted by me (1pt min.). @ -None done U/S interpreted by me (1pt. min.). @ -None done What testing was considered but not performed or refused? (CT, X-rays, U/S, labs)? Why? @ -Considered CT of the chest to assess for hematoma formation however patient has no visible or palpable hematomas on exam, LCTAB, Vitals w/in acceptable limits What meds were considered but not given or refused? Why? @Norflex was offered however patient politely refused Did you discuss the management of the patient with other professionals (professionals i.e. , PA, FARM SUPERVISOR, lab, RT, psych nurse, family welfare social work professor, commercial or institutional cleaner, teacher, fiscal officer, pillowcase cutter)? Give summary @ -No Was smoking cessation discussed for >3mins.? @ -No Was critical care preformed (if so, how long)? @ -No Were there social determinants of health that impacted care today? How? (Homelessness, low income, unemployed, alcoholism, drug addiction, transportation, low edu. Level, literacy, decrease access to med. care, detention, rehab)? @ -No Was there de-escalation of care discussed even if they declined (Discuss DNR or withdrawal of care, Hospice)? @ -No What co-morbidities impacted this encounter? (DM, HTN, Smoking, COPD, CAD, Cancer, CVA, ARF, Chemo, Hep., AIDS, mental health diagnosis, sleep apnea, morbid obesity)? Chronic back pain Was patient admitted / discharged? Hospital course, mention meds given and route, prescriptions, significant lab abnormalities, going to OR and other pertinent info. @ Discharge- Pt presents today about 10 days after fall on ice for right back, right rib pain. Ran out of her home [place] 2 days ago. VS w/in acceptable limits on arrival. Patient has no red flag symptoms of back pain. She has no palpable hematomas or areas of fluctuance on exam. No overlying skin changes. Lungs are clear to auscultation bilaterally, no midline spinal tenderness to palpation. TTP postalateral and lateral right ribs, I discussed with her obtaining repeat x-ray of her ribs to assess for signs of rib fracture or development of pleural effusion or pneumonia. Additionally ordered Zanaflex, Tylenol, IM morphine, lidocaine patch. Patient is agreeable plan of care. On reassessment patient states that her pain only minimally improved. Offered her IM Norflex and Toradol. She was accepting of the Toradol however ultimately declined Norflex. Pt concerned there is "something else going on" like janki was "floating in her breast" so I performed a bedside US along her areas of discomfort, I did not see any free fluid in the paracolic gutter, there is no hydronephrosis, no free fluid around the liver, no pericardial effusion, no fluid pockets along lateral right breast. X-ray ultimately read as fractures of the eighth and ninth ribs. Updated patient and discussed with patient plan for discharge, pain control with NSAIDs, tylenol, lidocaine patches. Pt provided with incentive spirometer and instructed on its use as well. In my medical judgment there is currently no evidence of an immediate life- threatening or surgical condition. Discharge is therefore indicated at this time. Discharge treatment instructions, follow up instructions, and appropriate emergency department return precautions were discussed with the patient and/or medical decision maker. Patient and/or medical decision maker expressed understanding of and agreed with the treatment plan, follow up instructions, and emergency department return precaution. All patient's and/or medical decision maker's questions were answered. The patient was advised that a small risk still exists that a serious condition could develop and was therefore instructed to return to the ED for any changes in symptoms, persistent symptoms, inability to obtain proper follow-up or for any further concerns. Patient received verbal and written instructions for this condition. Undiagnosed new problem with uncertain prognosis? @ -No Drug Therapy requiring intensive monitoring for toxicity (Heparin, Nitro, Insulin, Cardizem)? @ -No Were any procedures done? @ -No Diagnosis/symptom? @Rib fractures Acute, or Chronic, or Acute on Chronic? @ acute Uncomplicated (without systemic symptoms) or Complicated (systemic symptoms)? @uncomplicated Side effects of treatment? @ -No Exacerbation, Progression, or Severe Exacerbation? @ -No Poses a threat to life or bodily function? How? (Chest pain, [place], [place], pneumonia, PE, COPD, DKA, ARF, appy, cholecystitis, CVA, Diverticulitis, Homicidal, Suicidal, threat to staff... and all critical care pts) @ -No Disposition Clinical Impression: Right rib fracture Disposition: HOME SELF-CARE Condition: Good Additional Instructions: Every disease is a spectrum and a small chance still exists that a serious condition could develop, for this reason, please monitor yourself closely for new, changing or worsening symptoms, difficulty in breathing, new chest pain, coughing up blood or thick sputum, inability to tolerate/keep down fluids or your medications, inability to follow up with outpatient providers as instructed and should you experience these symptoms or should you have any further concerns for your wellbeing please return to the ED or call 911 immediately. Your pain can be treated with ibuprofen and acetaminophen. You can take up to 400-600 mg of ibuprofen (Advil, Motrin) 3 times daily (every 8 hours) but can also use lower doses if this relieves your pain. Some people prefer naproxen (Aleve, Naprosyn) which can be taken in doses of 500 mg up to twice a day. Do not take both of these medicines together, and do not combine either with ketorolac (Toradol), meloxicam (Mobic), or indomethacin (Tivorbex). Some people can develop stomach discomfort with higher doses of either ibuprofen or naproxen, if this develops decrease your dose or stop taking it. If you need to take this dose daily for more than a week, please schedule an appointment for re-evaluation with your PCP. Please take these medications with food. You can take up to 1000 mg of acetaminophen (Tylenol) every 6 hours. Be careful as this is included in some medicines like Nyquil, [place], Percocet, Vicodin, STANBACK, Goody's Powders, and Excedrin. You can also use lidocaine patches for topical pain. You can purchase 4% patches over the counter at most drug stores. These can be helpful for pain from your muscles or bones. PLEASE call your primary care physician as soon as possible to arrange / discuss plan for followup appointment. Appointment in the next 1-3 days is strongly encouraged if possible. PLEASE let us know here before you leave if there is anything further we can do to be of any assistance. Take care and feel Better! Prescriptions: Ibuprofen 600 mg PO Q8H PRN #30 tab PRN Reason: Pain Is patient prescribed a controlled substance at d/c from ED?: No Referrals: Kita Grimes MD [Primary Care Provider] - 1-2 days
[2024-07-18] MEDS: MORPHINE SULFATE 4 MG/ML SYRINGE IM STA (05:00)
[2024-07-18] MEDS: LIDOCAINE 4% PATCH TOPICAL ONE (05:01)
[2024-07-18] MEDS: ONDANSETRON ODT 4 MG TAB PO STA (05:01)
[2024-07-18] MEDS: tiZANidine 4 MG TAB PO STA (05:01)
[2024-07-18] MEDS: ORPHENADRINE 30 MG/ML 2 ML VIAL IM STA (05:58)
[2024-07-18] MEDS: KETOROLAC 15 MG/ML 1 ML VIAL IM STA (05:58)
--- NOTE | 2024-07-18 06:06 | XR ---
EXAM: XR Bilateral Ribs and AP Chest, 3 or More Views CLINICAL HISTORY: ITS.REASON XR Reason: fall 1 wk ago, right back,R. rib, R. chest pain TECHNIQUE: Frontal and oblique views of the bilateral ribs and frontal view of the chest. COMPARISON: No relevant prior studies available. FINDINGS: Lungs: Unremarkable. No consolidation. Pleural space: Unremarkable. No pneumothorax. Heart: Unremarkable. No cardiomegaly. Mediastinum: Unremarkable. Normal mediastinal contour. Bones/joints: Minimally displaced posterior lateral right eighth and ninth rib fractures. No left-sided rib fracture. IMPRESSION: Right-sided rib fractures without evidence of pneumothorax.
== END 2024-07-18 06:31 | disposition home or self-care (01) ==
LOC: EC 03:56
DX: S22.41XA Multiple fractures of ribs, right side, initial encounter for closed fracture (principal); G89.29 Other chronic pain; F17.200 Nicotine dependence, unspecified, uncomplicated; Z88.8 Allergy status to other drugs, medicaments and biological substances; Z91.040 Latex allergy status; W00.9XXA Unspecified fall due to ice and snow, initial encounter
CPT/HCPCS: 71111; 99285; 96372; J2270; J1885

== ENCOUNTER → 2024-11-02 | Outpatient (CLI) | payer OTHER ==
--- NOTE | 2024-11-02 16:59 | US ---
EXAMINATION TYPE: US pelvis complete transvag DATE OF EXAM: 11/02/2024 COMPARISON: 11/27/2022. CLINICAL INDICATION: Female, 49 years old with history of R10.2 PELVIS PAIN; Pain ablation 8 years ag o left ovary removed. TECHNIQUE: Transvaginal (TV) and Transabdominal (TA) . Doppler imaging: Not performed. FINDINGS: EXAM MEASUREMENTS: Uterus: 11.2 x 8.0 x 8.7 cm Endometrial Stripe: Not visualized. Right Ovary: Not visualized due to bowel gas. cm Left Ovary: Surgically absent 1. Uterus: Anteverted Multiple fibroids larges 8.0 x 7.1 x 6.3 cm 2. Endometrium: Obscured by fibroids. 3. Right Ovary: Obscured by overlying bowel gas 4. Left Ovary: Surgically absent 5. Bilateral Adnexa: wnl 6. Posterior cul-de-sac: wnl IMPRESSION: 1. No evidence for acute abdominal process. 2. Fibroid uterus. 3. Nonvisualization of the right ovary due to bowel gas. 4. Surgically absent left ovary. [facility], , 11/02/2024 4:57 PM
--- NOTE | 2024-11-03 07:05 | MM ---
Reason for Exam: Screening (asymptomatic). Last mammogram was performed 1 year(s) and 10 month(s) ago. Patient History: Menarche at age 13. First Full-Term at age 18. Left ovary removed at age 21. Mother had breast cancer, age 30. Risk Values: Keshia 5 year model risk: 1.7%. NCI Lifetime model risk: 16.5%. Prior Study Comparison: 03/10/2020 Bilateral Screening Mammogram, [facility]. 11/07/2021 Bilateral Screening Mammogram, [facility]. 01/01/2023 Bilateral MG 3D screening mammo w/cad, [facility]. Tissue Density: There are scattered areas of fibroglandular density. Findings: Analyzed By CAD. There is no suspicious group of microcalcifications or new suspicious mass in either breast. Overall Assessment: Negative, BI-RAD 1 Management: Screening Mammogram of both breasts in 1 year. . Patient should continue monthly self-breast exams. A clinical breast exam by your physician is recommended on an annual basis. This exam should not preclude additional follow-up of suspicious palpable abnormalities. Note on Keshia scores and lifetime risk: 1. A Keshia score greater than 3% is considered moderate risk. If this is the case, consider specialist referral to assess eligibility for a risk reducing agent. 2. If overall lifetime risk for the development of breast cancer is 20% or higher, the patient may qualify for future screening with alternating mammogram and breast MRI. [facility], , 11/03/2024 6:58 AM. Electronically signed and approved by: Ignacio Oleary M.D. Radiologis
== END | disposition home or self-care (01) ==
LOC: RADMAMWWP 16:07
PROVIDERS: ATTEND Obstetrics & Gynecology
DX: Z12.31 Encounter for screening mammogram for malignant neoplasm of breast (principal); R92.323 Mammographic fibroglandular density, bilateral breasts; D25.9 Leiomyoma of uterus, unspecified; Z80.3 Family history of malignant neoplasm of breast; Z90.721 Acquired absence of ovaries, unilateral
CPT/HCPCS: 76830; 76856; 77063; 77067